=== PATIENT | male | born 1965 | race Caucasian/White ===

== ENCOUNTER 2020-08-02 20:58 | Inpatient (IN) | payer OTHER, SELFPAY ==
[2020-08-02] VITALS (7 sets, daily range): BP systolic 104–143; BP diastolic 77–89; PULSE 92–165; RESP 17–36; TEMP 37.6; O2SAT 77–98
--- NOTE | ~2020-08-02 | XR_ITS ---
EXAMINATION: XR chest 1V portable DATE: 08/14/2020 08:01 INDICATION: Respiratory failure TECHNIQUE: frontal view of the chest was obtained. COMPARISON: Chest radiograph dated 08/13/2020 FINDINGS: Endotracheal tube tip 8.6 cm above the shoaib. Nasogastric tube extends below the left hemidiaphragm with distal tip collimated off the study. Left internal jugular central venous catheter with distal tip at the caudal superior vena cava. Severe bullous emphysema in the upper lung zones. Patchy airspace opacities throughout both lungs. No pneumothorax or definitive pleural effusion. The cardiomediastinal silhouette is normal. IMPRESSION: 1. Endotracheal tube tip 8.6 cm above the shoaib. Recommend advancement by 5-6 cm. 2. No significant interval change in extensive bilateral lung disease which could represent pneumonia , adult respiratory distress syndrome (ARDS), pulmonary edema or some combination thereof. 3. Severe bullous emphysema in the upper lung zones. Reviewed, dictated and finalized at location A. FILLER IMPRESSION: 1. Endotracheal tube tip 8.6 cm above the shoaib. Recommend advancement by 5-6 cm. 2. No significant interval change in extensive bilateral lung disease which cou ld represent pneumonia, adult respiratory distress syndrome (ARDS), pulmonary e yarelis or some combination thereof. 3. Severe bullous emphysema in the upper lung zones.
--- NOTE | ~2020-08-02 | XR_ITS ---
EXAMINATION: XR chest 1V portable DATE: 08/04/2020 14:34 INDICATION: Shortness of breath. TECHNIQUE: A single frontal view of the chest was obtained. COMPARISON: Chest single view 08/02/2020 FINDINGS: There are lucencies in the lungs, consistent with emphysema. There are airspace opacities i n all lung zones bilaterally with a lower lung predominance. No pleural effusion or pneumothorax. The heart size is normal. IMPRESSION: 1. Stable diffuse lung disease, consistent with pulmonary edema versus pneumonia. 2. Emphysema. Reviewed, dictated and finalized at location B. CLING COORDINATOR IMPRESSION: 1. Stable diffuse lung disease, consistent with pulmonary edema versus pneumoni a. 2. Emphysema.
--- NOTE | ~2020-08-02 | XR_ITS ---
EXAMINATION: XR chest 1V portable INDICATION: Respiratory failure TECHNIQUE: Portable AP chest at 2126 hours COMPARISON: None available FINDINGS: There are diffuse interstitial and airspace opacities throughout all lung zones. No pleural effusion or pneumothorax is identified. The cardiomediastinal silhouette is normal. IMPRESSION: 1. Diffuse lung disease, consistent with pneumonia/or pulmonary edema. Reviewed, dictated and finalized at location A. RVISOR DITCHING
--- NOTE | ~2020-08-02 | XR_ITS ---
EXAMINATION: XR chest 1V portable EXAM DATE: 08/10/2020 06:22 INDICATION: Acute hypoxic respiratory failure, COVID-19 Acute hypoxic respiratory failure, COVID-19 . TECHNIQUE: Portable AP frontal chest x-ray was obtained. Comparison is made to prior examination from 08/09, 08/07. FINDINGS: Endotracheal tube tip is 7 centimeters above the shoaib. This could be safely advanced 2 c m. There is a nasogastric tube seen with tip collimated off the study, but below the left hemidiaphra gm. Right-sided PICC line tip overlying cavoatrial junction. There is bilateral apical medial bullous disease. There is extensive bilateral pneumonia and/or edema . There are no sizable pleural effusions. There is no pneumothorax suspected. Cardiomediastinal silhouette is normal. The bones and soft tissues are unremarkable. There is no significant interval change compared to prior exam. IMPRESSION: 1. ET tube could be safely advanced 2 cm. 2. Extensive bilateral infection and/or edema. Reviewed, dictated and finalized at location A. ERN CHANGER AND REPAIRER
--- NOTE | ~2020-08-02 | XR_ITS ---
EXAMINATION: XR chest 1V portable EXAM DATE: 08/09/2020 06:06 INDICATION: Acute hypoxic respiratory failure, COVID-19. TECHNIQUE: Portable AP frontal chest x-ray was obtained. Comparison is made to prior examination from 08/08, 08/07. FINDINGS: Endotracheal tube tip is 7 centimeters above the shoaib. This could be safely advanced 2 c m. There is a nasogastric tube seen with tip collimated off the study, but below the left hemidiaphra gm. Right-sided PICC line tip poorly visualized but below the level of the shoaib. There is bilateral apical medial bullous disease. There is extensive bilateral pneumonia and/or edema . There are no sizable pleural effusions. There is no pneumothorax suspected. Cardiomediastinal silhouette is normal. The bones and soft tissues are unremarkable. There is no significant interval change compared to prior exam. IMPRESSION: 1. ET tube could be safely advanced 2 cm. 2. Extensive bilateral infection and/or edema. Reviewed, dictated and finalized at location A. N FORMING MACHINE OPERATOR
--- NOTE | ~2020-08-02 | XR_ITS ---
EXAMINATION: XR chest port-a-cath/central DATE: 08/10/2020 15:10 INDICATION: JACC line placement TECHNIQUE: frontal view of the chest was obtained. COMPARISON: Chest radiograph dated 08/10/2020 FINDINGS: Right upper extremity peripherally inserted central venous catheter (PICC) as well as a left internal jugular central venous catheter, both with distal tips at the superior cavoatrial junction. Endotrac heal tube tip 9.8 cm above the shoaib. Nasogastric tube with distal tip in the body of the stomach an d proximal side port near the level of the gastroesophageal junction. Groundglass opacities and increased interstitial pattern in the bilateral mid and lower lung zones. N o pneumothorax or definitive pleural effusion. Biapical and paramediastinal bullous emphysema. The ca rdiomediastinal silhouette is normal. IMPRESSION: 1. Right upper extremity PICC line and left internal jugular central venous catheter, both with dista l tips at the superior cavoatrial junction. 2. Endotracheal tube tip 9.8 cm above the shoaib. Recommend advancement by 7.5 cm. Findings were disc ussed with Mandy Berumen, the nurse caring for the patient, at 3:25 PM. 3. Nasogastric tube tip in the stomach. Consider advancement by 2-[address] the proximal side-por t below the level of the gastroesophageal junction. 4. Interstitial and airspace opacities in the bilateral mid and lower lung zones which could represen t pulmonary edema, pneumonia or some combination thereof. 3. Bullous emphysema. Reviewed, dictated and finalized at location B. ARER SAMPLES AND REPAIRS IMPRESSION: 1. Right upper extremity PICC line and left internal jugular central venous cat heter, both with distal tips at the superior cavoatrial junction. 2. Endotracheal tube tip 9.8 cm above the shoaib. Recommend advancement by 7.5 cm. Findings were discussed with Mandy Berumen, the nurse caring for the patien t, at 3:25 PM. 3. Nasogastric tube tip in the stomach. Consider advancement by 2-[address] the proximal side-port below the level of the gastroesophageal junction. 4. Interstitial and airspace opacities in the bilateral mid and lower lung zone s which could represent pulmonary edema, pneumonia or some combination thereof. 3. Bullous emphysema.
--- NOTE | ~2020-08-02 | XR_ITS ---
EXAMINATION: XR chest ET placement DATE: 08/14/2020 09:40 INDICATION: Endotracheal tube placement. TECHNIQUE: frontal view of the chest was obtained. COMPARISON: Chest radiograph dated 08/14/2020 at 7:45 AM FINDINGS: Endotracheal tube tip 4.2 cm above the shoaib. Nasogastric tube tip in proximal side port in the body of the stomach. Left internal jugular central venous catheter with distal tip at the caudal superior vena cava. Persistent diffuse airspace opacities throughout the lungs with bullous changes at the upper lung zon es. No pneumothorax or pleural effusion. The cardiomediastinal silhouette is normal. Visualized bones and soft tissues are unremarkable. IMPRESSION: 1. Endotracheal tube advanced with distal tip now 4.1 cm above the shoaib. 2. Unchanged extensive bilateral lung disease which could represent pneumonia, adult respiratory dist ress syndrome (ARDS), pulmonary edema or some combination thereof. 3. Severe bullous emphysema in the upper lung zones. Reviewed, dictated and finalized at location A. CIATE DEAN IMPRESSION: 1. Endotracheal tube advanced with distal tip now 4.1 cm above the shoaib. 2. Unchanged extensive bilateral lung disease which could represent pneumonia, adult respiratory distress syndrome (ARDS), pulmonary edema or some combination thereof. 3. Severe bullous emphysema in the upper lung zones.
--- NOTE | ~2020-08-02 | XR_ITS ---
EXAMINATION: XR chest 1V portable INDICATION: Acute hypoxic respiratory failure, COVID 19 TECHNIQUE: Portable AP chest at 0630 hours COMPARISON: 08/07/2020 FINDINGS: A right upper extremity PICC ends with its tip at the superior cavoatrial junction. There a re diffuse opacities in all lung zones with slight interval worsening. Bullous changes again noted me dially in the upper lung zones. The cardiomediastinal silhouette is stable. No pleural effusion or pn eumothorax is identified. IMPRESSION: 1. Diffuse lung disease with interval worsening, consistent with pneumonia and/or pulmonary edema and /or acute respiratory distress syndrome (ARDS). Reviewed, dictated and finalized at location A. R TILING PROFESSIONAL IMPRESSION: 1. Diffuse lung disease with interval worsening, consistent with pneumonia and/ or pulmonary edema and/or acute respiratory distress syndrome (ARDS).
--- NOTE | ~2020-08-02 | XR_ITS ---
EXAMINATION: XR chest ET placement INDICATION: Endotracheal tube insertion TECHNIQUE: Portable AP chest at 0951 hours COMPARISON: 0630 hours FINDINGS: An endotracheal tube has been inserted which ends 7.6 cm above the shoaib. A right upper ex tremity PICC ends with its tip at the superior cavoatrial junction. Diffuse opacities persist in all lung zones without significant change. The cardiomediastinal silhouette is stable. There is no pleura l effusion or pneumothorax. Bullous changes are noted medially in the upper lobes. IMPRESSION: 1. Inserted endotracheal tube ending 7.6 cm above the shoaib. 2. Stable diffuse lung disease, consistent with pneumonia and/or pulmonary edema and/or acute respira tory distress syndrome (ARDS). Reviewed, dictated and finalized at location A. E CUTTER IMPRESSION: 1. Inserted endotracheal tube ending 7.6 cm above the shoaib. 2. Stable diffuse lung disease, consistent with pneumonia and/or pulmonary gely a and/or acute respiratory distress syndrome (ARDS).
--- NOTE | ~2020-08-02 | XR_ITS ---
EXAMINATION: XR abdomen NG/feed tube insert INDICATION: OG tube placement TECHNIQUE: Portable AP KUB-NG at 0952 hours COMPARISON: None available FINDINGS: The OG tube is not visualized. The tip of the PICC ends at the superior cavoatrial junction . There our unchanged opacities of the visualized lung bases. The bowel gas pattern is normal. IMPRESSION: 1. OG tube not visualized. Reviewed, dictated and finalized at location A. KING MACHINE OPERATOR IMPRESSION: 1. OG tube not visualized.
--- NOTE | ~2020-08-02 | CT_ITS ---
EXAMINATION:CT diagnostic chest wo con DATE: 08/12/2020 14:10 INDICATION: Respiratory failure. COVID-19 pneumonia. TECHNIQUE: Computed tomography (CT) of the chest was performed without intravenous contrast. Automate d exposure control and iterative reconstruction technique were employed. The dose-length product (DLP ) was 772.98 mGy-cm. COMPARISON: Chest single view 08/02/2020, 08/12/2020 FINDINGS: There is moderate emphysema. There are patchy groundglass and airspace opacities throughout the lungs bilaterally. There is mild bronchiectasis in the right middle lobe and lingula. No signifi cant pleural effusion. The heart size is normal. There is a small pericardial effusion. The endotrach eal tube tip is in expected position above the shoaib. The nasogastric tube tip is in the stomach. Th ere is a left internal jugular central venous catheter with tip in right atrium. There is mild medias tinal lymphadenopathy. IMPRESSION: 1. Diffuse lung disease, consistent with pneumonia versus acute respiratory distress syndrome (ARDS). Some component of pulmonary edema may be present. 2. Moderate emphysema. 3. Small pericardial effusion. 4. Mild mediastinal lymphadenopathy, likely reactive. Reviewed, dictated and finalized at location A. ET ASSISTANT PRESS OPERATOR IMPRESSION: 1. Diffuse lung disease, consistent with pneumonia versus acute respiratory dis tress syndrome (ARDS). Some component of pulmonary edema may be present. 2. Moderate emphysema. 3. Small pericardial effusion. 4. Mild mediastinal lymphadenopathy, likely reactive.
--- NOTE | ~2020-08-02 | XR_ITS ---
EXAMINATION: XR chest 1V portable EXAM DATE: 08/12/2020 06:27 INDICATION: Acute respiratory failure . COVID pneumonia. TECHNIQUE: Portable AP frontal chest x-ray was obtained. Comparison is made to prior examination from 08/11. FINDINGS: There is a left-sided internal jugular line, tip at the cavoatrial junction There is a naso gastric tube seen with tip collimated off the study, but below the left hemidiaphragm. Endotracheal tube tip is 6 centimeters above the shoaib. There is bilateral apical medial bullous disease. There is extensive bilateral pneumonia and/or edema . There are no sizable pleural effusions. There is no pneumothorax suspected. Cardiomediastinal silhouette is normal. The bones and soft tissues are unremarkable. Airspace disease appears unchanged. IMPRESSION: 1. Tubes, line in position. 2. Extensive bilateral infection and/or edema. Reviewed, dictated and finalized at location A. NT SUPPORT MANAGER
--- NOTE | ~2020-08-02 | XR_ITS ---
EXAMINATION: XR chest 1V portable EXAM DATE: 08/05/2020 05:56 INDICATION: Diffuse infiltrates bilaterally. TECHNIQUE: Portable AP frontal chest x-ray was obtained. Comparison is made to prior examination from 08/04, 08/02. FINDINGS: Moderate amount of bilateral mid and lower lung zone predominant infection or edema. Probab le bullous disease along the medial aspect of the right lung. Borderline heart size. No pneumothorax or pleural effusion. There are no osseous abnormalities identified. IMPRESSION: Moderate bilateral mid and lower lung zone pneumonia and/or edema. Reviewed, dictated and finalized at location A. TREATER HEAD
--- NOTE | ~2020-08-02 | XR_ITS ---
EXAMINATION: XR abdomen NG/feed tube insert EXAM DATE: 08/08/2020 15:48 INDICATION: Nasogastric tube placement. TECHNIQUE: Frontal projection(s) of the abdomen for interpretation. Comparison is made to prior exami nation from earlier same date. FINDINGS: Feeding tube tip and side-port project over gastric bubble, adequate. Unremarkable upper a bdominal bowel gas pattern. There is rather extensive bibasilar airspace disease. IMPRESSION: Feeding tube in position. Reviewed, dictated and finalized at location A. TY OF COUNTER INTELLIGENCE IMPRESSION: Feeding tube in position.
--- NOTE | ~2020-08-02 | XR_ITS ---
EXAMINATION: XR chest 1V portable EXAM DATE: 08/11/2020 05:55 INDICATION: Acute hypoxic respiratory failure, COVID-19. TECHNIQUE: Portable AP frontal chest x-ray was obtained. Comparison is made to prior examination from 08/10. FINDINGS: There is a left-sided internal jugular line, tip at the cavoatrial junction There is a naso gastric tube seen with tip collimated off the study, but below the left hemidiaphragm. Endotracheal tube tip is 7 centimeters above the shoaib. This could be safely advanced 2 cm. There is bilateral apical medial bullous disease. There is extensive bilateral pneumonia and/or edema . There are no sizable pleural effusions. There is no pneumothorax suspected. Cardiomediastinal silhouette is normal. The bones and soft tissues are unremarkable. Airspace disease appears unchanged. IMPRESSION: 1. ET tube could be safely advanced 2 cm. 2. Extensive bilateral infection and/or edema. Reviewed, dictated and finalized at location A. CLERK
--- NOTE | ~2020-08-02 | US_ITS ---
EXAMINATION: US renal BI DATE: 08/10/2020 09:25 INDICATION: Acute kidney injury. TECHNIQUE: Multiple ultrasound grayscale images of the kidneys were obtained. COMPARISON: None. FINDINGS: The right kidney measures 11.4 x 4.0 x 4.8 cm. The left kidney measures 11.1 x 5.4 x 5.0 cm. The kidn eys demonstrate normal parenchymal echogenicity. There is no hydronephrosis. The bladder is decompres sed by a Danielle catheter. There is diffuse hepatic steatosis. IMPRESSION: 1. Normal kidneys. No hydronephrosis. 2. Diffuse hepatic steatosis. Reviewed, dictated and finalized at location A. S AND LEASING AGENT
--- NOTE | ~2020-08-02 | XR_ITS ---
EXAMINATION: XR chest 1V portable EXAM DATE: 08/13/2020 06:29 INDICATION: Acute respiratory failure COVID 19 pneumonia. TECHNIQUE: Portable AP frontal chest x-ray was obtained. Comparison is made to prior examination from 08/11, 08/12. FINDINGS: There is a left-sided internal jugular line, tip at the cavoatrial junction There is a naso gastric tube seen with tip collimated off the study, but below the left hemidiaphragm. Endotracheal tube tip is 6 centimeters above the shoaib. There is bilateral apical medial bullous disease. There is extensive bilateral pneumonia and/or edema . There are no sizable pleural effusions. There is no pneumothorax suspected. Cardiomediastinal silhouette is normal. The bones and soft tissues are unremarkable. Several regions of the airspace disease appeared to be slightly more confluent on today's exam. IMPRESSION: 1. Tubes, line in position. 2. Extensive bilateral infection and/or edema. Reviewed, dictated and finalized at location A. SURVEYOR
--- NOTE | ~2020-08-02 | XR_ITS ---
EXAMINATION: XR chest 1V portable INDICATION: Acute hypoxic respiratory failure TECHNIQUE: Portable AP chest at 0542 hours COMPARISON: 08/05/2020 FINDINGS: Diffuse interstitial and airspace opacities persist throughout all lung zones with slight w orsening. Bullous changes of the lungs are noted immediately, right worse than left. There is no pleu ral effusion or pneumothorax. The cardiomediastinal silhouette is stable. IMPRESSION: 1. Diffuse lung disease with interval worsening, consistent with pneumonia and/or pulmonary edema and /or acute respiratory distress syndrome (ARDS). Reviewed, dictated and finalized at location A. H MANAGER IMPRESSION: 1. Diffuse lung disease with interval worsening, consistent with pneumonia and/ or pulmonary edema and/or acute respiratory distress syndrome (ARDS).
--- NOTE | ~2020-08-02 | XR_ITS ---
EXAMINATION: XR chest PICC line EXAM DATE: 08/07/2020 17:50 INDICATION: PICC line placement. Diffuse infiltrates bilaterally. TECHNIQUE: Portable AP frontal chest x-ray was obtained. Comparison is made to prior examination from 08/05, 08/07. FINDINGS: There is a right-sided PICC line with tip projecting over the cavoatrial junction. Moderat e amount of bilateral mid and lower lung zone predominant infection or edema, not significantly leung ed. Probable bullous disease along the medial aspect of the right lung. The cardiomediastinal silhoue tte is prominent but magnified on this AP technique. Cardiac silhouette is stable in size compared to prior exam. No pneumothorax or pleural effusion. There are no osseous abnormalities identified. IMPRESSION: 1. PICC line in position. 2. Moderate bilateral mid and lower lung zone pneumonia and/or edema. Reviewed, dictated and finalized at location A. Y LEVEL ACCOUNTING CLERK
--- NOTE | ~2020-08-02 | US_ITS ---
EXAMINATION: US venous doppler UE RT EXAM DATE: 08/10/2020 11:20 INDICATION: swelling of right arm. Right-sided PICC line. TECHNIQUE: Multiple grayscale, color flow, Doppler sonographic images of the right upper extremity ve ins obtained by technologist. Compression was performed where able. There is no prior study for daniel forrester. FINDINGS: Right upper extremity: Jugular vein: ------------> Normal. Subclavian vein: --------> Thrombosed. Axillary vein:------------> Thrombosed. Brachial vein:-----------> Normal. Basilic vein: ------------> Normal. Cephalic vein: ----------> Thrombosed. Radial vein: ------------> Normal. Ulnar vein: > Normal. IMPRESSION: Positive for right subclavian, axillary DVT, cephalic SVT. I called these positive results to ICU nurse Mandy at 08/10/2020 11:24 ORGAN FIXER Reviewed, dictated and finalized at location A. N FIXER
--- NOTE | 2020-08-02 21:04 | ED.SOB ---
HPI - SOB/Dyspnea General Chief Complaint: Shortness of Breath/Dyspnea Stated Complaint: sob Time Seen by Provider: 08/02/20 21:02 History of Present Illness HPI Narrative: History limited by medical condition 55 yo male w/ h/o htn brought in by EMS from custodial for respiratory distress. He reports that he has been sick for more than 1 week. He was previously having nausea, diarrhea, body aches. He believes that he was having fevers as well. More recently he developed cough and SOB. He was placed on 15L by NRB and O2 saturation is still in the 80s. No CP. 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 Related Data Allergies Allergy/AdvReac Type Severity Reaction Status Date / Time No Known Allergies Allergy Verified 08/02/20 21:37 Review of Systems Constitutional: Constitutional: Reports fever(s) ENT: Denies sore throat Cardiovascular: Cardiovascular: Denies chest pain Respiratory: Respiratory: Reports chest congestion, Reports cough and Reports dyspnea Gastrointestinal: Gastrointestinal: Denies abdominal pain and Denies nausea Musculoskeletal: Musculoskeletal: Denies back pain Neurologic: Reports weakness PMFSH Past Medical History Medical History HTN (hypertension) Exam Const: General: alert and ill appearing Orientation/consciousness: patient oriented x3 Other: moderate distress HENMT: Head: normal to inspection Other: NRB in place Neck: Neck: normal visual inspection Chest: Chest palpation & inspection: normal inspection of the chest and no tenderness Resp: Effort & Inspection: tachypneic Auscultation: crackles Cardio: Rate: tachycardic GI: GI Palp: Yes Soft to palpation and No Tenderness to palpation present (GI) Skin: General skin exam: normal color Neuro: General: patient oriented x3, moves all extremities and CN's II-XI intact bilaterally Extrem: General: normal to inspection and no edema Course Vital Signs Vital signs: Vital Signs Temperature 37.6 C 08/02/20 20:58 Pulse Rate 165 H 08/02/20 20:58 Respiratory Rate 36 H 08/02/20 20:58 Blood Pressure 143/86 H 08/02/20 20:58 Pulse Oximetry 88 L 08/02/20 20:58 Temperature 37.6 C 08/02/20 20:58 Pulse Rate 94 08/02/20 22:46 Respiratory Rate 25 H 08/02/20 22:46 Blood Pressure 120/86 08/02/20 22:46 Pulse Oximetry 97 08/02/20 22:46 MDM - SOB/Dyspnea MDM Narrative Medical decision making narrative: He presneted in respiratory failure and very tachycardic. He was placed on BIPAP with significant improvement. Rhythm was difficult to determine. He was given a dose of diltiazem with incomplete response. On repeat EKG there were still no visible p-waves. He was given 6mg adenosine with change, followed by 12 mg. He then converted to sinus. X-ray concerning for pneumonia. Most likely COVID, but I will start antibiotics until this can be confirmed. Differential Diagnosis Differential diagnosis: Likely acute exacerbation of chronic obstructive airways disease, congestive heart failure, community acquired pneumonia, pulmonary embolism and other (SVT, a-fib) Medical Records Attestation: I reviewed the patient's medical records. Lab Data Attestation: I reviewed the patient's lab results. Result diagrams: 08/02/20 21:18 08/02/20 21:18 Labs: Lab Results 08/02/20 08/02/20 08/02/20 Range/Units 21:18 21:18 21:18 WBC 7.5 (4.5-10.0) K/mm3 RBC 5.41 (4.6-6.20) M/mm3 Hgb 15.9 (14.0-18.0) g/dL Hct 46.4 (42.0-52.0) % MCV 85.8 (80-100) fl MCH 29.4 (26-34) pg MCHC 34.3 (32-36) g/dl RDW 12.7 (11.5-14.5) % Plt Count 143 L (150-375) k/mm3 MPV 10.8 H (7.4-10.4) fl Immature Gran % (Auto) Not Reportable Neut % (Auto) Not Reportable Lymph % (Auto) Not Reportable [place] % (Auto) Not Reportable Eos % (Auto) Not Reportable Baso % (Auto) Not Reportable L
--- NOTE | 2020-08-02 21:07 | ECG_ITS ---
Measurements Intervals [place] Rate: 166 P: ND: 0 QRS: 110 QRSD: 84 T: 29 QT: 252 QTc: 420 Interpretive Statements SUPRAVENTRICULAR TACHYCARDIA RIGHT AXIS DEVIATION ST-T WAVE ABNORMALITY IN INFERIOR LEADS- CONSIDER ISCHEMIA BASELINE ARTIFACT- I, II, III, AVR, AVL, AVF ABNORMAL ECG Electronically Signed On 08-02-2020 21:46:42 HEAD WOOD GRINDER by Jair Enamorado D.O.
[2020-08-02] MEDS: dilTIAZem HCl INJ 25 MG/5 ML VIAL (21:14)
[2020-08-02 21:29] LABS: Hematocrit 46.4 % (42.0-52.0); Hemoglobin 15.9 g/dL (14.0-18.0); Immature Platelet Fraction Pct 7.4 % (0.9-11.2); Mean Corpuscular HGB Conc 34.3 g/dl (32-36); Mean Corpuscular Hemoglobin 29.4 pg (26-34); Mean Corpuscular Volume 85.8 fl (80-100); Mean Platelet Volume 10.8 fl (7.4-10.4); Platelet Count Result 143 k/mm3 (150-375); Red Blood Count 5.41 M/mm3 (4.6-6.20); Red Cell Distribution Width 12.7 % (11.5-14.5); White Blood Count 7.5 K/mm3 (4.5-10.0)
[2020-08-02 21:42] LABS: Lactic Acid Reflex 2.3 mmol/L (0.7-2.1)
[2020-08-02 21:45] LABS: Alanine Aminotransferase 47 U/L (4-50); Alkaline Phosphatase 80 U/L (38-126); Anion Gap 9 mmol/L (8-16); Aspartate Amino Transferase 121 U/L (17-59); Band Neutrophils Percent 7 % (0-6); Bilirubin,Total 0.6 mg/dL (0.2-1.3); Blood Urea Nitrogen 24 mg/dL (9-20); CRP 4.6 mg/dL (<1.0); Calcium 8.4 mg/dL (8.4-10.2); Carbon Dioxide 27 mmol/L (22-30); Chloride 98 mmol/L (98-107); Estimated CRCL calculation 58 ml/min; Estimated Glomerular Filt Rate 42; Glucose 155 mg/dL (75-110); Monocytes Absolute Manual 0.82 K/mm3 (0.1-0.90); Monocytes Percent Manual 11 % (3-9); Neutrophils Absolute Manual 4.87 K/mm3 (1.3-6.7); Neutrophils Percent Manual 58 % (46-73); Potassium 3.8 mmol/L (3.4-5.0); Sodium 134 mmol/L (137-145); Total Cells Counted 100
--- NOTE | 2020-08-02 21:47 | ECG_ITS ---
Measurements Intervals [place] Rate: 153 P: AL: 0 QRS: 90 QRSD: 84 T: 36 QT: 272 QTc: 434 Interpretive Statements SUPRAVENTRICULAR TACHYCARDIA BORDERLINE ST-T WAVE ABNORMALITY- INFERIOR LEADS BASELINE WANDER- I, II, AVR, AVL, AVF ABNORMAL ECG Electronically Signed On 08-03-2020 7:14:00 CHIEF SCIENTIFIC OFFICER by Jair Enamorado D.O.
[2020-08-02 21:51] LABS: NT Pro B Type Natriuretic Pept 82 PG/ML (5-100)
[2020-08-02 21:53] LABS: Troponin I 0.019 ng/mL (0.000-0.034)
[2020-08-02 21:58] LABS: INR 0.9; Prothrombin Time 12.8 Seconds (11.1-14.7)
[2020-08-02 21:59] LABS: Partial Thromboplastin Time 29.7 SECONDS (22.3-36.8)
[2020-08-02] MEDS: ADENOSINE IV SOLN 6 MG/2 ML VIAL IV PUSH (22:05)
[2020-08-02] MEDS: SODIUM CHLORIDE 0.9% IV 1,000 ML 999 ML IV CONT (22:11)
[2020-08-02] MEDS: ADENOSINE IV SOLN 6 MG/2 ML VIAL 12 MG (22:12)
[2020-08-02 22:54] LABS: Alveolar/Arterial O2 Gradient 554.8 mmHg; Base Excess ABG -0.6 mEq/l (+/-2.0); Device BIPAP; Fractional Inspired Oxygen 100 %; HCO3 ABG 23.2 mEq/l (22.0-26.0); Inspiratory Pressure 12 cmH2O; Modified Allen's Test Pass; Oxygen Content ABG 20.1 %vol (16.0-22.0); Oxygen Saturation ABG 98.5 % (95.0-100.0); PCO2 ABG 35.8 mmHg (35.0-45.0); PO2 ABG 122.4 mmHg (80.0-100.0); PO2 FiO2 Ratio Arterial Blood 1.22 %; Site Drawn RIGHT RADIAL; Total Hemoglobin 14.6 g/dL (12.0-18.0); pH ABG 7.429 (7.350-7.450)
[2020-08-02 22:55] LABS: Expiratory Pressure 6 cmH2O
[2020-08-03] VITALS (21 sets, daily range): BP systolic 132–155; BP diastolic 74–87; PULSE 69–96; RESP 18–39; TEMP 36.3–36.7; O2SAT 90–97; BMI 31.4
[2020-08-03 00:25] LABS: Reflex Lactic Acid Yes or No Add Lactic
--- NOTE | 2020-08-03 00:33 | ADMGEN ---
This patient, Inocente Brink, was admitted to IMU Room 213-01. Patient/family oriented to hospital policies and general routines including ID bracelet, bed and alarms, visiting hours, pain management, procedures, bathroom and other care routines, personal items, smoking policy, room service/diet, and visiting hours. Information on how to activate the Rapid Response Team has been discussed. Patient/Family are encouraged to report perceived risks to care and to ask questions if they do not understand what they are told or what they should do. Report from Stephanie ISLVA approx [id number]
[2020-08-03] MEDS: LACTATED RINGERS 1,000 ML 100 ML IV CONT ×2 (00:51→11:00)
[2020-08-03 01:29] LABS: Lactic Acid 1.3 mmol/L (0.7-2.1)
[2020-08-03] MEDS: ALBUTEROL SULFATE NEB 2.5 MG/0.5 ML INH 5 MG INHALATION (03:13)
--- NOTE | 2020-08-03 04:03 | PM.IMHP ---
H&P: HPI History of Present Illness Date/Time: 08/03/20 04:03 Chief Complaint: acute respiratory distress Narrative: This is a 55 year old male with known HTN and hyperlipidemia who was [facility] secondary to increased shortness of breath and respiratory distress tonight. The patient has had increased shortness of breath, cough, fever, fatigue, body aches and pains for the past week. The patient was initiated on Bipap in the ER tonight. He denies any chest pain, palpitations, abdominal pain, diarrhea, or LE swelling. Routine labs were obtained which demonstrated acute renal failure. CXR showed siffuse lung disease, consistent with pneumonia/or pulmonary edema. We was swabbed for COVID-19 and treated with bronchodilators, antibiotics, and dexamethasone IV. 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 While in the ER tonight the patient did develop SVT and converted back to sinus rhythm with a dose of adenosine IVP. Review of Systems Review of Systems: All systems reviewed & are unremarkable except as noted in HPI and below PMFSH Past Medical History Medical History (Updated 08/03/20 @ 04:57 by Sukumar Soto MD) HTN (hypertension) Hyperlipidemia Family History Family History Father Heart attack Mother Ovarian ca Sibling Diabetes mellitus Social History Social History Smoking status: Never smoker Alcohol intake: never Substance use: never Gender identity (if verbalized by the patient): Male Spiritual care concerns: No Meds Home Medications and Allergies Home Medications Medication Instructions Recorded Confirmed Type amlodipine 10 mg PO DAILY 08/03/20 08/03/20 History mirtazapine 30 mg PO DAILY 08/03/20 08/03/20 History omeprazole 20 mg PO DAILY 08/03/20 08/03/20 History sertraline 50 mg PO DAILY 08/03/20 08/03/20 History simvastatin 20 mg PO HS 08/03/20 08/03/20 History tamsulosin 0.4 mg PO DAILY 08/03/20 08/03/20 History Allergies Allergy/AdvReac Type Severity Reaction Status Date / Time strawberry Allergy Unknown Unknown Verified 08/03/20 00:39 hot sauce Allergy Unknown Unknown Uncoded 08/03/20 00:39 Vital Signs Vital Signs - 24 hr 08/02/20 20:58 08/02/20 21:31 08/02/20 21:40 Temperature 37.6 C Pulse Rate 165 H 161 H 157 H Respiratory Rate 36 H 33 H 22 H Blood Pressure 143/86 H 104/80 Pulse Oximetry 88 L 77 L 94 08/02/20 22:10 08/02/20 22:27 08/02/20 22:31 Temperature Pulse Rate 92 92 95 Respiratory Rate 24 H 17 20 Blood Pressure 123/78 104/77 121/89 Pulse Oximetry 98 98 98 08/02/20 22:46 08/03/20 00:00 08/03/20 02:00 Temperature 36.6 C Pulse Rate 94 86 87 Respiratory Rate 25 H 39 H Blood Pressure 120/86 155/87 H Pulse Oximetry 97 97 08/03/20 02:09 08/03/20 03:13 08/03/20 03:45 Temperature Pulse Rate 86 82 Respiratory Rate 25 H 25 H Blood Pressure Pulse Oximetry 96 93 Exam Const: General: cooperative, alert, awake, in distress respiratory and ill appearing Nutritional Appearance: obese Orientation/consciousness: patient oriented x3 HENMT: Head: normal to inspection General nose exam: Normal external nose present Face and sinus: normal facial exam Mouth: Yes Normal oral and palatal mucosa present and Yes oropharynx normal Eyes: Pupils: Equal, round and reactive pupils present EOM: EOMs intact bilaterally Neck: Neck: supple and no JVD Thyroid: thyroid normal Lymphatic: lymphadenopathy not noted Resp: Effort & Inspection: labored and tachypneic Auscultation: rales bilateral and diminished lung sounds bilateral Cardio: Rate: tachycardic Rhythm: regular rhythm Heart sounds: no murmurs GI: Inspection: normal to inspection Auscultation: normal bowel sounds Skin: General skin exam: normal color and no rashes or lesions noted Neuro: General: patient oriented x3 C
[2020-08-03 05:08] LABS: Basophils Percent Auto 0.2 % (0.2-1.2); Hematocrit 41.5 % (42.0-52.0); Hemoglobin 14.2 g/dL (14.0-18.0); Immature Granulocyte Absolute 0.02 K/mm3 (0.00-0.031); Immature Granulocyte Percent A 0.4 % (0-0.5); Lymphocytes Absolute Auto 0.71 K/mm3 (0.9-3.2); Lymphocytes Percent Auto 12.5 % (18.3-44.2); Mean Corpuscular HGB Conc 34.2 g/dl (32-36); Mean Corpuscular Volume 84.9 fl (80-100); Mean Platelet Volume 9.8 fl (7.4-10.4); Monocytes Absolute Auto 0.4 K/mm3 (0.1-0.6); Monocytes Percent Auto 7.1 % (2.6-8.5); Neutrophils Absolute Auto 4.5 K/mm3 (1.3-6.7); Neutrophils Percent Auto 79.8 % (45.5-73.1); Platelet Count Result 157 k/mm3 (150-375); Red Blood Count 4.89 M/mm3 (4.6-6.20); Red Cell Distribution Width 12.3 % (11.5-14.5); White Blood Count 5.7 K/mm3 (4.5-10.0)
[2020-08-03 05:19] LABS: Anion Gap 6 mmol/L (8-16); Blood Urea Nitrogen 22 mg/dL (9-20); Calcium 7.9 mg/dL (8.4-10.2); Carbon Dioxide 27 mmol/L (22-30); Chloride 100 mmol/L (98-107); Estimated CRCL calculation 71 ml/min; Estimated Glomerular Filt Rate 52; Glucose 207 mg/dL (75-110); Magnesium 2.1 mg/dL (1.6-2.3); Potassium 4.5 mmol/L (3.4-5.0); Sodium 133 mmol/L (137-145)
[2020-08-03 05:44] LABS: Hemoglobin A1C 6.8 % (<5.7)
[2020-08-03 06:26] LABS: Thyroid Stimulating Hormone Reflex 0.227 uIU/mL (0.465-4.68)
[2020-08-03] MEDS: ENOXAPARIN 40 MG/0.4 ML SYRINGE SUB-Q (08:13)
[2020-08-03] MEDS: SERTRALINE HCL 50 MG TABLET PO (08:16)
[2020-08-03] MEDS: PANTOPRAZOLE SOD SESQUIHYDRATE 20 MG TAB PO (08:16)
[2020-08-03] MEDS: TAMSULOSIN HCL 0.4 MG CAPSULE PO (08:16)
[2020-08-03] MEDS: amLODIPine BESYLATE 5 MG TABLET 10 MG PO (08:16)
[2020-08-03] MEDS: MIRTAZAPINE 30 MG TABLET PO (08:16)
[2020-08-03] MEDS: LEVALBUTEROL HFA (*SP) 15 GM INHALER 2 PUFF INHALATION ×3 (08:33→21:57)
[2020-08-03 09:25] LABS: Free T4 Free Thyroxine Reflex 0.85 ng/dL (0.78-2.19)
--- NOTE | 2020-08-03 10:46 | PM.CNCAR ---
Assessment and Plan Assessment and plan (1) SVT (supraventricular tachycardia): Code(s): I47.1 - Supraventricular tachycardia Status: Resolved Assessment and Plan: New onset of SVT, probably related to adrenergic excess due to the patient's acute illness. No recurrence since admission. TSH was low, further thyroid testing is still pending No specific therapy recommended at this time, since I think the likelihood of recurrence is low. Adenocard 12 mg IVP if recurrence. Will follow on telemetry. (2) Suspected 2019-nCoV infection: Code(s): Z20.822 - Contact with and (suspected) exposure to COVID-19 Status: Acute Assessment and Plan: Hypoxic on admission with elevated lactic acid. Being treated for possible COVID pneumonia. (3) HTN (hypertension): Qualifiers: Hypertension type: unspecified Qualified Code(s): I10 - Essential (primary) hypertension Code(s): I10 - Essential (primary) hypertension Status: Chronic Assessment and Plan: Today but is on therapy. Will follow. (4) Acute renal failure: Qualifiers: Acute renal failure type: unspecified Qualified Code(s): N17.9 - Acute kidney failure, unspecified Code(s): N17.9 - Acute kidney failure, unspecified Status: Acute Assessment and Plan: Acute renal failure which seems to be improving. History of Present Illness History of Present Illness Consult date/time: Date of service: 08/03/20 10:46 Consult reason: Other (PSVT) Reason For Visit: Acute hypoxemic respiratory failure, Pneumonia, Narrative: DOS: 08/03/2020 Mr. Inocente Rodriguez is a 55-year-old male whom we were asked to see at the request of the hospitalist for advice and opinion regarding his SVT, in consultation. 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 Yesterday he was so weak he could not stand up. He felt palpitations. No chest pain. When the ambulance arrived his O2 saturations were in the 70s to 80s and his heart rate was in the 160s to 170s. He was brought to the ER and was in SVT. He was given adenosine 6 mg followed by 12 mg and converted to sinus rhythm. He has maintained sinus rhythm overnight. He had a low grade temperature. His x-ray is concerning for pneumonia and is being treated for presumed COVID pneumonia. The patient has a history of hypertension. He has never had any tachycardia or SVT in the past. He has no specific history of heart disease, heart attacks or heart failure. He wants passed out and was told his heart rate was too low. No recurrent syncope. No diabetes (the found to have elevated blood sugars and A1c of 6.8 on this admission) or smoking. Reviewed records in [facility]; only visit through [facility] was in 2017, an ER visit for [facility] [employer]. The hisroty in that record showed HTN, a suicide attempt, a cardiac arrest, and anti phospholipid syndrome. There were no records of this pt in Care Everywhere. Review of Systems Constitutional: Constitutional: Reports body ache(s), Reports chills, Reports fatigue, Reports lethargy and Reports weakness Eyes: Eyes: Reports no additional eye complaints ENT: Denies epistaxis and Denies nasal congestion Cardiovascular: Cardiovascular: Denies chest pain, Denies pedal edema, Reports lightheadedness and Reports palpitations Respiratory: Respiratory: Denies chest congestion, Reports cough, Denies hemoptysis, Reports dyspnea, Reports dyspnea on exertion and Denies wheezing Gastrointestinal: Gastrointestinal: Denies abdominal
[2020-08-03 11:27] LABS: Total Triiodothyronine (T3) 0.71 NG/ML (0.97-1.69)
--- NOTE | 2020-08-03 17:47 | PM.IMPN ---
Progress Note: A&P Assessment and Plan (1) Suspected 2019-nCoV infection: Code(s): Z20.822 - Contact with and (suspected) exposure to COVID-19 Status: Acute Assessment and Plan: High suspicion for COVID-19 but results are pending. Continue droplet isolation. Continus Dexamethasone IV. Supportive care. Antitussives. Consider starting Remdesivir if COVID-19 Continue monitoring. (2) Acute respiratory failure with hypoxia: Code(s): J96.01 - Acute respiratory failure with hypoxia Status: Acute Assessment and Plan: Appears to be secondary to pneumonia - likely COVID-19 pneumonia. He was able to be weaned off BiPAP and is down high-flow nasal cannula. Continue treatment of pneumonia. RT assess and treat. Continuous pulse oximetry. (3) Pneumonia: Qualifiers: Laterality: bilateral Lung location: unspecified part of lung Pneumonia type: due to unspecified organism Qualified Code(s): J18.9 - Pneumonia, unspecified organism Code(s): J18.9 - Pneumonia, unspecified organism Status: Acute Assessment and Plan: Likely COVID-19 pneumonia. Continue IV antibiotics for now and de escalate when possible. Denies much of a cough, most likely from COVID. Sputum cultures, urine pneumococcal antigen. Bronchodilators PRN and scheduled. (4) SVT (supraventricular tachycardia): Code(s): I47.1 - Supraventricular tachycardia Status: Resolved Assessment and Plan: Likely secondary to acute respiratory failure. Able to be converted in the ER with IV adenosine now in normal sinus rhythm. Cardiology consulted for further evaluation. Check all electrolytes. Continue telemetry. Cardiology consultation in am. (5) Acute renal failure: Qualifiers: Acute renal failure type: unspecified Qualified Code(s): N17.9 - Acute kidney failure, unspecified Code(s): N17.9 - Acute kidney failure, unspecified Status: Acute Assessment and Plan: Acute vs. Chronic renal failure Will DC IV fluids at this time. Renal function is improved and 1.4 today. Do not want to overload on fluids if he has COVID. Monitor urine output and renal function. Avoid nephrotoxic agents, renally dose medications. Consider renal ultrasound and nephrology consultation if renal function does not improve. (6) Abnormal glucose: Code(s): R73.09 - Other abnormal glucose Status: Acute Assessment and Plan: r/o undiagnosed diabetes mellitus. HgbA1c 6.8%. Will start sliding scale insulin. Glucose check ACHS. Hypoglycemic protocol in place. (7) HTN (hypertension): Qualifiers: Hypertension type: unspecified Qualified Code(s): I10 - Essential (primary) hypertension Code(s): I10 - Essential (primary) hypertension Status: Chronic Assessment and Plan: Stable. 144/83. Monitor blood pressure. Continue amlodipine. (8) Hyperlipidemia: Qualifiers: Hyperlipidemia type: unspecified Qualified Code(s): E78.5 - Hyperlipidemia, unspecified Code(s): E78.5 - Hyperlipidemia, unspecified Status: Chronic Assessment and Plan: Resume home statin therapy in am. Time Spent With Patient Time with patient: 25 - 35 minutes Subjective Date/time seen: 08/03/20 17:47 Interval history: Date of service 08/03/2020: The patient is escorted by state police since he came from skilled nursing. Today he does report some shortness of breath but is resting comfortably on high-flow nasal cannula. He did have worsening shortness of breath with a
[2020-08-03 18:38] LABS: SARS-CoV-2 RNA PCR Negative
[2020-08-03] MEDS: SODIUM CHLORIDE NASAL GEL 14.1 GM 1 APPLIC NASAL (19:57)
[2020-08-03 22:02] LABS: Glucose Point of Care 373 (65-105)
[2020-08-04] VITALS (25 sets, daily range): BP systolic 126–155; BP diastolic 72–96; PULSE 69–92; RESP 20–38; TEMP 36.2–36.8; O2SAT 90–100
[2020-08-04 05:51] LABS: Basophils Percent Auto 0.1 % (0.2-1.2); Hematocrit 42.9 % (42.0-52.0); Hemoglobin 14.9 g/dL (14.0-18.0); Immature Granulocyte Absolute 0.07 K/mm3 (0.00-0.031); Immature Granulocyte Percent A 0.6 % (0-0.5); Lymphocytes Absolute Auto 1.06 K/mm3 (0.9-3.2); Lymphocytes Percent Auto 8.5 % (18.3-44.2); Mean Corpuscular HGB Conc 34.7 g/dl (32-36); Mean Corpuscular Hemoglobin 29.6 pg (26-34); Mean Corpuscular Volume 85.3 fl (80-100); Mean Platelet Volume 9.9 fl (7.4-10.4); Monocytes Absolute Auto 0.9 K/mm3 (0.1-0.6); Monocytes Percent Auto 7.6 % (2.6-8.5); Neutrophils Absolute Auto 10.4 K/mm3 (1.3-6.7); Neutrophils Percent Auto 83.2 % (45.5-73.1); Platelet Count Result 229 k/mm3 (150-375); Red Blood Count 5.03 M/mm3 (4.6-6.20); Red Cell Distribution Width 12.5 % (11.5-14.5); White Blood Count 12.4 K/mm3 (4.5-10.0)
[2020-08-04 07:42] LABS: Alanine Aminotransferase 45 U/L (4-50); Albumin Level 3.5 g/dL (3.5-5.1); Alkaline Phosphatase 74 U/L (38-126); Anion Gap 2 mmol/L (8-16); Aspartate Amino Transferase 95 U/L (17-59); Bilirubin,Total 0.6 mg/dL (0.2-1.3); Blood Urea Nitrogen 22 mg/dL (9-20); CRP 4.9 mg/dL (<1.0); Calcium 8.5 mg/dL (8.4-10.2); Carbon Dioxide 31 mmol/L (22-30); Chloride 101 mmol/L (98-107); Estimated CRCL calculation 89 ml/min; Estimated Glomerular Filt Rate > 60; Glucose 219 mg/dL (75-110); Potassium 5.1 mmol/L (3.4-5.0); Sodium 134 mmol/L (137-145)
[2020-08-04 07:56] LABS: Ferritin > 2000.00 ng/mL (11.1-264)
[2020-08-04 08:09] LABS: Lactate Dehydrogenase 2648 U/L (313-618)
[2020-08-04] MEDS: SERTRALINE HCL 50 MG TABLET PO (09:01)
[2020-08-04] MEDS: PANTOPRAZOLE SOD SESQUIHYDRATE 20 MG TAB PO (09:01)
[2020-08-04] MEDS: amLODIPine BESYLATE 5 MG TABLET 10 MG PO (09:01)
[2020-08-04] MEDS: MIRTAZAPINE 30 MG TABLET PO (09:01)
[2020-08-04] MEDS: TAMSULOSIN HCL 0.4 MG CAPSULE PO (09:01)
[2020-08-04] MEDS: ENOXAPARIN 40 MG/0.4 ML SYRINGE SUB-Q ×2 (09:02→19:48)
[2020-08-04 11:26] LABS: Glucose Point of Care 197 (65-105)
[2020-08-04 12:34] LABS: Glucose Point of Care 340 (65-105)
[2020-08-04] MEDS: INSULIN ASPART (*BKC) 100 UNITS/ML SUB-Q ×2 (12:52→19:05)
--- NOTE | 2020-08-04 14:20 | PM.IMPN ---
Progress Note: A&P Assessment and Plan (1) Suspected 2019-nCoV infection: Code(s): Z20.822 - Contact with and (suspected) exposure to COVID-19 Status: Acute Assessment and Plan: High suspicion for COVID since he is currently in alf and multiple people in his wean have tested positive. His 1st COVID test on 07/30/2020 was negative but we retested last night and results are pending. Based on the patient's symptoms and respiratory status he does appear to have COVID-19. He has worsening shortness of breath today and is currently on BiPAP with tachypnea and is getting tired on the BiPAP. Will order Stat ABG and repeat CXR The molding sander was consulted who is moving him to the ICU for a closer evaluation and possibly intubation if his respiratory status continues to deteriorate. The intensive is asked me to call the infectious disease specialist in regards to starting IV Tocilizumab and Dr. Flores does recommend starting. Started on Remdesivir and continue Dexamethasone IV. Continue droplet isolation. Supportive care. Antitussives. (2) Acute respiratory failure with hypoxia: Code(s): J96.01 - Acute respiratory failure with hypoxia Status: Acute Assessment and Plan: Appears to be secondary to pneumonia - likely COVID-19 pneumonia. Respiratory status deteriorated today and he is currently on BiPAP, tachypneic and is going to be moved to ICU for further evaluation and care and possible intubation if he continues to deteriorate and becomes hypoxic. Continue treatment of COVID pneumonia. RT assess and treat. Continuous pulse oximetry. (3) Pneumonia: Qualifiers: Laterality: bilateral Lung location: unspecified part of lung Pneumonia type: due to unspecified organism Qualified Code(s): J18.9 - Pneumonia, unspecified organism Code(s): J18.9 - Pneumonia, unspecified organism Status: Acute Assessment and Plan: Likely COVID-19 pneumonia. Continue IV antibiotics for now and de escalate when possible. Denies much of a cough, most likely from COVID. Sputum cultures, urine pneumococcal antigen. Bronchodilators PRN and scheduled. (4) SVT (supraventricular tachycardia): Code(s): I47.1 - Supraventricular tachycardia Status: Resolved Assessment and Plan: Likely secondary to acute respiratory failure. Able to be converted in the ER with IV adenosine now in normal sinus rhythm. Cardiology evaluated the patient who believes that is due to his acute illness. Recommended continue monitoring and to administer 12 mg of IV Adenocard if it reoccurs. Check all electrolytes. Continue telemetry. Cardiology consultation in am. (5) Acute renal failure: Qualifiers: Acute renal failure type: unspecified Qualified Code(s): N17.9 - Acute kidney failure, unspecified Code(s): N17.9 - Acute kidney failure, unspecified Status: Acute Assessment and Plan: Acute vs. Chronic renal failure Will DC IV fluids 08/03/2020. Renal function is improved and 1.1 today. Do not want to overload on fluids if he has COVID. Monitor urine output and renal function. Avoid nephrotoxic agents, renally dose medications. Consider renal ultrasound and nephrology consultation if renal function does not improve. (6) Abnormal glucose: Code(s): R73.09 - Other abnormal glucose Status: Acute Assessment and Plan: Appears patient may have diabetes which seems to be new onset. Is also on steroids at this time. HgbA1c 6.8%. Serum glucose this morning was 219. Will start sliding scale insulin. Glucose check ACHS. Hypoglycemic protocol in place. (7) HTN (hypertension):
--- NOTE | 2020-08-04 14:38 | WPDCNINT ---
Assessment and Plan Assessment and plan (1) Acute respiratory failure with hypoxia: Code(s): J96.01 - Acute respiratory failure with hypoxia Status: Acute Assessment and Plan: Acute respiratory failure requiring BiPAP /, 100% FiO2 -likely related to COVID-19 pneumonia as a lot of people tested positive COVID-19 in the presence -SARS-CoV-2 PCR on 08/02 was negative, repeat SARS-CoV-2 PCR pending -continue BiPAP for now, will transfer patient to ICU for closer monitoring -repeat chest x-ray shows stable diffuse lung disease consistent with pulmonary versus pneumonia, emphysema - ABGs reviewed -discussed with patient that if his condition worsens he will require mechanical ventilation to which she agrees (2) Suspected 2019-nCoV infection: Code(s): Z20.822 - Contact with and (suspected) exposure to COVID-19 Status: Acute Assessment and Plan: SARS-CoV-2 PCR PCR on 08/02 is negative, repeat SARS-CoV-2 PCR on 08/04 is pending -continue droplet, airborne and contact isolation/precautions -continue dexamethasone which was initiated on 08/03/2020 -infectious disease consulted and recommended that patient is a candidate for Tocilizumab from EMPACTA trial -will start Remdesivir -transfuse convalescent plasma -elevated LDH, ferritin, CRP -will monitor inflammatory markers (3) SVT (supraventricular tachycardia): Code(s): I47.1 - Supraventricular tachycardia Status: Resolved Assessment and Plan: In the ED on admission patient had an episode of SVT which resolved with adenosine IV x1 -cardiology following the patient -SVT likely secondary to respiratory distress, no further episodes (4) Acute renal failure: Qualifiers: Acute renal failure type: unspecified Qualified Code(s): N17.9 - Acute kidney failure, unspecified Code(s): N17.9 - Acute kidney failure, unspecified Status: Acute Assessment and Plan: Acute kidney injury on admission with creatinine of 1.7, patient given IV fluids, urine output has been adequate, creatinine down to normal on 08/04/2020 -continue monitor urine output, electrolytes and renal function (5) Hyperglycemia: Code(s): R73.9 - Hyperglycemia, unspecified Status: Acute Assessment and Plan: Hyperglycemia likely related to dexamethasone -will increase high-dose sliding scale -may require long-acting insulin (6) DVT prophylaxis: Code(s): Z29.9 - Encounter for prophylactic measures, unspecified Status: Acute Assessment and Plan: Will increase Lovenox to 40 mg subcu q.12 hours Additional Plan Discussed with patient updated with his condition and plan of care. I answered all questions. He is aware that if his condition worsens he may require mechanical ventilation to which she agrees Code status: Full code Critical care time spent: 46 minutes Due to a high probability of clinically significant, life threatening deterioration, the patient required my highest level of preparedness to intervene emergently and I personally spent this critical care time directly and personally managing the patient. This critical care time included obtaining a history; examining the patient; pulse oximetry; ordering and review of studies; arranging urgent treatment with development of a management plan; evaluation of patient's response to treatment; frequent reassessment; and discussions with other providers. It was exclusive of separately billable procedures and treating other patients and teaching time. Please see Assessment and Plan section and the rest of the note for further information on patient assessment and treatment Associate Professor Consult Note Consult date: 08/04/20 Time Seen: 14:31 Reason for consult: Acute hypoxic respiratory failure, suspect COVID-19, SARS-CoV-2 PCR pending HPI: Inocente Brink is a 55 year old male with past medical history of hypertension, hyperlipidemia was brought to the ED on 08/02/2020 with
[2020-08-04 14:45] LABS: Alveolar/Arterial O2 Gradient 603.1 mmHg; Base Excess ABG -0.7 mEq/l (+/-2.0); Carboxyhemoglobin 0.3 % THb (0-2.0); Fractional Inspired Oxygen 100 %; HCO3 ABG 24.4 mEq/l (22.0-26.0); Methemoglobin ABG 0.6 %THb (0-1.5); Oxygen Content ABG 19.6 %vol (16.0-22.0); Oxygen Saturation ABG 93.4 % (95.0-100.0); Oxyhemoglobin 91.9 % THb (90.0-100.0); PCO2 ABG 41.7 mmHg (35.0-45.0); PO2 ABG 68.2 mmHg (80.0-100.0); PO2 FiO2 Ratio Arterial Blood 0.68 %; Reduced Hemoglobin 7.2 %THb (0-5.0); Total Hemoglobin 15.2 g/dL (12.0-18.0); pH ABG 7.385 (7.350-7.450)
[2020-08-04 14:47] LABS: Device NON-INVASIVE VENT; Modified Allen's Test Pass; Site Drawn RIGHT RADIAL
[2020-08-04 14:48] LABS: Non-Invasive Expiratory Pressure 6 CMH2O; Non-Invasive Inspiratory Pressure 12 CMH2O; Non-Invasive Vent Rate 12 /MIN
[2020-08-04] MEDS: REMDESIVIR 200 MG/NS 250 ML 200 MG/250 ML BAG 250 MG IVPB (16:10)
[2020-08-04 16:53] LABS: Alanine Aminotransferase 51 U/L (4-50)
[2020-08-04 17:01] LABS: Glucose Point of Care 326 (65-105)
[2020-08-04 17:28] LABS: SARS-CoV-2 RNA PCR Negative
--- NOTE | 2020-08-04 17:34 | PM.PNCARD ---
Progress Note: A&P Assessment and Plan (1) Suspected 2019-nCoV infection: Code(s): Z20.822 - Contact with and (suspected) exposure to COVID-19 Status: Acute Assessment and Plan: Suspected COVID pneumonia, progressive, requiring transfer to the ICU and BiPAP. (2) Acute respiratory failure with hypoxia: Code(s): J96.01 - Acute respiratory failure with hypoxia Status: Acute Assessment and Plan: As above. (3) SVT (supraventricular tachycardia): Code(s): I47.1 - Supraventricular tachycardia Status: Resolved Assessment and Plan: Admitted with SVT which converted with Adenocard, likely due to acute infection. No recurrence since admission. TSH was low, but total T3 was mildly low and free T4 was normal. No specific therapy recommended at this time, since I think the likelihood of recurrence is low. Adenocard 12 mg IVP if recurrence. Will follow on telemetry at a distance; please call if we can be of further assistance. (4) Elevated LDH: Code(s): R74.02 - Elevation of levels of lactic acid dehydrogenase [LDH] Status: Acute Assessment and Plan: Severely elevated LDH and ferritin, consistent with COVID infection. Subjective Date/time seen: 08/04/20 17:34 Mr. Inocente Rodriguez is a 55-year-old male whom we were asked to see at the request of the hospitalist for advice and opinion regarding his SVT, in consultation. 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 On admission he was so weak he could not stand up. He felt palpitations. When the ambulance arrived his O2 saturations were in the 70s to 80s and his heart rate was in the 160s to 170s. He was brought to the ER and was in SVT. He was given adenosine 6 mg followed by 12 mg and converted to sinus rhythm. He has maintained sinus rhythm overnight. He had a low grade temperature. His x-ray is concerning for pneumonia and is being treated for presumed COVID pneumonia even though his COVID screen was negative.. Interval history: Date of service 08/04/2020: The patient's respiratory status has declined and he is on BiPAP, currently being transferred for to the ICU in case he deteriorates and needs intubation. Dr. Flores does recommend starting starting IV Tocilizumab. Patient complained of some chest tightness earlier today transient. No further arrhythmias. Review of Systems Constitutional: Constitutional: Reports fatigue, Reports lethargy and Reports weakness Eyes: Eyes: Reports no additional eye complaints ENT: Denies nasal congestion Cardiovascular: Cardiovascular: Reports chest pain, Denies diaphoresis, Denies pedal edema, Denies lightheadedness and Denies palpitations Respiratory: Respiratory: Reports chest congestion, Reports cough, Denies hemoptysis, Reports dyspnea and Reports dyspnea on exertion Gastrointestinal: Gastrointestinal: Denies abdominal pain and Denies diarrhea Integumentary/Breasts: Skin/Breast: Denies rash Neurologic: Reports system reviewed and no additional complaints, except as documented and Denies confusion Psychiatric: Psychiatric: Reports no additional psychiatric complaints Exam Narrative: Exam Narrative: Tachypneic male on BiPAP, alert, cooperative, polite, in mild distress Const: General: in distress and uncomfortable HENMT: General nose exam: no epistaxis Mouth: Yes moist mucous membranes Eyes: EOM: EOMs intact bilaterally Neck: Neck: supple Resp: Effort & Inspection: abnormal respiratory effort Auscultation: clear to auscultation bilaterally Cardio: Rate: regular rate Rhythm: regular rhythm Heart sounds: no murmurs GI: Inspection: non-distended GI Palp: Yes Soft to palpation and No Tenderness to palpation present (G
--- NOTE | 2020-08-04 17:55 | PC.NURSE ---
This patient, Inocente Brink, was transferred to [ICU-8 ] on 08/04/20 at 1745. Personal belongings sent with patient. Report given to [Maryana ]. Appropriate documentation sent with patient.
--- NOTE | 2020-08-04 17:55 | PC.NURSE ---
Patient has been placed on a medical furlough from the [facility]. Copy of signed court order placed on chart. Patient signed a release of information to allow the officers of the [facility] to receive phone information regarding his current medical status and treatments. Per the [facility], a residence supervisor at the [facility] Department will call twice daily for updates. Medical decisions are to be made by the patient and, if he is unable to make decisions, his , Chaya Vallejo ([phone])has been named as next of kin by the patient. Current residence supervisor at the [facility] Office is Captain Armin Quezada, personal cell.
--- NOTE | 2020-08-04 18:00 | PC.NURSE ---
This patient, Inocente Brink, was admitted to Intensive Care Unit-8. Patient/family oriented to hospital policies and general routines including ID bracelet, bed and alarms, visiting hours, pain management, procedures, bathroom and other care routines, personal items, smoking policy, room service/diet, and visiting hours. Information on how to activate the Rapid Response Team has been discussed. Patient/Family are encouraged to report perceived risks to care and to ask questions if they do not understand what they are told or what they should do.
[2020-08-04 19:12] LABS: Glucose Point of Care 324 (65-105)
[2020-08-04] MEDS: SODIUM CHLORIDE NASAL GEL 14.1 GM 1 APPLIC NASAL (19:48)
[2020-08-04 23:12] LABS: Glucose Point of Care 276 (65-105)
[2020-08-04 23:14] LABS: Hematocrit 38.5 % (42.0-52.0); Hemoglobin 13.3 g/dL (14.0-18.0); Mean Corpuscular HGB Conc 34.5 g/dl (32-36); Mean Corpuscular Hemoglobin 29.2 pg (26-34); Mean Corpuscular Volume 84.6 fl (80-100); Mean Platelet Volume 9.9 fl (7.4-10.4); Platelet Count Result 257 k/mm3 (150-375); Red Blood Count 4.55 M/mm3 (4.6-6.20); Red Cell Distribution Width 12.6 % (11.5-14.5); White Blood Count 12.2 K/mm3 (4.5-10.0)
[2020-08-04 23:28] LABS: Alanine Aminotransferase 47 U/L (4-50); Aspartate Amino Transferase 96 U/L (17-59)
[2020-08-05] VITALS (24 sets, daily range): BP systolic 116–148; BP diastolic 62–91; PULSE 68–90; RESP 18–34; TEMP 36.5–36.8; O2SAT 88–96
[2020-08-05 03:57] LABS: Pneumococcal Antigen Urine Not Detected (Not Detected)
[2020-08-05 05:40] LABS: Basophils Percent Auto 0.1 % (0.2-1.2); Hematocrit 38.8 % (42.0-52.0); Hemoglobin 13.3 g/dL (14.0-18.0); Immature Granulocyte Absolute 0.09 K/mm3 (0.00-0.031); Immature Granulocyte Percent A 0.9 % (0-0.5); Lymphocytes Absolute Auto 1.08 K/mm3 (0.9-3.2); Lymphocytes Percent Auto 10.4 % (18.3-44.2); Mean Corpuscular HGB Conc 34.3 g/dl (32-36); Mean Corpuscular Hemoglobin 29.3 pg (26-34); Mean Corpuscular Volume 85.5 fl (80-100); Mean Platelet Volume 9.8 fl (7.4-10.4); Monocytes Absolute Auto 0.8 K/mm3 (0.1-0.6); Monocytes Percent Auto 8.1 % (2.6-8.5); Neutrophils Absolute Auto 8.4 K/mm3 (1.3-6.7); Neutrophils Percent Auto 80.5 % (45.5-73.1); Nucleated Red Blood Cells Perc 0.2 % (0.0-0.2); Platelet Count Result 255 k/mm3 (150-375); Red Blood Count 4.54 M/mm3 (4.6-6.20); Red Cell Distribution Width 12.6 % (11.5-14.5); White Blood Count 10.4 K/mm3 (4.5-10.0)
[2020-08-05 05:55] LABS: D Dimer 0.86 ug/mL (<0.48)
[2020-08-05 06:05] LABS: Alanine Aminotransferase 44 U/L (4-50); Albumin Level 3.4 g/dL (3.5-5.1); Alkaline Phosphatase 80 U/L (38-126); Anion Gap 0 mmol/L (8-16); Aspartate Amino Transferase 74 U/L (17-59); Bilirubin,Total 0.5 mg/dL (0.2-1.3); Blood Urea Nitrogen 21 mg/dL (9-20); CRP 5.7 mg/dL (<1.0); Calcium 8.3 mg/dL (8.4-10.2); Carbon Dioxide 34 mmol/L (22-30); Chloride 102 mmol/L (98-107); Estimated CRCL calculation 89 ml/min; Estimated Glomerular Filt Rate > 60; Glucose 179 mg/dL (75-110); Magnesium 2.4 mg/dL (1.6-2.3); Phosphorus 3.5 mg/dL (2.5-4.5); Potassium 4.2 mmol/L (3.4-5.0); Sodium 136 mmol/L (137-145)
[2020-08-05 06:20] LABS: Lactate Dehydrogenase 2837 U/L (313-618)
[2020-08-05 06:50] LABS: Base Excess ABG 2.8 mEq/l (+/-2.0); Carboxyhemoglobin 0.3 % THb (0-2.0); Fractional Inspired Oxygen 80 %; HCO3 ABG 26.4 mEq/l (22.0-26.0); Methemoglobin ABG 0.5 %THb (0-1.5); Oxygen Content ABG 17.8 %vol (16.0-22.0); Oxyhemoglobin 91.3 % THb (90.0-100.0); PCO2 ABG 37.1 mmHg (35.0-45.0); PO2 ABG 61.5 mmHg (80.0-100.0); PO2 FiO2 Ratio Arterial Blood 0.77 %; Reduced Hemoglobin 7.9 %THb (0-5.0); Total Hemoglobin 13.9 g/dL (12.0-18.0)
[2020-08-05 06:51] LABS: Device NON-INVASIVE VENT; Modified Allen's Test Pass; Site Drawn RIGHT RADIAL
[2020-08-05 06:52] LABS: Non-Invasive Expiratory Pressure 6 CMH2O; Non-Invasive Inspiratory Pressure 12 CMH2O; Non-Invasive Vent Rate 12 /MIN
[2020-08-05 07:34] LABS: Ferritin > 2000.00 ng/mL (11.1-264)
--- NOTE | 2020-08-05 08:17 | PC.NURSE ---
attempted to call Patient's Chaya Champagne at [phone] and voicemail was left.
[2020-08-05] MEDS: ENOXAPARIN 40 MG/0.4 ML SYRINGE SUB-Q ×2 (08:26→20:04)
[2020-08-05] MEDS: amLODIPine BESYLATE 5 MG TABLET 10 MG PO (08:26)
[2020-08-05] MEDS: PANTOPRAZOLE SODIUM IV 40 MG VIAL IV PUSH (08:27)
[2020-08-05] MEDS: MIRTAZAPINE 30 MG TABLET PO (08:27)
[2020-08-05] MEDS: SERTRALINE HCL 50 MG TABLET PO (08:27)
[2020-08-05] MEDS: TAMSULOSIN HCL 0.4 MG CAPSULE PO (08:27)
[2020-08-05 08:42] LABS: Glucose Point of Care 166 (65-105)
[2020-08-05] MEDS: INSULIN ASPART (*BKC) 100 UNITS/ML SUB-Q ×2 (12:31→17:45)
[2020-08-05 12:37] LABS: Glucose Point of Care 265 (65-105)
--- NOTE | 2020-08-05 14:03 | WPDINTPN ---
Progress Note: A&P Assessment and Plan (1) Acute respiratory failure with hypoxia: Code(s): J96.01 - Acute respiratory failure with hypoxia Status: Acute Assessment and Plan: Acute respiratory failure requiring BiPAP 06/20, 100% FiO2 -likely related to COVID-19 pneumonia as a lot of people tested positive COVID-19 in the presence -SARS-CoV-2 PCR on 08/02 was negative, repeat SARS-CoV-2 PCR on 08/04/2020 is also negative -continue BiPAP for now, will transfer patient to ICU for closer monitoring -repeat chest x-ray shows stable diffuse lung disease consistent with pulmonary versus pneumonia, emphysema - ABGs reviewed -discussed with patient that if his condition worsens he will require mechanical ventilation to which he agrees (2) Suspected 2019-nCoV infection: Code(s): Z20.822 - Contact with and (suspected) exposure to COVID-19 Status: Acute Assessment and Plan: SARS-CoV-2 PCR PCR on 08/02 is negative, repeat SARS-CoV-2 PCR on 08/04 is also negative -discussed with lab and infectious disease, recommended a nasal swab -patient has symptoms of COVID-19 along with elevated LDH, ferritin, D-dimer, CRP -continue droplet, airborne and contact isolation/precautions -continue dexamethasone which was initiated on 08/03/2020 -infectious disease consulted and recommended that patient is a candidate for Tocilizumab from EMPACTA trial, has been ordered before giving Actemra -continue Remdesivir - convalescent plasma cannot be transfused as patient does not have a documented positive SARS-CoV-2 PCR -will monitor inflammatory markers (3) SVT (supraventricular tachycardia): Code(s): I47.1 - Supraventricular tachycardia Status: Resolved Assessment and Plan: In the ED on admission patient had an episode of SVT which resolved with adenosine IV x1 -cardiology following the patient -SVT likely secondary to respiratory distress, no further episodes (4) Acute renal failure: Qualifiers: Acute renal failure type: unspecified Qualified Code(s): N17.9 - Acute kidney failure, unspecified Code(s): N17.9 - Acute kidney failure, unspecified Status: Acute Assessment and Plan: Acute kidney injury on admission with creatinine of 1.7, patient given IV fluids, urine output has been adequate, creatinine down to normal on 08/04/2020 -continue monitor urine output, electrolytes and renal function (5) Hyperglycemia: Code(s): R73.9 - Hyperglycemia, unspecified Status: Acute Assessment and Plan: Hyperglycemia likely related to dexamethasone -will increase high-dose sliding scale -may require long-acting insulin (6) DVT prophylaxis: Code(s): Z29.9 - Encounter for prophylactic measures, unspecified Status: Acute Assessment and Plan: Lovenox to 40 mg subcu q.12 hours Additional Plan Discussed with patient updated with his condition and plan of care. I answered all questions. He is aware that if his condition worsens he may require mechanical ventilation to which he agrees. He is aware that 2 of his COVID-19 tests are negative and we will be resorbing him given he is a high-risk patient Code status: Full code Critical care time spent: 34 minutes Due to a high probability of clinically significant, life threatening deterioration, the patient required my highest level of preparedness to intervene emergently and I personally spent this critical care time directly and personally managing the patient. This critical care time included obtaining a history; examining the patient; pulse oximetry; ordering and review of studies; arranging urgent treatment with development of a management plan; evaluation of patient's response to treatment; frequent reassessment; and discussions with other providers. It was exclusive of separately billable procedures and treating other patients and teaching time. Please see Assessment and Plan section and the rest of the note for hemanth
--- NOTE | 2020-08-05 15:26 | WPDINFPN2 ---
Progress Note: A&P Assessment and Plan (1) Suspected 2019-nCoV infection: Code(s): Z20.822 - Contact with and (suspected) exposure to COVID-19 Status: Acute Assessment and Plan: 1. Dyspnea, probably due to novel coronavirus infection with pneumonia, though no + testing as yet 2. Leg weakness and numbness bilateral finger tips 1-2-3 REC Remedisivir and dexamethasone ongoing. Rapid viral culture for other pathogens, also get Legionella Ag. Ctx and azithro for alternative bacterial pathogens. Based on current clinical trials (including BMJ just yesterday) and the fact that he has unconfirmed CoVid 19 infection, I would not give tocilizumab. Subjective Date/time seen: 08/05/20 15:26 Objective Data Vital Signs Vital Signs: Vital Signs - 24 hr 08/04/20 16:00 08/04/20 17:40 08/04/20 17:50 Temperature 36.2 C L Pulse Rate 85 78 Respiratory Rate 32 H 32 H 26 H Blood Pressure 151/75 H Pulse Oximetry 99 93 08/04/20 18:00 08/04/20 18:04 08/04/20 18:55 Temperature 36.7 C Pulse Rate 85 76 85 Respiratory Rate 28 H 26 H Blood Pressure 130/76 Pulse Oximetry 99 08/04/20 20:00 08/04/20 22:00 08/04/20 23:14 Temperature 36.8 C Pulse Rate 86 77 73 Respiratory Rate 28 H 29 H 27 H Blood Pressure 141/78 H 136/72 Pulse Oximetry 95 96 96 08/05/20 00:00 08/05/20 02:00 08/05/20 02:57 Temperature 36.5 C Pulse Rate 77 68 72 Respiratory Rate 28 H 26 H 24 H Blood Pressure 124/78 116/62 Pulse Oximetry 92 92 95 08/05/20 02:59 08/05/20 04:00 08/05/20 06:00 Temperature 36.6 C Pulse Rate 73 73 80 Respiratory Rate 27 H 31 H 34 H Blood Pressure 131/77 133/76 Pulse Oximetry 94 95 08/05/20 06:23 08/05/20 08:00 08/05/20 08:30 Temperature 36.6 C Pulse Rate 76 76 80 Respiratory Rate 28 H 26 H 32 H Blood Pressure 134/73 Pulse Oximetry 95 95 92 08/05/20 08:40 08/05/20 09:51 08/05/20 10:00 Temperature Pulse Rate 83 75 90 Respiratory Rate 32 H 18 Blood Pressure 141/84 H Pulse Oximetry 88 L 08/05/20 11:25 08/05/20 12:00 08/05/20 14:00 Temperature 36.6 C Pulse Rate 78 83 84 Respiratory Rate 28 H 28 H 32 H Blood Pressure 121/68 138/73 Pulse Oximetry 94 95 95 Intake/Output Intake/Output: Intake & Output 08/02/20 08/03/20 08/04/20 08/05/20 23:59 23:59 23:59 23:59 Intake Total 1300 3254 1330 520 Output Total 6190 1340 1150 Balance 3027 1129 -10 -630 Meds/Results Medications: Active Medications Generic Name Dose Route Start Last Admin Trade Name Freq PRN Reason Stop Dose Admin Acetaminophen 650 mg 08/03/20 00:41 Acetaminophen 325 Mg Tablet PO Q4H PRN Mild Pain (1-3) or Fever Amlodipine Besylate 10 mg 08/03/20 09:00 08/05/20 08:26 Amlodipine Besylate 5 Mg Tablet PO 10 mg DAILY BAYLEE Administration Dexamethasone Sodium Phosphate 6 mg 08/03/20 08:00 08/05/20 08:28 Dexamethasone Sod Phos Inj 10 Mg/Ml 1 Ml Vial IV PUSH 6 mg DAILY@0800 BAYLEE Administration Dextrose 12.5 gm 08/03/20 17:54 Dextrose 50% 25 Gm/50 Ml Syringe IV PUSH PRN PRN Hypoglycemia Protocol Enoxaparin Sodium 40 mg 08/04/20 21:00 08/05/20 08:26 Enoxaparin 40 Mg/0.4 Ml Syringe SUB-Q 40 mg Q12HR BAYLEE Administration Glucagon 1 mg 08/03/20 17:54 Glucagon For Inj 1 Mg Vial IM PRN PRN Hypoglycemia Protocol Glucose 15 gm 08/03/20 17:54 Glucose Oral Gel 15 Gm Of Glucse In 37.5 Gm Tube PO PRN PRN Hypoglycemia Protocol Guaifenesin/Dextromethorphan 5 ml 08/03/20 04:53 Guaifenesin/Dextromethorphan 10 Ml Udc PO Q4H PRN Cough Ceftriaxone Sodium/Dextrose 1 gm in 50 mls @ 100 mls/hr 08/03/20 18:00 08/04/20 19:30 Rocephin 1 Gm/D5w 50 Ml IVPB Infused Q24H BAYLEE Infusion Azithromycin 500 mg in 250 mls @ 250 mls/hr 08/03/20 21:00 08/04/20 20:50 Zithromax IVPB Infused Q24H BAYLEE Infusion Dextrose 1,000 mls @ 100 mls/hr 08/03/20 17:54 Dextrose 5% 1,000
[2020-08-05 17:25] LABS: Glucose Point of Care 346 (65-105)
[2020-08-05] MEDS: SODIUM CHLORIDE NASAL GEL 14.1 GM 1 APPLIC NASAL (20:04)
--- NOTE | 2020-08-05 20:26 | CONS_ITS ---
DATE OF CONSULTATION: 08/05/2020 REASON FOR CONSULTATION: Coronavirus infection. HISTORY OF PRESENT ILLNESS: The patient is a 55-year-old male, who has been most recently in the [facility]. He began feeling ill about 7 days prior to admission with dyspnea and cough. He was started on ceftriaxone and azithromycin along with dexamethasone. Remdesivir was added yesterday and consultation requested. The patient denies previous Coronavirus testing. He also had some numbness in his fingertips 1, 2, and 3 bilaterally, nonproductive cough, subjective fever, and body aches. He was found to have a lung infiltrates and hypoxemia on admission and was transferred to Intensive Care Unit due to high O2 need. Last evening, he also developed SVT. PRESENT MEDICATIONS: List reviewed. No other immunosuppressants. HABITS: No tobacco. No alcohol. ALLERGIES: NO KNOWN DRUG ALLERGIES. PAST MEDICAL HISTORY: In addition to the above, hypertension and hyperlipidemia. REVIEW OF SYSTEMS: A 14-point review otherwise negative, though complete review is difficult due to his PPV. FAMILY HISTORY: Not pertinent to his present illness. 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 . Lives locally otherwise. PHYSICAL EXAMINATION: GENERAL: Middle-aged male, who appears in moderate respiratory distress, his actual age, well-nourished. VITAL SIGNS: His T-max on admission was 37.6, has since been afebrile, pulse 84, respirations 24 up to 32, 95% percent saturation, and blood pressure 138/73. SKIN: Warm and dry. No rashes noted. He has no cervical adenopathy. EENT: Conjunctivae are clear. Pupils equal, round. Visualization of the oral mucosa difficult due to his mask, but no obvious lesions. NECK: There is no thyromegaly, masses, stridor, meningismus. LUNGS: Coarse breath sounds, vesicular, clear to percussion. CARDIAC: Distant S1, S2. Regular rate and rhythm. No murmurs. No heaves. ABDOMEN: Firm, nontender. No masses. No organomegaly. EXTREMITIES: Well perfused. 2+ pulses. No clubbing, cyanosis, edema. LABORATORY DATA: Two Coronavirus assays are nonreactive, but apparently both were obtained from the pharynx. Urine pneumococcal antigen is nonreactive. QuantiFERON is in process. White count was 7.5 on arrival, now 10.4, hemoglobin 13.3, platelets are 255. His D-dimer is mildly high. His blood gases 7.47, 62 PO2 and pCO2 is 37, 93% saturation on the noted oxygenation supplement. He has mild hyponatremia. BUN is 21, creatinine 1.1. His A1c 6.8%. Ferritin is over 2000. AST 74, ALT normal, LDH 2036, albumin 3.4. Blood cultures, no growth so far. RADIOLOGY: Chest x-ray with bilateral lung opacities in lower to mid lott with suspected bullous disease medial right lung. ASSESSMENT: 1. Dyspnea, cough, lung infiltrates, suspect due to Coronavirus infection, particularly in light of his loss of taste and smell. However, he has had 2 negative assays. Other forms of viral pneumonia are also under consideration as well as bacterial processes. Noninfectious causes are also under consideration. 2. Respiratory failure. 3. Numbness of his fingertips, uncertain etiology. RECOMMENDATIONS: 1. Further Coronavirus testing ordered. Also, add a viral culture of the sputum and Legionella antigen. 2. Continue ceftriaxone and azithromycin for the moment. 3. I do not predict benefit from tocilizumab. 4. Continue remdesivir for potential benefit as well as the dexamethasone and oxygenation. Thank you very much for asking me to see him. MCKINLEY BLACKWOOD M.D. ANTIQUE JEWELRY REPAIRER ANTIQUE JEWELRY REPAIRER D I MT: [place]
[2020-08-05] MEDS: REMDESIVIR 100 MG/NS 250 ML 100 MG/250 ML BAG 250 MG IVPB (21:20)
[2020-08-05 22:13] LABS: Glucose Point of Care 291 (65-105)
[2020-08-05 23:38] LABS: Glucose Point of Care 221 (65-105)
[2020-08-06] VITALS (26 sets, daily range): BP systolic 129–171; BP diastolic 72–91; PULSE 69–101; RESP 18–32; TEMP 36.3–36.7; O2SAT 90–97
[2020-08-06 05:44] LABS: Hematocrit 37.9 % (42.0-52.0); Mean Corpuscular HGB Conc 34.3 g/dl (32-36); Mean Corpuscular Hemoglobin 29.3 pg (26-34); Mean Corpuscular Volume 85.6 fl (80-100); Mean Platelet Volume 9.7 fl (7.4-10.4); Platelet Count Result 271 k/mm3 (150-375); Red Blood Count 4.43 M/mm3 (4.6-6.20); Red Cell Distribution Width 12.8 % (11.5-14.5); White Blood Count 12.9 K/mm3 (4.5-10.0)
[2020-08-06 05:54] LABS: Alanine Aminotransferase 38 U/L (4-50)
[2020-08-06 06:04] LABS: Anion Gap 1 mmol/L (8-16); Blood Urea Nitrogen 21 mg/dL (9-20); Calcium 8.3 mg/dL (8.4-10.2); Carbon Dioxide 32 mmol/L (22-30); Chloride 104 mmol/L (98-107); Estimated CRCL calculation 108 ml/min; Estimated Glomerular Filt Rate > 60; Glucose 165 mg/dL (75-110); Potassium 4.1 mmol/L (3.4-5.0); Sodium 137 mmol/L (137-145)
[2020-08-06 06:47] LABS: SARS-CoV-2 RNA PCR Negative
[2020-08-06] MEDS: amLODIPine BESYLATE 5 MG TABLET 10 MG PO (09:21)
[2020-08-06] MEDS: ENOXAPARIN 40 MG/0.4 ML SYRINGE SUB-Q ×2 (09:21→20:11)
[2020-08-06] MEDS: MIRTAZAPINE 30 MG TABLET PO (09:22)
[2020-08-06] MEDS: PANTOPRAZOLE SODIUM IV 40 MG VIAL IV PUSH (09:22)
[2020-08-06] MEDS: SERTRALINE HCL 50 MG TABLET PO (09:22)
[2020-08-06 09:37] LABS: Glucose Point of Care 132 (65-105)
[2020-08-06 11:38] LABS: Glucose Point of Care 272 (65-105)
[2020-08-06] MEDS: INSULIN ASPART (*BKC) 100 UNITS/ML SUB-Q ×2 (11:38→16:23)
--- NOTE | 2020-08-06 13:48 | WPDINTPN ---
Progress Note: A&P Assessment and Plan (1) Acute respiratory failure with hypoxia: Code(s): J96.01 - Acute respiratory failure with hypoxia Status: Acute Assessment and Plan: Acute respiratory failure requiring BiPAP 06/20, 100% FiO2 -likely related to COVID-19 pneumonia as a lot of people tested positive COVID-19 in the presence -SARS-CoV-2 PCR on 08/02 was negative, repeat SARS-CoV-2 PCR on 08/04/2020 is also negative, SARS-CoV-2 PCR on 08/05/2020 is negative for the 3rd time -continue BiPAP with intermittently switching to high-flow therapy with non-rebreather. -repeat chest x-ray shows stable diffuse lung disease consistent with pulmonary versus pneumonia, emphysema - ABGs reviewed -discussed with patient that if his condition worsens he will require mechanical ventilation to which he agrees (2) Suspected 2019-nCoV infection: Code(s): Z20.822 - Contact with and (suspected) exposure to COVID-19 Status: Acute Assessment and Plan: SARS-CoV-2 PCR PCR on 08/02 is negative, repeat SARS-CoV-2 PCR on 08/04 is also negative, 3rd SARS-CoV-2 PCR is negative on 08/05 -Will discuss with infectious disease -patient has symptoms of COVID-19 along with elevated LDH, ferritin, D-dimer, CRP -continue droplet, airborne and contact isolation/precautions -continue dexamethasone which was initiated on 08/03/2020 --continue Remdesivir - convalescent plasma cannot be transfused as patient does not have a documented positive SARS-CoV-2 PCR -will monitor inflammatory markers (3) SVT (supraventricular tachycardia): Code(s): I47.1 - Supraventricular tachycardia Status: Resolved Assessment and Plan: In the ED on admission patient had an episode of SVT which resolved with adenosine IV x1 -cardiology following the patient -SVT likely secondary to respiratory distress, no further episodes (4) Acute renal failure: Qualifiers: Acute renal failure type: unspecified Qualified Code(s): N17.9 - Acute kidney failure, unspecified Code(s): N17.9 - Acute kidney failure, unspecified Status: Acute Assessment and Plan: Acute kidney injury on admission with creatinine of 1.7, patient given IV fluids, urine output has been adequate, creatinine down to normal on 08/04/2020 -continue monitor urine output, electrolytes and renal function (5) Hyperglycemia: Code(s): R73.9 - Hyperglycemia, unspecified Status: Acute Assessment and Plan: Hyperglycemia likely related to dexamethasone -will increase high-dose sliding scale -may require long-acting insulin (6) DVT prophylaxis: Code(s): Z29.9 - Encounter for prophylactic measures, unspecified Status: Acute Assessment and Plan: Lovenox to 40 mg subcu q.12 hours Additional Plan Discussed with patient updated with his condition and plan of care. I answered all questions. He is aware that if his condition worsens he may require mechanical ventilation to which he agrees. He is aware that 3 of his COVID-19 tests are negative Code status: Full code Critical care time spent: 32 minutes Due to a high probability of clinically significant, life threatening deterioration, the patient required my highest level of preparedness to intervene emergently and I personally spent this critical care time directly and personally managing the patient. This critical care time included obtaining a history; examining the patient; pulse oximetry; ordering and review of studies; arranging urgent treatment with development of a management plan; evaluation of patient's response to treatment; frequent reassessment; and discussions with other providers. It was exclusive of separately billable procedures and treating other patients and teaching time. Please see Assessment and Plan section and the rest of the note for further information on patient assessment and treatment Subjective Date/time seen: 08/06/20 13:48 Interval history: Reason for
--- NOTE | 2020-08-06 14:25 | WPDINFPN2 ---
Progress Note: A&P Assessment and Plan (1) Suspected 2019-nCoV infection: Code(s): Z20.822 - Contact with and (suspected) exposure to COVID-19 Status: Acute Assessment and Plan: 1. Dyspnea, probably due to novel coronavirus infection with pneumonia, though no + testing (3 samples) 2. Leg weakness and numbness bilateral finger tips 1-2-3 REC Remedisivir through 08/08 dose, and dexamethasone ongoing. Micro for other pathogens in process. Ctx and azithro #4 for alternative bacterial pathogens. Not in need of new studies for now Subjective Date/time seen: 08/06/20 14:25 Interval history: feels same, on PPV Exam Narrative: Exam Narrative: afebrile Const: General: in distress Neck: Neck: supple Resp: Auscultation: no rales, no rhonchi, no wheezes and diminished lung sounds Cardio: Rate: regular rate Rhythm: regular rhythm Heart sounds: no gallops and no murmurs GI: Inspection: non-distended GI Palp: Yes Soft to palpation and No Tenderness to palpation present (GI) Skin: General skin exam: no rashes or lesions noted Objective Data Vital Signs Vital Signs: Vital Signs - 24 hr 08/05/20 14:35 08/05/20 14:45 08/05/20 16:00 Temperature 36.8 C Pulse Rate 78 80 87 Respiratory Rate 28 H 28 H 26 H Blood Pressure 141/80 H Pulse Oximetry 92 95 08/05/20 17:35 08/05/20 18:00 08/05/20 20:00 Temperature 36.6 C Pulse Rate 83 82 79 Respiratory Rate 26 H 28 H 29 H Blood Pressure 139/78 142/83 H Pulse Oximetry 94 96 96 08/05/20 20:45 08/05/20 22:00 08/05/20 23:35 Temperature Pulse Rate 81 85 79 Respiratory Rate 24 H 28 H 28 H Blood Pressure 148/91 H Pulse Oximetry 92 92 93 08/06/20 00:00 08/06/20 02:00 08/06/20 02:25 Temperature 36.3 C L Pulse Rate 70 69 73 Respiratory Rate 24 H 32 H 28 H Blood Pressure 135/83 129/78 Pulse Oximetry 94 92 08/06/20 02:26 08/06/20 04:00 08/06/20 06:00 Temperature Pulse Rate 73 75 75 Respiratory Rate 28 H 28 H 31 H Blood Pressure 143/78 H 137/72 Pulse Oximetry 93 97 94 08/06/20 08:00 08/06/20 08:38 08/06/20 08:40 Temperature 36.6 C Pulse Rate 79 77 84 Respiratory Rate 24 H 24 H 28 H Blood Pressure 137/77 Pulse Oximetry 90 93 08/06/20 08:49 08/06/20 09:30 08/06/20 10:00 Temperature Pulse Rate 78 87 85 Respiratory Rate 28 H 18 20 Blood Pressure 145/76 H Pulse Oximetry 95 95 08/06/20 12:00 08/06/20 12:55 08/06/20 13:00 Temperature 36.7 C Pulse Rate 86 85 84 Respiratory Rate 24 H 29 H 25 H Blood Pressure 148/84 H Pulse Oximetry 95 93 95 08/06/20 14:21 Temperature Pulse Rate 81 Respiratory Rate 32 H Blood Pressure Pulse Oximetry 94 Intake/Output Intake/Output: Intake & Output 08/03/20 08/04/20 08/05/20 08/06/20 23:59 23:59 23:59 23:59 Intake Total 3254 1330 1610 200 Output Total 2125 1340 1950 1450 Balance 1129 -10 -340 -1250 Meds/Results Medications: Active Medications Generic Name Dose Route Start Last Admin Trade Name Freq PRN Reason Stop Dose Admin Acetaminophen 650 mg 08/03/20 00:41 Acetaminophen 325 Mg Tablet PO Q4H PRN Mild Pain (1-3) or Fever Amlodipine Besylate 10 mg 08/03/20 09:00 08/06/20 09:21 Amlodipine Besylate 5 Mg Tablet PO 10 mg DAILY BAYLEE Administration Dexamethasone Sodium Phosphate 6 mg 08/03/20 08:00 08/06/20 09:20 Dexamethasone Sod Phos Inj 10 Mg/Ml 1 Ml Vial IV PUSH 6 mg DAILY@0800 BAYLEE Administration Dextrose 12.5 gm 08/03/20 17:54 Dextrose 50% 25 Gm/50 Ml Syringe IV PUSH PRN PRN Hypoglycemia Protocol Enoxaparin Sodium 40 mg 08/04/20 21:00 08/06/20 09:21 Enoxaparin 40 Mg/0.4 Ml Syringe SUB-Q 40 mg Q12HR BAYLEE Administration Glucagon 1 mg 08/03/20 17:54 Glucagon For Inj 1 Mg Vial IM PRN PRN Hypoglycemia Protocol Glucose 15 gm 08/03/20 17:54 Glucose Oral Gel 15 Gm Of Glucse In 37.5 Gm Tube PO PRN PRN Hypoglycemia Protocol Guaifene
[2020-08-06 16:19] LABS: Glucose Point of Care 247 (65-105)
--- NOTE | 2020-08-06 18:35 | PC.NURSE ---
1835- PT TOMA ZENDEJAS CALLED TO GET UPDATE ON PT. ALL QUESTIONS ANSWERED. PHONE NUMBER [phone]. TOMA UPDATED AND STATED SHE WILL CALL DAILY.
[2020-08-06] MEDS: SALINE 0.65% NAS SOLN 44 ML BTL 1 SPRAY NASAL (20:11)
[2020-08-06] MEDS: SODIUM CHLORIDE NASAL GEL 14.1 GM 1 APPLIC NASAL (20:12)
[2020-08-06 20:39] LABS: Base Excess ABG 1.7 mEq/l (+/-2.0); Carboxyhemoglobin 0.3 % THb (0-2.0); Fractional Inspired Oxygen 100 %; HCO3 ABG 25.3 mEq/l (22.0-26.0); Methemoglobin ABG 0.6 %THb (0-1.5); Oxygen Content ABG 18.1 %vol (16.0-22.0); PCO2 ABG 36.6 mmHg (35.0-45.0); PO2 ABG 56.4 mmHg (80.0-100.0); PO2 FiO2 Ratio Arterial Blood 0.56 %; Reduced Hemoglobin 10.1 %THb (0-5.0); Total Hemoglobin 14.5 g/dL (12.0-18.0); pH ABG 7.458 (7.350-7.450)
[2020-08-06 20:40] LABS: Device HIGH FLOW THERAPY; Site Drawn RIGHT BRACHIAL
--- NOTE | 2020-08-06 21:30 | PC.NURSE ---
This patient, Inocente Brink, was transferred to [[id number] ] on 08/06/20 at 2147. Personal belongings sent with patient. Report given to [ Jennifer SILVA]. Appropriate documentation sent with patient.
[2020-08-06 22:52] LABS: Glucose Point of Care 318 (65-105)
[2020-08-06] MEDS: REMDESIVIR 100 MG/NS 250 ML 100 MG/250 ML BAG 250 MG IVPB (23:40)
[2020-08-07] VITALS (24 sets, daily range): BP systolic 127–166; BP diastolic 72–89; PULSE 73–98; RESP 26–44; TEMP 36.1–36.9; O2SAT 88–99
[2020-08-07 05:28] LABS: Hematocrit 40.2 % (42.0-52.0); Hemoglobin 13.7 g/dL (14.0-18.0); Mean Corpuscular HGB Conc 34.1 g/dl (32-36); Mean Corpuscular Hemoglobin 29.1 pg (26-34); Mean Corpuscular Volume 85.5 fl (80-100); Platelet Count Result 319 k/mm3 (150-375); Red Cell Distribution Width 12.6 % (11.5-14.5); White Blood Count 14.2 K/mm3 (4.5-10.0)
[2020-08-07 05:45] LABS: Alanine Aminotransferase 37 U/L (4-50); Albumin Level 3.3 g/dL (3.5-5.1); Alkaline Phosphatase 103 U/L (38-126); Anion Gap 3 mmol/L (8-16); Aspartate Amino Transferase 47 U/L (17-59); Bilirubin,Total 0.5 mg/dL (0.2-1.3); Blood Urea Nitrogen 20 mg/dL (9-20); Calcium 8.5 mg/dL (8.4-10.2); Carbon Dioxide 29 mmol/L (22-30); Chloride 103 mmol/L (98-107); Estimated CRCL calculation 95 ml/min; Estimated Glomerular Filt Rate > 60; Glucose 158 mg/dL (75-110); Magnesium 2.1 mg/dL (1.6-2.3); Phosphorus 3.3 mg/dL (2.5-4.5); Potassium 4.1 mmol/L (3.4-5.0); Sodium 135 mmol/L (137-145)
[2020-08-07 05:56] LABS: D Dimer 3.26 ug/mL (<0.48)
[2020-08-07 08:35] LABS: Glucose Point of Care 117 (65-105)
[2020-08-07] MEDS: PANTOPRAZOLE SODIUM IV 40 MG VIAL IV PUSH (09:12)
[2020-08-07] MEDS: ENOXAPARIN 40 MG/0.4 ML SYRINGE SUB-Q ×2 (09:13→20:54)
[2020-08-07] MEDS: SERTRALINE HCL 50 MG TABLET PO (09:14)
[2020-08-07] MEDS: amLODIPine BESYLATE 5 MG TABLET 10 MG PO (09:14)
[2020-08-07] MEDS: MIRTAZAPINE 30 MG TABLET PO (09:14)
[2020-08-07 09:44] LABS: HIV 1/2 Ab P24 Ag Result Negative (Negative)
[2020-08-07 09:46] LABS: CRP 6.7 mg/dL (<1.0)
[2020-08-07 09:58] LABS: Lactate Dehydrogenase 2685 U/L (313-618)
[2020-08-07 12:54] LABS: Glucose Point of Care 218 (65-105)
[2020-08-07] MEDS: INSULIN ASPART (*BKC) 100 UNITS/ML SUB-Q ×2 (14:42→18:44)
[2020-08-07 17:36] LABS: Glucose Point of Care 231 (65-105)
--- NOTE | 2020-08-07 17:42 | PM.IMPN ---
Progress Note: A&P Assessment and Plan (1) Elevated LDH: Code(s): R74.02 - Elevation of levels of lactic acid dehydrogenase [LDH] Status: Acute Assessment and Plan: Likely secondary to viral infection. (2) HTN (hypertension): Qualifiers: Hypertension type: unspecified Qualified Code(s): I10 - Essential (primary) hypertension Code(s): I10 - Essential (primary) hypertension Status: Chronic Assessment and Plan: Stable Continue to monitor (3) Abnormal glucose: Code(s): R73.09 - Other abnormal glucose Status: Acute Assessment and Plan: Likely secondary to steroids ISS as needed (4) Acute renal failure: Qualifiers: Acute renal failure type: unspecified Qualified Code(s): N17.9 - Acute kidney failure, unspecified Code(s): N17.9 - Acute kidney failure, unspecified Status: Acute Assessment and Plan: Bun/Cr now at normal levels Continue to monitor (5) Acute respiratory failure with hypoxia: Code(s): J96.01 - Acute respiratory failure with hypoxia Status: Acute Assessment and Plan: Currently using HFNC and BiPAP Continuous BiPAP at night time Likely secondary to Covid pneumonia. (6) SVT (supraventricular tachycardia): Code(s): I47.1 - Supraventricular tachycardia Status: Resolved Assessment and Plan: No new episodes On Telemetry bed. (7) Pneumonia: Qualifiers: Laterality: bilateral Lung location: unspecified part of lung Pneumonia type: due to unspecified organism Qualified Code(s): J18.9 - Pneumonia, unspecified organism Code(s): J18.9 - Pneumonia, unspecified organism Status: Acute Assessment and Plan: On Remdesivir Supprotive care Subjective Date/time seen: 08/07/20 17:42 States that he feels fine Review of Systems Review of Systems: ROS unobtainable: Yes unobtainable due to medical condition (Patient is on BiPAP) Exam Narrative: Exam Narrative: Patient is lying in bed, BiPAP is on. Const: General: alert, awake, Physically active and acute distress mild Nutritional Appearance: average body habitus Orientation/consciousness: patient oriented x3 HENMT: Head: normal to inspection and normocephalic General nose exam: Normal external nose present Face and sinus: normal facial exam Eyes: Pupils: Equal, round and reactive pupils present EOM: EOMs intact bilaterally Neck: Neck: no lymphadenopathy, supple and no JVD Resp: Auscultation: diminished lung sounds Cardio: Jugular venous distension: no JVD Rate: regular rate Rhythm: regular rhythm GI: GI Palp: Yes Soft to palpation and Yes No hepatosplenomegaly present Skin: Lesions: no lesions Rashes: no rashes Wounds: no wounds Neuro: General: patient oriented x3 and CN's II-XI intact bilaterally Cranial nerves: Yes CN's II-XII intact bilaterally and Yes Equal, round and reactive pupils present Cognition (Neuro): normal cognition Speech: normal speech Motor exam (neuro): 5/5 motor strength present throughout Extrem: General: no pedal edema Objective Data Vital Signs Vital Signs: Vital Signs - 24 hr 08/06/20 18:00 08/06/20 20:00 08/06/20 20:23 Temperature 97.4 F L Pulse Rate 85 90 101 H Respiratory Rate 29 H 29 H 26 H Blood Pressure 141/82 H 141/76 H Pulse Oximetry 92 91 08/06/20 20:33 08/06/20 20:42 08/06/20 22:00 Temperature Pulse Rate 92 92 77 Respiratory Rate 20 24 H Blood Pressure Pulse Oximetry 91 08/07/20 00:00 08/07/20 01:41 08/07/20 02:00 Temperature 96.9 F L Pulse Rate 86 79 73 Respiratory Rate 26 H 30 H Blood Pressure 140/89 Pulse Oximetry 96 99 08/07/20 04:00 08/07/20 06:00 08/07/20 07:34 Temperature 97 F L Pulse Rate 77 76 79 Respiratory Rate 37 H 34 H Blood Pressure 127/75 Pulse Oximetry 97 96 08/07/20 07:40 08/07/20 08:00 08/07/20 10:00 Temperature 98.2 F Pulse Rate 80 90 84 Respiratory Rate
[2020-08-07 20:25] LABS: Glucose Point of Care 186 (65-105)
[2020-08-07] MEDS: SODIUM CHLORIDE NASAL GEL 14.1 GM 1 APPLIC NASAL (20:55)
[2020-08-07] MEDS: REMDESIVIR 100 MG/NS 250 ML 100 MG/250 ML BAG 250 MG IVPB (22:26)
[2020-08-07] MEDS: CENTRAL LINE FLUSH 10 ML IV PUSH (23:22)
[2020-08-08] VITALS (35 sets, daily range): BP systolic 95–146; BP diastolic 74–91; PULSE 82–126; RESP 24–56; TEMP 36.1–37.1; O2SAT 89–100
[2020-08-08 04:37] LABS: Legionella pneumophila Ag Ur Not Detected (Not Detected)
[2020-08-08 05:19] LABS: Hemoglobin 13.9 g/dL (14.0-18.0); Mean Corpuscular HGB Conc 33.9 g/dl (32-36); Mean Corpuscular Hemoglobin 28.8 pg (26-34); Mean Corpuscular Volume 84.9 fl (80-100); Mean Platelet Volume 9.8 fl (7.4-10.4); Platelet Count Result 235 k/mm3 (150-375); Red Blood Count 4.83 M/mm3 (4.6-6.20); Red Cell Distribution Width 12.4 % (11.5-14.5); White Blood Count 14.9 K/mm3 (4.5-10.0)
[2020-08-08 05:43] LABS: Alanine Aminotransferase 46 U/L (4-50); Albumin Level 3.3 g/dL (3.5-5.1); Alkaline Phosphatase 121 U/L (38-126); Anion Gap 7 mmol/L (8-16); Aspartate Amino Transferase 62 U/L (17-59); Bilirubin,Total 0.6 mg/dL (0.2-1.3); Blood Urea Nitrogen 22 mg/dL (9-20); Calcium 8.7 mg/dL (8.4-10.2); Carbon Dioxide 28 mmol/L (22-30); Chloride 101 mmol/L (98-107); Estimated CRCL calculation 86 ml/min; Estimated Glomerular Filt Rate > 60; Glucose 131 mg/dL (75-110); Phosphorus 3.7 mg/dL (2.5-4.5); Sodium 136 mmol/L (137-145)
[2020-08-08] MEDS: CENTRAL LINE FLUSH 10 ML IV PUSH ×3 (07:03→20:46)
[2020-08-08 08:32] LABS: Glucose Point of Care 118 (65-105)
[2020-08-08] MEDS: LORazepam INJ (*CRX) 2 MG/ML VIAL (09:15)
[2020-08-08] MEDS: MORPHINE SULFATE INJ (*CRX) 10 MG/ML AMP (09:20)
[2020-08-08] MEDS: FUROSEMIDE INJ 40 MG/4 ML VIAL (09:20)
--- NOTE | 2020-08-08 09:34 | PC.NURSE ---
pt found to be in respiratory distress. Md notified. Weight Reducing Technician and md at bedside 0900. 2mg ativain given to lessen anxiety on bipap. Pts sats 84 on bipap. 40 lasix and 5mg morphone given. Pt still in distress. Preparing to intubate. etomidate and succ given at 0925 and pt intubated. Vent management and propofol for sedation. Pt to be moved to icu.
[2020-08-08] MEDS: ROCURONIUM BROMIDE 50 MG/5 ML VIAL IV PUSH ×2 (10:00→11:25)
[2020-08-08] MEDS: FENTANYL 2,500MCG/NS250ML(*CRX 2,500 MCG/250 ML BAG 7.5 MCG IV CONT (10:39)
[2020-08-08] MEDS: CISATRACURIUM BESYLATE 200 MG in DEXTROSE 5% 80 ML 9.86 ML IV CONT (11:25)
[2020-08-08] MEDS: ENOXAPARIN 40 MG/0.4 ML SYRINGE SUB-Q ×2 (11:43→20:46)
[2020-08-08] MEDS: PANTOPRAZOLE SODIUM IV 40 MG VIAL IV PUSH (11:49)
[2020-08-08] MEDS: RAPID SEQUENCE INTUBATION KIT 1 EACH (11:50)
--- NOTE | 2020-08-08 12:42 | WPDPROCEDUR ---
Procedures Intubation Intubation Date: 08/08/20 A pre-procedural Time-Out was completed immediately before starting the procedure and confirmed: Patient Identification, Site, Procedure, Patient Position and the Availability of Requisite Equipment: Yes Sedative: etomidate Paralytic: rocuronium Laryngoscope: fiber optic video scope Assist device used: fiber optic device ET tube size: 8 Tube secured depth (cm): 24 Tube secured location: lips Tube placement confirmation: visualized tube passing through cords, equal breath sounds bilaterally, no breath sounds over epigastrium and confirmation by capnometry Patient tolerated procedure: well Intubation complications: none
[2020-08-08] MEDS: INSULIN ASPART (*BKC) 100 UNITS/ML SUB-Q ×2 (12:58→18:17)
[2020-08-08 13:03] LABS: Glucose Point of Care 278 (65-105)
[2020-08-08 13:25] LABS: Alveolar/Arterial O2 Gradient 582.6 mmHg; Base Excess ABG -3.8 mEq/l (+/-2.0); Fractional Inspired Oxygen 100 %; HCO3 ABG 24.5 mEq/l (22.0-26.0); Oxygen Content ABG 20.5 %vol (16.0-22.0); Oxygen Saturation ABG 92.1 % (95.0-100.0); Oxyhemoglobin 90.4 % THb (90.0-100.0); PO2 ABG 73.4 mmHg (80.0-100.0); PO2 FiO2 Ratio Arterial Blood 0.73 %; Total Hemoglobin 16.1 g/dL (12.0-18.0)
[2020-08-08 13:29] LABS: Device VENTILATOR; Modified Allen's Test Pass; Site Drawn LEFT RADIAL; pH ABG 7.251 (7.350-7.450)
[2020-08-08 13:30] LABS: Arterial Blood Gas Vent Mode CMV; Arterial Blood Gas Ventilator rate 26 /MIN
[2020-08-08 13:31] LABS: Arterial Blood Gas PEEP 12 cmH2O; Arterial Blood Gas Tidal Volume 510 ml
--- NOTE | 2020-08-08 14:35 | WPDINTPN ---
Progress Note: A&P Assessment and Plan (1) Acute respiratory failure with hypoxia: Code(s): J96.01 - Acute respiratory failure with hypoxia Status: Acute Assessment and Plan: Acute respiratory failure requiring BiPAP 06/20, 100% FiO2 -likely related to COVID-19 pneumonia as lot of his emanates and his roommate were tested positive for SARS-CoV-2 PCR -patient negative for SARS-CoV-2 PCR x3 -08/08: Patient failed BiPAP was tachypneic in the 50s to 60s, anxious, pulling on the BiPAP and was intubated -post intubation patient started dropping his saturations on sedation, added Nimbex. Patient was paralyzed his O2 sats much improved -chest x-ray this morning showed diffuse infiltrates with worsening - ABGs reviewed, low tidal volume strategy, allowing permissive hypercapnia. -continue fentanyl Versed for sedation and Nimbex -patient with azithromycin and ceftriaxone (2) Suspected 2018-nCoV infection: Code(s): Z20.822 - Contact with and (suspected) exposure to COVID-19 Status: Acute Assessment and Plan: SARS-CoV-2 PCR negative x3 -appreciate infectious disease following the patient -patient has symptoms of COVID-19 along with elevated LDH, ferritin, D-dimer, CRP -continue droplet, airborne and contact isolation/precautions -continue dexamethasone which was initiated on 08/03/2020 --continue Remdesivir - convalescent plasma cannot be transfused as patient does not have a documented positive SARS-CoV-2 PCR -will monitor inflammatory markers (3) SVT (supraventricular tachycardia): Code(s): I47.1 - Supraventricular tachycardia Status: Resolved Assessment and Plan: In the ED on admission patient had an episode of SVT which resolved with adenosine IV x1 -cardiology following the patient -SVT likely secondary to respiratory distress, no further episodes (4) Acute renal failure: Qualifiers: Acute renal failure type: unspecified Qualified Code(s): N17.9 - Acute kidney failure, unspecified Code(s): N17.9 - Acute kidney failure, unspecified Status: Acute Assessment and Plan: Acute kidney injury on admission with creatinine of 1.7, patient given IV fluids, urine output has been adequate, creatinine down to normal on 08/04/2020 -continue monitor urine output, electrolytes and renal function (5) Hyperglycemia: Code(s): R73.9 - Hyperglycemia, unspecified Status: Acute Assessment and Plan: Hyperglycemia likely related to dexamethasone -will increase high-dose sliding scale -may require long-acting insulin -hemoglobin A1c is 6.8 (6) DVT prophylaxis: Code(s): Z29.9 - Encounter for prophylactic measures, unspecified Status: Acute Assessment and Plan: Lovenox to 40 mg subcu q.12 hours Additional Plan Discussed with patient updated with his condition and plan of care. I did discuss with him regarding intubation to which she agreed. Code status: Full code Critical care time spent: 39 minutes Due to a high probability of clinically significant, life threatening deterioration, the patient required my highest level of preparedness to intervene emergently and I personally spent this critical care time directly and personally managing the patient. This critical care time included obtaining a history; examining the patient; pulse oximetry; ordering and review of studies; arranging urgent treatment with development of a management plan; evaluation of patient's response to treatment; frequent reassessment; and discussions with other providers. It was exclusive of separately billable procedures and treating other patients and teaching time. Please see Assessment and Plan section and the rest of the note for further information on patient assessment and treatment Subjective Date/time seen: 08/08/20 14:35 Interval history: Reason for consult: Acute hypoxic respiratory failure, suspect COVID-19, SARS-CoV-2 PCR negative x3. Patient presented
[2020-08-08 18:22] LABS: Glucose Point of Care 282 (65-105)
[2020-08-08 19:08] LABS: NIL 0.02 IU/mL; Quantiferon TB Plus, 1T NEGATIVE (NEGATIVE)
[2020-08-08] MEDS: CISATRACURIUM BESYLATE 200 MG in DEXTROSE 5% 80 ML 13.15 ML IV CONT (20:08)
[2020-08-08] MEDS: SODIUM CHLORIDE NASAL GEL 14.1 GM 1 APPLIC NASAL (20:46)
[2020-08-08] MEDS: REMDESIVIR 100 MG/NS 250 ML 100 MG/250 ML BAG 250 MG IVPB (22:13)
[2020-08-09] VITALS (43 sets, daily range): BP systolic 94–123; BP diastolic 74–84; PULSE 78–104; RESP 17–26; TEMP 36–37.4; O2SAT 95–99; BMI 29.5
[2020-08-09 02:54] LABS: Glucose Point of Care 280 (65-105)
[2020-08-09] MEDS: CISATRACURIUM BESYLATE 200 MG in DEXTROSE 5% 80 ML 16.44 ML IV CONT ×2 (03:16→08:48)
[2020-08-09] MEDS: FENTANYL 2,500MCG/NS250ML(*CRX 2,500 MCG/250 ML BAG 12.5 MCG IV CONT (03:20)
[2020-08-09] MEDS: INSULIN ASPART (*BKC) 100 UNITS/ML SUB-Q ×3 (03:20→17:15)
[2020-08-09 05:17] LABS: Alveolar/Arterial O2 Gradient 442.6 mmHg; Base Excess ABG -2.6 mEq/l (+/-2.0); Carboxyhemoglobin 0.3 % THb (0-2.0); Device VENTILATOR; Fractional Inspired Oxygen 80 %; HCO3 ABG 24.8 mEq/l (22.0-26.0); Methemoglobin ABG 0.6 %THb (0-1.5); Oxygen Saturation ABG 92.8 % (95.0-100.0); Oxyhemoglobin 91.8 % THb (90.0-100.0); PCO2 ABG 52.5 mmHg (35.0-45.0); PO2 ABG 72.7 mmHg (80.0-100.0); PO2 FiO2 Ratio Arterial Blood 0.91 %; Reduced Hemoglobin 7.3 %THb (0-5.0); Site Drawn LEFT RADIAL; Total Hemoglobin 16.3 g/dL (12.0-18.0); pH ABG 7.292 (7.350-7.450)
[2020-08-09 05:18] LABS: Arterial Blood Gas PEEP 12 cmH2O; Arterial Blood Gas Tidal Volume 510 ml; Arterial Blood Gas Vent Mode ASSIST CONTROL; Arterial Blood Gas Ventilator rate 26 /MIN
[2020-08-09] MEDS: CENTRAL LINE FLUSH 10 ML IV PUSH ×3 (05:22→21:35)
[2020-08-09 05:38] LABS: Hematocrit 42.8 % (42.0-52.0); Hemoglobin 14.2 g/dL (14.0-18.0); Immature Platelet Fraction Pct 7.6 % (0.9-11.2); Mean Corpuscular HGB Conc 33.2 g/dl (32-36); Mean Corpuscular Hemoglobin 29.2 pg (26-34); Mean Corpuscular Volume 87.9 fl (80-100); Mean Platelet Volume 10.5 fl (7.4-10.4); Platelet Count Result 159 k/mm3 (150-375); Red Blood Count 4.87 M/mm3 (4.6-6.20); Red Cell Distribution Width 12.7 % (11.5-14.5); White Blood Count 12.6 K/mm3 (4.5-10.0)
[2020-08-09 05:58] LABS: Albumin Level 3.4 g/dL (3.5-5.1)
[2020-08-09 05:59] LABS: Alanine Aminotransferase 58 U/L (4-50); Alkaline Phosphatase 117 U/L (38-126); Anion Gap 1 mmol/L (8-16); Aspartate Amino Transferase 58 U/L (17-59); Bilirubin,Total 0.5 mg/dL (0.2-1.3); Blood Urea Nitrogen 34 mg/dL (9-20); Calcium 8.7 mg/dL (8.4-10.2); Carbon Dioxide 35 mmol/L (22-30); Chloride 99 mmol/L (98-107); Estimated CRCL calculation 72 ml/min; Estimated Glomerular Filt Rate > 60; Glucose 249 mg/dL (75-110); Lactate Dehydrogenase 1809 U/L (313-618); Magnesium 2.8 mg/dL (1.6-2.3); Phosphorus 4.5 mg/dL (2.5-4.5); Potassium 5.4 mmol/L (3.4-5.0); Sodium 135 mmol/L (137-145)
[2020-08-09 06:22] LABS: CRP 35.7 mg/dL (<1.0)
[2020-08-09 06:37] LABS: D Dimer > 20.00 ug/mL (<0.48)
[2020-08-09] MEDS: ENOXAPARIN 40 MG/0.4 ML SYRINGE SUB-Q ×2 (08:54→21:34)
[2020-08-09] MEDS: SERTRALINE HCL 50 MG TABLET PO (08:54)
[2020-08-09] MEDS: PANTOPRAZOLE SODIUM IV 40 MG VIAL IV PUSH (08:54)
[2020-08-09] MEDS: MIRTAZAPINE 30 MG TABLET PO (08:54)
[2020-08-09] MEDS: INSULIN DETEMIR 100 UNITS/ML 10 UNITS SUB-Q ×2 (09:28→21:33)
[2020-08-09 12:05] LABS: Glucose Point of Care 210 (65-105)
--- NOTE | 2020-08-09 14:40 | WPDINFPN2 ---
Progress Note: A&P Assessment and Plan (1) Suspected 2019-nCoV infection: Code(s): Z20.822 - Contact with and (suspected) exposure to COVID-19 Status: Acute Assessment and Plan: 1. Dyspnea, probably due to novel coronavirus infection with pneumonia, though no + testing (3 samples). Viral culture in process. 2. Leg weakness and numbness bilateral finger tips 1-2-3 3. Quantiferon NR. 4. Respiratory failure REC Off Remdeisivir, dexamethasone ongoing. Ctx and azithro #7, stop after today tentatively, for bacterial respiratory pathogens. Subjective Date/time seen: 08/09/20 14:40 Interval history: intubated and paralyzed, no pressors Exam Narrative: Exam Narrative: afebrile Const: General: no acute distress Resp: Effort & Inspection: normal respiratory effort Auscultation: rales Cardio: Rate: regular rate Rhythm: regular rhythm Heart sounds: no murmurs GI: Other: no masses Urinary Catheter: Urinary Catheter: patent and draining and urine clear Skin: General skin exam: normal color and no rashes or lesions noted Objective Data Vital Signs Vital Signs: Vital Signs - 24 hr 08/08/20 14:44 08/08/20 15:32 08/08/20 16:00 Temperature Pulse Rate 100 106 H 122 H Respiratory Rate 26 H 26 H 24 H Blood Pressure 106/83 109/88 Pulse Oximetry 92 08/08/20 16:54 08/08/20 18:00 08/08/20 18:19 Temperature 36.8 C Pulse Rate 96 93 91 Respiratory Rate 26 H 26 H Blood Pressure 106/79 106/79 Pulse Oximetry 93 95 08/08/20 20:00 08/08/20 20:08 08/08/20 20:10 Temperature 36.1 C L Pulse Rate 85 86 85 Respiratory Rate 26 H 26 H Blood Pressure 106/79 102/81 Pulse Oximetry 96 96 08/08/20 20:20 08/08/20 20:30 08/08/20 22:00 Temperature Pulse Rate 85 82 86 Respiratory Rate 26 H 26 H 26 H Blood Pressure 95/74 L Pulse Oximetry 96 08/08/20 22:18 08/08/20 22:19 08/08/20 22:51 Temperature Pulse Rate 84 84 86 Respiratory Rate 26 H 26 H Blood Pressure 95/74 L Pulse Oximetry 94 08/09/20 00:00 08/09/20 01:13 08/09/20 01:22 Temperature 36.0 C L Pulse Rate 79 78 78 Respiratory Rate 26 H 26 H Blood Pressure 101/76 Pulse Oximetry 96 96 08/09/20 02:00 08/09/20 02:32 08/09/20 03:16 Temperature Pulse Rate 83 84 Respiratory Rate 26 H 26 H Blood Pressure 102/77 97/77 L Pulse Oximetry 95 95 08/09/20 03:20 08/09/20 04:00 08/09/20 04:47 Temperature 36.3 C L Pulse Rate 82 82 83 Respiratory Rate 26 H 26 H Blood Pressure 97/75 L Pulse Oximetry 99 98 08/09/20 05:21 08/09/20 05:24 08/09/20 06:00 Temperature Pulse Rate 82 83 86 Respiratory Rate 26 H 26 H 26 H Blood Pressure 97/76 L Pulse Oximetry 98 08/09/20 08:00 08/09/20 08:16 08/09/20 08:18 Temperature 36.1 C L Pulse Rate 86 87 88 Respiratory Rate 26 H 26 H Blood Pressure 94/77 L Pulse Oximetry 97 97 08/09/20 08:23 08/09/20 08:48 08/09/20 10:00 Temperature Pulse Rate 88 93 97 Respiratory Rate 17 26 H 26 H Blood Pressure 94/77 L 100/74 Pulse Oximetry 97 08/09/20 10:51 08/09/20 11:35 08/09/20 11:36 Temperature Pulse Rate 94 95 95 Respiratory Rate 26 H 26 H Blood Pressure 106/76 Pulse Oximetry 98 08/09/20 12:00 08/09/20 13:52 08/09/20 13:53 Temperature 36.4 C L Pulse Rate 94 93 95 Respiratory Rate 26 H 26 H 26 H Blood Pressure 105/74 103/79 Pulse Oximetry 97 08/09/20 14:00 Temperature Pulse Rate 93 Respiratory Rate 26 H Blood Pressure 103/77 Pulse Oximetry 98 Intake/Output Intake/Output: Intake & Output 08/06/20 08/07/20 08/08/20 08/09/20 23:59 23:59 23:59 23:59 Intake Total 808 1300 850 573 Output Total 2500 1035 1150 705 [facility] -[phone] Meds/Results Medications: Active Medications Generic Name Dose Route Start Last Admin Trade Name Freq PRN Reason Stop Dose Admin Acetaminophen 650 mg 08/03/20 00:41 Acetaminophen 325 Mg Tablet PO Q4H PRN Mild Pain (1-3) or Fever
--- NOTE | 2020-08-09 15:01 | WPDINTPN ---
Progress Note: A&P Assessment and Plan (1) Acute respiratory failure with hypoxia: Code(s): J96.01 - Acute respiratory failure with hypoxia Status: Acute Assessment and Plan: Acute respiratory failure requiring BiPAP 06/20, 100% FiO2 -likely related to COVID-19 pneumonia as lot of his emanates and his roommate were tested positive for SARS-CoV-2 PCR -patient negative for SARS-CoV-2 PCR x3 -08/08: Patient failed BiPAP was tachypneic in the 50s to 60s, anxious, pulling on the BiPAP and was intubated -patient on low tidal volume strategy, peep of, will wean FiO2 as tolerated -chest x-ray shows extensive bilateral infiltrates - -continue fentanyl Versed for sedation and Nimbex -patient with azithromycin and ceftriaxone will DC today (2) Suspected 2019-nCoV infection: Code(s): Z20.822 - Contact with and (suspected) exposure to COVID-19 Status: Acute Assessment and Plan: SARS-CoV-2 PCR negative x3 -appreciate infectious disease following the patient -patient has symptoms of COVID-19 along with elevated LDH, ferritin, D-dimer, CRP -continue droplet, airborne and contact isolation/precautions -continue dexamethasone which was initiated on 08/03/2020 --continue Remdesivir - convalescent plasma cannot be transfused as patient does not have a documented positive SARS-CoV-2 PCR -will monitor inflammatory markers -QuantiFERON gold test was negative (3) SVT (supraventricular tachycardia): Code(s): I47.1 - Supraventricular tachycardia Status: Resolved Assessment and Plan: In the ED on admission patient had an episode of SVT which resolved with adenosine IV x1 -cardiology following the patient -SVT likely secondary to respiratory distress, no further episodes (4) Acute renal failure: Qualifiers: Acute renal failure type: unspecified Qualified Code(s): N17.9 - Acute kidney failure, unspecified Code(s): N17.9 - Acute kidney failure, unspecified Status: Acute Assessment and Plan: Acute kidney injury on admission with creatinine of 1.7, patient given IV fluids, urine output has been adequate, creatinine down to normal on 08/04/2020 -continue monitor urine output, electrolytes and renal function (5) Hyperglycemia: Code(s): R73.9 - Hyperglycemia, unspecified Status: Acute Assessment and Plan: Hyperglycemia likely related to dexamethasone -will increase high-dose sliding scale -may require long-acting insulin -hemoglobin A1c is 6.8 (6) DVT prophylaxis: Code(s): Z29.9 - Encounter for prophylactic measures, unspecified Status: Acute Assessment and Plan: Lovenox to 40 mg subcu q.12 hours Additional Plan Unable to get hold of his family Code status: Full code Critical care time spent: 34 minutes Due to a high probability of clinically significant, life threatening deterioration, the patient required my highest level of preparedness to intervene emergently and I personally spent this critical care time directly and personally managing the patient. This critical care time included obtaining a history; examining the patient; pulse oximetry; ordering and review of studies; arranging urgent treatment with development of a management plan; evaluation of patient's response to treatment; frequent reassessment; and discussions with other providers. It was exclusive of separately billable procedures and treating other patients and teaching time. Please see Assessment and Plan section and the rest of the note for further information on patient assessment and treatment Subjective Date/time seen: 08/09/20 15:01 Interval history: Reason for consult: Acute hypoxic respiratory failure, suspect COVID-19, SARS-CoV-2 PCR negative x3. Patient presented from the care home with shortness of breath, loss of taste and smell, cough, fevers, body aches and pains for the last 1 week. Many inmates at the present tested positive a COVID-19 along with his room
[2020-08-09] MEDS: CISATRACURIUM BESYLATE 200 MG in DEXTROSE 5% 80 ML 6.58 ML IV CONT (16:00)
[2020-08-09 17:36] LABS: Glucose Point of Care 249 (65-105)
[2020-08-09] MEDS: SODIUM CHLORIDE NASAL GEL 14.1 GM 1 APPLIC NASAL (21:34)
[2020-08-09 21:49] LABS: Glucose Point of Care 266 (65-105)
[2020-08-10] VITALS (40 sets, daily range): BP systolic 115–148; BP diastolic 67–97; PULSE 104–125; RESP 19–26; TEMP 36.8–37.4; O2SAT 93–98
[2020-08-10] MEDS: FENTANYL 2,500MCG/NS250ML(*CRX 2,500 MCG/250 ML BAG 12.5 MCG IV CONT (00:43)
[2020-08-10] MEDS: INSULIN ASPART (*BKC) 100 UNITS/ML SUB-Q ×3 (00:45→12:29)
[2020-08-10 01:29] LABS: Glucose Point of Care 287 (65-105)
[2020-08-10] MEDS: CISATRACURIUM BESYLATE 200 MG in DEXTROSE 5% 80 ML 13.15 ML IV CONT ×2 (02:10→20:09)
[2020-08-10 03:54] LABS: Base Excess ABG -0.9 mEq/l (+/-2.0); Carboxyhemoglobin 0.3 % THb (0-2.0); Fractional Inspired Oxygen 65 %; Methemoglobin ABG 0.7 %THb (0-1.5); Oxygen Content ABG 19.6 %vol (16.0-22.0); Oxyhemoglobin 92.4 % THb (90.0-100.0); PO2 ABG 74.4 mmHg (80.0-100.0); PO2 FiO2 Ratio Arterial Blood 1.14 %; Reduced Hemoglobin 6.6 %THb (0-5.0); Total Hemoglobin 15.1 g/dL (12.0-18.0)
[2020-08-10 03:55] LABS: Arterial Blood Gas PEEP 12 cmH2O; Arterial Blood Gas Vent Mode CMV; Arterial Blood Gas Ventilator rate 26 /MIN; Device VENTILATOR; Modified Allen's Test Pass; Site Drawn LEFT RADIAL; pH ABG 7.286 (7.350-7.450)
[2020-08-10 03:56] LABS: Arterial Blood Gas Tidal Volume 510 ml
[2020-08-10 05:03] LABS: Hemoglobin 14.2 g/dL (14.0-18.0); Immature Platelet Fraction Pct 11.5 % (0.9-11.2); Mean Corpuscular HGB Conc 32.3 g/dl (32-36); Mean Corpuscular Hemoglobin 29.1 pg (26-34); Mean Corpuscular Volume 90.2 fl (80-100); Mean Platelet Volume 11.2 fl (7.4-10.4); Platelet Count Result 162 k/mm3 (150-375); Red Blood Count 4.88 M/mm3 (4.6-6.20); Red Cell Distribution Width 12.9 % (11.5-14.5); White Blood Count 16.1 K/mm3 (4.5-10.0)
[2020-08-10 05:27] LABS: Alanine Aminotransferase 49 U/L (4-50); Albumin Level 3.3 g/dL (3.5-5.1); Alkaline Phosphatase 122 U/L (38-126); Anion Gap 6 mmol/L (8-16); Aspartate Amino Transferase 40 U/L (17-59); Bilirubin,Total 0.4 mg/dL (0.2-1.3); Blood Urea Nitrogen 50 mg/dL (9-20); Calcium 8.6 mg/dL (8.4-10.2); Carbon Dioxide 31 mmol/L (22-30); Chloride 99 mmol/L (98-107); Estimated CRCL calculation 59 ml/min; Estimated Glomerular Filt Rate 48; Glucose 276 mg/dL (75-110); Magnesium 3.4 mg/dL (1.6-2.3); Phosphorus 4.8 mg/dL (2.5-4.5); Potassium 5.7 mmol/L (3.4-5.0); Sodium 136 mmol/L (137-145)
[2020-08-10] MEDS: CENTRAL LINE FLUSH 10 ML IV PUSH ×5 (05:36→20:11)
[2020-08-10] MEDS: PANTOPRAZOLE SODIUM IV 40 MG VIAL IV PUSH (08:58)
[2020-08-10] MEDS: ENOXAPARIN 40 MG/0.4 ML SYRINGE SUB-Q (08:58)
[2020-08-10] MEDS: INSULIN DETEMIR 100 UNITS/ML 16 UNITS SUB-Q (08:59)
[2020-08-10] MEDS: ALBUTEROL SULFATE NEB 2.5 MG/0.5 ML INH 10 MG INHALATION (09:21)
[2020-08-10] MEDS: DEXTROSE 50% 25 GM/50 ML SYRINGE IV PUSH (09:27)
[2020-08-10] MEDS: SODIUM POLYSTYRENE SULFONONATE 15 GM/60 ML BTL PO (09:27)
[2020-08-10] MEDS: INSULIN HUMAN REGULAR (*BKC) 100 UNITS/ML 10 UNITS IV PUSH (09:27)
[2020-08-10 11:29] LABS: Creatinine Urine 102.7 mg/dL; Potassium Urine Random 36.9 meq/L; Sodium Urine Random 9 meq/L
--- NOTE | 2020-08-10 11:36 | PCDIET ---
Nutrition Follow-Up Complete: Nutrition Diagnosis: Inadequate oral intake related to oral intubation as evidenced by NPO status. Nutrition Goal: Patient to meet estimated nutritional needs. Goal in progress. Patient tolerating Glucerna 1.2 at 40mL/hr with 30mL water flush every 4 hours. Recommend change to Nepro at goal of 50mL/hr with 30mL water flush every 4 hours. Given 22 hour/day infusion, this will provide 1980kcal and 89g protein daily. Last recorded weight is 104.3 kg which is decreased from last review. Bowel Motility: Last documented BM on 08/05/20. Labs Reviewed: Glu (276), BUN (50), Cr (1.5), K (5.7), Na (136), Alb (3.3), PO4 (4.8), Mg (3.4) Meds Noted: Zithromax, Rocephin, Nimbex, Decadron, Versed, Remeron, Fentanyl, Novolog, Levemir, Protonix, Kayexalate Additional Notes: No skin breakdown reported. Will continue to monitor with same goal. Nutrition Monitoring and Evaluation: Follow up every Sunday/Sunday. Follow daily in ICU rounds.
--- NOTE | 2020-08-10 11:55 | PM.CNNEP ---
Assessment and Plan Assessment and plan (1) Acute renal failure: Qualifiers: Acute renal failure type: unspecified Qualified Code(s): N17.9 - Acute kidney failure, unspecified Code(s): N17.9 - Acute kidney failure, unspecified Status: Acute Assessment and Plan: due to infection +/- prerenal issues renal ultrasound okay follow-up on urine electrolytesa follow trend of UOP and repeat labs (2) Acute respiratory failure with hypoxia: Code(s): J96.01 - Acute respiratory failure with hypoxia Status: Acute Assessment and Plan: due to COVID-19 versus bacterial infection versus both continue ventilator support wean as tolerated (3) Suspected COVID-19 virus infection: Code(s): Z20.822 - Contact with and (suspected) exposure to COVID-19 Status: Acute Assessment and Plan: testing negative to date x 3 however, s/p remdesivir therapy along with steroids follow-up on viral cultures (4) Pneumonia: Qualifiers: Laterality: bilateral Lung location: unspecified part of lung Pneumonia type: due to unspecified organism Qualified Code(s): J18.9 - Pneumonia, unspecified organism Code(s): J18.9 - Pneumonia, unspecified organism Status: Acute Assessment and Plan: due to COVID-19 versus bacterial infection getting IV antibiotics s/p remdesivir and ongoing steroid therapy Infectious Disease following (5) Swelling of right upper extremity: Code(s): M79.89 - Other specified soft tissue disorders Status: Acute Assessment and Plan: due to multiple DVTs on anticagulation (6) SVT (supraventricular tachycardia): Code(s): I47.1 - Supraventricular tachycardia Status: Resolved Assessment and Plan: no further recurrence s/p adenosine in ER Will continue to follow. History of Present Illness Reason for Consult Consult date: 08/10/20 Reason for consult: acute renal failure Chief Complaint Chief complaint: Acute hypoxemic respiratory failure, Pneumonia, History of Present Illness Narrative: All of the information I have obtained is from review of the electronic medical record as well as discussion with the physicians and nurses involved in his care as the patient is unable to provide me with any history at this time due to his current clinical status (intubated and sedated). 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 His shortness of breath was initially tolerable but in the week prior to admission, it appears to have been slowly worsening. Other associated symptoms included cough, fatigue, subjective fevers, and body aches. As his conditioned deteriorated while in custodial to apparent respiratory distress, he sent to the ER for evaluation. Work-up and evaluation in the ER demonstrated the patient to be quite tachycardic associated with the aforementioned respiratory distress. BiPAP was applied and this seems to help with his breathing. Tachycardia persisted and ti was difficult to assess his rhythm but he failed to improve with IV diltiazem. Rhythm was suspected to be SVT and he converted to NSR with the use of IV adenosine. As there were numerous other custodial inmate who were COVID-19 positive, the concern of course was he had COVID 19 pneumonia as his chest x-ray did look like bilateral infiltrates and congestion consistent with this diagnosis. Routine blood tests were significant for evidence of acute renal failure/ acute kidney injury as well. Appropriate cultures were obtained including screening test for COVID-19 and he was empirically started on IV antibiotics on the assumption for possible bacterial pneumonia as well in conjunction with nebulizer treatments and IV dexamethasone with subsequent admission to the hospital. U
[2020-08-10] MEDS: CISATRACURIUM BESYLATE 200 MG in DEXTROSE 5% 80 ML 9.86 ML IV CONT (12:08)
--- NOTE | 2020-08-10 12:09 | WPDINTPN ---
Progress Note: A&P Assessment and Plan (1) Acute respiratory failure with hypoxia: Code(s): J96.01 - Acute respiratory failure with hypoxia Status: Acute Assessment and Plan: Acute respiratory failure requiring BiPAP 06/20, 100% FiO2 -likely related to COVID-19 pneumonia as lot of his emanates and his roommate were tested positive for SARS-CoV-2 PCR -patient negative for SARS-CoV-2 PCR x3 -08/08: Patient failed BiPAP was tachypneic in the 50s to 60s, anxious, pulling on the BiPAP and was intubated -patient on low tidal volume strategy, peep of 12, will wean FiO2 as tolerated -chest x-ray shows extensive bilateral infiltrates - -continue fentanyl Versed for sedation and Nimbex -patient with azithromycin and ceftriaxone (2) Suspected 2019-nCoV infection: Code(s): Z20.822 - Contact with and (suspected) exposure to COVID-19 Status: Acute Assessment and Plan: SARS-CoV-2 PCR negative x3 -appreciate infectious disease following the patient -patient has symptoms of COVID-19 along with elevated LDH, ferritin, D-dimer, CRP -continue droplet, airborne and contact isolation/precautions -continue dexamethasone which was initiated on 08/03/2020 --continue Remdesivir - convalescent plasma cannot be transfused as patient does not have a documented positive SARS-CoV-2 PCR -will monitor inflammatory markers -QuantiFERON gold test was negative (3) SVT (supraventricular tachycardia): Code(s): I47.1 - Supraventricular tachycardia Status: Resolved Assessment and Plan: In the ED on admission patient had an episode of SVT which resolved with adenosine IV x1 -cardiology following the patient -SVT likely secondary to respiratory distress, no further episodes (4) Acute renal failure: Qualifiers: Acute renal failure type: unspecified Qualified Code(s): N17.9 - Acute kidney failure, unspecified Code(s): N17.9 - Acute kidney failure, unspecified Status: Acute Assessment and Plan: Acute kidney injury on admission with creatinine of 1.7, patient given IV fluids, urine output has been adequate, creatinine down to normal on 08/04/2020 -worsening creatinine, hyperkalemia -nephrology was consulted -renal ultrasound 08/10/2020 normal kidneys, no hydronephrosis, diffuse hepatic steatosis -hyperkalemia was treated -urine lytes have been ordered (5) Hyperglycemia: Code(s): R73.9 - Hyperglycemia, unspecified Status: Acute Assessment and Plan: Hyperglycemia likely related to dexamethasone -continue Accu-Cheks and sliding scale insulin -hemoglobin A1c is 6.8 -increase Levemir (6) Swelling of right upper extremity: Code(s): M79.89 - Other specified soft tissue disorders Status: Acute Assessment and Plan: Venous Dopplers 08/10/2020 of right upper extremity: Positive for right subclavian, axillary DVT, cephalic SVT. -will start heparin infusion (7) DVT prophylaxis: Code(s): Z29.9 - Encounter for prophylactic measures, unspecified Status: Acute Assessment and Plan: Will start heparin infusion and discontinue Lovenox Additional Plan Unable to get hold of his family Code status: Full code Critical care time spent: 34 minutes Due to a high probability of clinically significant, life threatening deterioration, the patient required my highest level of preparedness to intervene emergently and I personally spent this critical care time directly and personally managing the patient. This critical care time included obtaining a history; examining the patient; pulse oximetry; ordering and review of studies; arranging urgent treatment with development of a management plan; evaluation of patient's response to treatment; frequent reassessment; and discussions with other providers. It was exclusive of separately billable procedures and treating other patients and teaching time. Please see Assessment and Plan section and the rest of the not
[2020-08-10 12:26] LABS: Glucose Point of Care 338 (65-105)
--- NOTE | 2020-08-10 12:26 | WPDINFPN2 ---
Progress Note: A&P Assessment and Plan (1) Suspected 2019-nCoV infection: Code(s): Z20.822 - Contact with and (suspected) exposure to COVID-19 Status: Acute Assessment and Plan: 1. Dyspnea, probably due to novel coronavirus infection with pneumonia, though no + testing (3 samples). Viral culture in process. CXR no change. WBC at 16 2. Leg weakness and numbness bilateral finger tips 1-2-3 3. Quantiferon NR. 4. Respiratory failure 5. Hyperglycemia, with mildly abnormal Hgb A1C, possible new diagnosis DM type 2. REC Off Remdeisivir, dexamethasone ongoing. Ctx and azithro #8, stop and follow. Subjective Date/time seen: 08/10/20 12:26 Interval history: fentanyl and versed, no paralytics Exam Narrative: Exam Narrative: afebrile. No pressors Const: General: no acute distress Resp: Effort & Inspection: normal respiratory effort Auscultation: clear to auscultation bilaterally Cardio: Rate: regular rate Rhythm: regular rhythm Heart sounds: no murmurs GI: Inspection: non-distended GI Palp: Yes Soft to palpation and No Tenderness to palpation present (GI) Urinary Catheter: Urinary Catheter: patent and draining and urine clear Skin: General skin exam: normal color and no rashes or lesions noted Objective Data Vital Signs Vital Signs: Vital Signs - 24 hr 08/09/20 13:52 08/09/20 13:53 08/09/20 14:00 Temperature Pulse Rate 93 95 93 Respiratory Rate 26 H 26 H 26 H Blood Pressure 103/79 103/77 Pulse Oximetry 98 08/09/20 15:59 08/09/20 16:00 08/09/20 16:01 Temperature Pulse Rate 100 92 96 Respiratory Rate 26 H 26 H 26 H Blood Pressure 105/76 Pulse Oximetry 97 97 08/09/20 16:04 08/09/20 17:00 08/09/20 17:16 Temperature 36.9 C Pulse Rate 94 97 97 Respiratory Rate 26 H 26 H Blood Pressure 105/76 108/83 Pulse Oximetry 98 98 08/09/20 18:00 08/09/20 18:17 08/09/20 18:18 Temperature Pulse Rate 96 96 98 Respiratory Rate 26 H 26 H 26 H Blood Pressure 112/76 112/76 Pulse Oximetry 98 08/09/20 20:00 08/09/20 20:54 08/09/20 20:55 Temperature 37.4 C Pulse Rate 100 100 100 Respiratory Rate 26 H 26 H Blood Pressure 109/81 Pulse Oximetry 97 98 08/09/20 20:58 08/09/20 21:45 08/09/20 22:00 Temperature Pulse Rate 102 H 101 H 104 H Respiratory Rate 26 H 26 H 26 H Blood Pressure 108/84 123/81 Pulse Oximetry 99 08/09/20 23:04 08/09/20 23:05 08/10/20 00:00 Temperature 37.4 C Pulse Rate 102 H 105 H Respiratory Rate 26 H Blood Pressure 123/88 Pulse Oximetry 98 97 96 08/10/20 00:20 08/10/20 00:40 08/10/20 00:43 Temperature Pulse Rate 115 H 113 H 113 H Respiratory Rate 26 H 26 H 26 H Blood Pressure 123/88 Pulse Oximetry 08/10/20 01:56 08/10/20 02:00 08/10/20 02:09 Temperature Pulse Rate 106 H 108 H 110 H Respiratory Rate 26 H 26 H 26 H Blood Pressure 115/87 Pulse Oximetry 98 97 08/10/20 02:10 08/10/20 02:12 08/10/20 04:00 Temperature 36.9 C Pulse Rate 108 H 108 H 105 H Respiratory Rate 26 H 26 H 26 H Blood Pressure 115/87 115/91 H Pulse Oximetry 98 08/10/20 04:15 08/10/20 04:52 08/10/20 05:39 Temperature Pulse Rate 104 H 105 H 111 H Respiratory Rate 26 H 26 H Blood Pressure 115/91 H 131/82 Pulse Oximetry 98 08/10/20 06:00 08/10/20 08:00 08/10/20 09:21 Temperature 36.8 C Pulse Rate 112 H 108 H 109 H Respiratory Rate 26 H 26 H 26 H Blood Pressure 135/91 H 117/90 Pulse Oximetry 98 96 97 08/10/20 09:40 08/10/20 11:45 08/10/20 12:08 Temperature Pulse Rate 115 H 123 H 123 H Respiratory Rate 19 19 Blood Pressure 128/90 128/90 Pulse Oximetry 96 97 Intake/Output Intake/Output: Intake & Output 08/07/20 08/08/20 08/09/20 08/10/20 23:59 23:59 23:59 23:59 Intake Total 8947 316 1042.8 791.2 Output Total 9194 7180 1305 800 Balance -975 -300 91.8 -8.8 Meds/Results Medications: Active Medications Generic Name Dose Route Start Last Admin Trade Name Freligia P
[2020-08-10 12:58] LABS: Hemoglobin 14.3 g/dL (14.0-18.0); Mean Corpuscular HGB Conc 32.5 g/dl (32-36); Mean Corpuscular Hemoglobin 29.3 pg (26-34); Mean Corpuscular Volume 90.2 fl (80-100); Mean Platelet Volume 10.2 fl (7.4-10.4); Platelet Count Result 164 k/mm3 (150-375); Red Blood Count 4.88 M/mm3 (4.6-6.20); Red Cell Distribution Width 13.1 % (11.5-14.5); White Blood Count 18.6 K/mm3 (4.5-10.0)
[2020-08-10 13:10] LABS: INR 1.3; Prothrombin Time 16.3 Seconds (11.1-14.7)
[2020-08-10 13:11] LABS: Partial Thromboplastin Time 28.9 SECONDS (22.3-36.8)
[2020-08-10] MEDS: HEPARIN SOD/D5W 100 UNITS/ML 25,000 UNITS/250 ML BAG 15 UNITS IV CONT (13:18)
[2020-08-10 14:00] LABS: Band Neutrophils Percent 3 % (0-6); Lymphocytes Absolute Manual 0.55 K/mm3 (1.1-4.5); Metamyelocytes Percent 2 %; Monocytes Absolute Manual 1.11 K/mm3 (0.1-0.90); Monocytes Percent Manual 6 % (3-9); Neutrophils Absolute Manual 16.55 K/mm3 (1.3-6.7); Neutrophils Percent Manual 86 % (46-73); Platelet Estimate Adequate (Adequate); Total Cells Counted 100
[2020-08-10] MEDS: LIDOCAINE HCL 1% LOCAL INJ 2 ML AMPUL 5 ML INFILTRATE (14:30)
[2020-08-10 18:40] LABS: Glucose Point of Care 418 (65-105)
[2020-08-10] MEDS: FENTANYL 2,500MCG/NS250ML(*CRX 2,500 MCG/250 ML BAG 15 MCG IV CONT (19:55)
[2020-08-10] MEDS: INSULIN ASPART (*BKC) 100 UNITS/ML 12 UNITS SUB-Q (19:58)
[2020-08-10] MEDS: SODIUM CHLORIDE NASAL GEL 14.1 GM 1 APPLIC NASAL ×2 (20:01)
[2020-08-10] MEDS: INSULIN DETEMIR 100 UNITS/ML 30 UNITS SUB-Q (20:11)
[2020-08-10 22:13] LABS: Partial Thromboplastin Time 59.6 SECONDS (22.3-36.8)
[2020-08-10] MEDS: HEPARIN SODIUM 5,000 UNITS/ML VIAL 3500 UNITS IV PUSH (22:51)
[2020-08-11] VITALS (52 sets, daily range): BP systolic 105–125; BP diastolic 77–89; PULSE 94–114; RESP 24–26; TEMP 36.6–36.8; O2SAT 95–100
[2020-08-11] MEDS: INSULIN HUMAN REGULAR (*BKC) 100 UNITS in SODIUM CHLORIDE 0.9% IV 99 ML 7.2 UNITS IV CONT (00:51)
[2020-08-11 01:36] LABS: Glucose Point of Care 449 (65-105)
[2020-08-11 02:20] LABS: Glucose Point of Care 316 (65-105)
[2020-08-11] MEDS: CISATRACURIUM BESYLATE 200 MG in DEXTROSE 5% 80 ML 13.15 ML IV CONT (03:35)
[2020-08-11 04:02] LABS: Glucose Point of Care 316 (65-105)
[2020-08-11] MEDS: HEPARIN SOD/D5W 100 UNITS/ML 25,000 UNITS/250 ML BAG 17 UNITS IV CONT (04:52)
[2020-08-11] MEDS: CENTRAL LINE FLUSH 10 ML IV PUSH ×4 (04:54→20:06)
[2020-08-11 05:09] LABS: Glucose Point of Care 247 (65-105)
[2020-08-11 05:18] LABS: Hematocrit 43.9 % (42.0-52.0); Mean Corpuscular HGB Conc 31.9 g/dl (32-36); Mean Corpuscular Hemoglobin 28.2 pg (26-34); Mean Corpuscular Volume 88.3 fl (80-100); Mean Platelet Volume 10.9 fl (7.4-10.4); Platelet Count Result 164 k/mm3 (150-375); Red Blood Count 4.97 M/mm3 (4.6-6.20); White Blood Count 16.8 K/mm3 (4.5-10.0)
[2020-08-11 05:38] LABS: Alveolar/Arterial O2 Gradient 220.4 mmHg; Base Excess ABG 2.9 mEq/l (+/-2.0); Carboxyhemoglobin 0.3 % THb (0-2.0); Device VENTILATOR; Fractional Inspired Oxygen 50 %; Methemoglobin ABG 0.6 %THb (0-1.5); Modified Allen's Test Unable to perform; Oxygen Saturation ABG 93.9 % (95.0-100.0); Oxyhemoglobin 92.9 % THb (90.0-100.0); PCO2 ABG 55.5 mmHg (35.0-45.0); PO2 ABG 73.7 mmHg (80.0-100.0); PO2 FiO2 Ratio Arterial Blood 1.47 %; Reduced Hemoglobin 6.2 %THb (0-5.0); Site Drawn LEFT RADIAL; Total Hemoglobin 15.3 g/dL (12.0-18.0)
[2020-08-11 05:39] LABS: Arterial Blood Gas PEEP 12 cmH2O; Arterial Blood Gas Tidal Volume 510 ml; Arterial Blood Gas Vent Mode ASSIST CONTROL; Arterial Blood Gas Ventilator rate 26 /MIN
[2020-08-11 05:45] LABS: Partial Thromboplastin Time 136.5 SECONDS (22.3-36.8)
[2020-08-11 05:59] LABS: D Dimer 6.47 ug/mL (<0.48)
[2020-08-11 06:25] LABS: Alanine Aminotransferase 64 U/L (4-50); Albumin Level 3.4 g/dL (3.5-5.1); Alkaline Phosphatase 149 U/L (38-126); Anion Gap 1 mmol/L (8-16); Aspartate Amino Transferase 49 U/L (17-59); Bilirubin,Total 0.4 mg/dL (0.2-1.3); Blood Urea Nitrogen 46 mg/dL (9-20); Calcium 9.7 mg/dL (8.4-10.2); Carbon Dioxide 39 mmol/L (22-30); Chloride 103 mmol/L (98-107); Estimated CRCL calculation 63 ml/min; Estimated Glomerular Filt Rate 52; Glucose 263 mg/dL (75-110); Lactate Dehydrogenase 1281 U/L (313-618); Magnesium 3.7 mg/dL (1.6-2.3); Phosphorus 4.3 mg/dL (2.5-4.5); Potassium 4.6 mmol/L (3.4-5.0); Sodium 143 mmol/L (137-145)
[2020-08-11 06:36] LABS: Glucose Point of Care 247 (65-105)
[2020-08-11 06:37] LABS: Band Neutrophils Percent 3 % (0-6); Eosinophils Absolute Manual 0.16 K/mm3 (0.02-0.5); Eosinophils Percent Manual 1 % (0-4); Lymphocytes Absolute Manual 1.34 K/mm3 (1.1-4.5); Metamyelocytes Percent 1 %; Neutrophils Absolute Manual 15.12 K/mm3 (1.3-6.7); Neutrophils Percent Manual 87 % (46-73); Total Cells Counted 100
[2020-08-11 06:38] LABS: Platelet Estimate Adequate (Adequate)
[2020-08-11 07:31] LABS: CRP 26.4 mg/dL (<1.0)
[2020-08-11] MEDS: HEPARIN SOD/D5W 100 UNITS/ML 25,000 UNITS/250 ML BAG 14 UNITS IV CONT (07:40)
[2020-08-11] MEDS: PANTOPRAZOLE SODIUM IV 40 MG VIAL IV PUSH (07:44)
--- NOTE | 2020-08-11 08:43 | P.PNNP_ITS ---
Progress Note: A&P Assessment and Plan (1) Acute renal failure: Qualifiers: Acute renal failure type: unspecified Qualified Code(s): N17.9 - Acute kidney failure, unspecified Code(s): N17.9 - Acute kidney failure, unspecified Status: Acute Assessment and Plan: * due to infection AND prerenal issues * renal ultrasound okay * urine electrolytes demonstrate pre-renal azotemia * discussed with Dr. Ocampo - give a trial of IVFs and follow trend of creatinine * follow trend of UOP and repeat labs (2) Acute respiratory failure with hypoxia: Code(s): J96.01 - Acute respiratory failure with hypoxia Status: Acute Assessment and Plan: * due to COVID-19 versus bacterial infection versus both * continue ventilator support * wean as tolerated (3) Suspected COVID-19 virus infection: Code(s): Z20.822 - Contact with and (suspected) exposure to COVID-19 Status: Acute Assessment and Plan: * testing negative to date x 3 * however, s/p remdesivir therapy along with steroids * follow-up on viral cultures (4) Pneumonia: Qualifiers: Laterality: bilateral Lung location: unspecified part of lung Pneumonia type: due to unspecified organism Qualified Code(s): J18.9 - Pneumonia, unspecified organism Code(s): J18.9 - Pneumonia, unspecified organism Status: Acute Assessment and Plan: * due to COVID-19 versus bacterial infection * completed course of IV antibiotics * s/p remdesivir and ongoing steroid therapy * Infectious Disease following (5) Swelling of right upper extremity: Code(s): M79.89 - Other specified soft tissue disorders Status: Acute Assessment and Plan: * due to multiple DVTs * on anticagulation (6) SVT (supraventricular tachycardia): Code(s): I47.1 - Supraventricular tachycardia Status: Resolved Assessment and Plan: * no further recurrence * s/p adenosine in ER Will continue to follow. Subjective Date/time seen: 08/11/20 08:43 Remains on ventilator support but reinstituted on paralytics due to tachycardia and hypoxia; insulin gtt started due to persistent hyperglycemia; urine output stable with improvement in creatinine and potassium; no other acute events noted at this time. Exam Narrative: Exam Narrative: General: ill appearing male intubated/sedated/paralyzed Heart: normal S1 and S2; no rub Lungs: coarse with scatterd rhonchi and rales Abdomen: soft, nontender, nondistended, positive bowel sounds Extremities: no cyanosis or clubbing; no edema Skin: warm and dry Objective Data Vital Signs Vital Signs: Vital Signs Temp Pulse Resp BP Pulse Ox 08/11/20 08:30 112 H 26 H 109/86 08/11/20 08:00 36.8 C 110 H 26 H 109/86 96 08/11/20 07:42 110 H 26 H 08/11/20 07:41 110 H 26 H 08/11/20 07:40 110 H 26 H 120/84 08/11/20 06:32 101 H 26 H 123/86 08/11/20 06:00 107 H 26 H 114/83 95 08/11/20 05:16 106 H 96 08/11/20 04:00 36.6 C 110 H 26 H 120/86 98 08/11/20 03:46 110 H 26 H 08/11/20 03:44 111 H 26 H 08/11/20 03:35 112 H 26 H 119/89 08/11/20 02:17 112 H 26 H 121/88 08/11/20 02:15 112 H 26 H 08/11/20 02:11 112 H 96 08/11/20 02:02 114 H 26 H 08/11/20 02:00 111 H 26 H 121/88 96
--- NOTE | 2020-08-11 08:43 | PM.PNNEP ---
Progress Note: A&P Assessment and Plan (1) Acute renal failure: Qualifiers: Acute renal failure type: unspecified Qualified Code(s): N17.9 - Acute kidney failure, unspecified Code(s): N17.9 - Acute kidney failure, unspecified Status: Acute Assessment and Plan: due to infection AND prerenal issues renal ultrasound okay urine electrolytes demonstrate pre-renal azotemia discussed with Dr. Ocampo - give a trial of IVFs and follow trend of creatinine follow trend of UOP and repeat labs (2) Acute respiratory failure with hypoxia: Code(s): J96.01 - Acute respiratory failure with hypoxia Status: Acute Assessment and Plan: due to COVID-19 versus bacterial infection versus both continue ventilator support wean as tolerated (3) Suspected COVID-19 virus infection: Code(s): Z20.822 - Contact with and (suspected) exposure to COVID-19 Status: Acute Assessment and Plan: testing negative to date x 3 however, s/p remdesivir therapy along with steroids follow-up on viral cultures (4) Pneumonia: Qualifiers: Laterality: bilateral Lung location: unspecified part of lung Pneumonia type: due to unspecified organism Qualified Code(s): J18.9 - Pneumonia, unspecified organism Code(s): J18.9 - Pneumonia, unspecified organism Status: Acute Assessment and Plan: due to COVID-19 versus bacterial infection completed course of IV antibiotics s/p remdesivir and ongoing steroid therapy Infectious Disease following (5) Swelling of right upper extremity: Code(s): M79.89 - Other specified soft tissue disorders Status: Acute Assessment and Plan: due to multiple DVTs on anticagulation (6) SVT (supraventricular tachycardia): Code(s): I47.1 - Supraventricular tachycardia Status: Resolved Assessment and Plan: no further recurrence s/p adenosine in ER Will continue to follow. Subjective Date/time seen: 08/11/20 08:43 Remains on ventilator support but reinstituted on paralytics due to tachycardia and hypoxia; insulin gtt started due to persistent hyperglycemia; urine output stable with improvement in creatinine and potassium; no other acute events noted at this time. Exam Narrative: Exam Narrative: General: ill appearing male intubated/sedated/paralyzed Heart: normal S1 and S2; no rub Lungs: coarse with scatterd rhonchi and rales Abdomen: soft, nontender, nondistended, positive bowel sounds Extremities: no cyanosis or clubbing; no edema Skin: warm and dry Objective Data Vital Signs Vital Signs: Vital Signs Temp Pulse Resp BP Pulse Ox 08/11/20 08:30 112 H 26 H 109/86 08/11/20 08:00 36.8 C 110 H 26 H 109/86 96 08/11/20 07:42 110 H 26 H 08/11/20 07:41 110 H 26 H 08/11/20 07:40 110 H 26 H 120/84 08/11/20 06:32 101 H 26 H 123/86 08/11/20 06:00 107 H 26 H 114/83 95 08/11/20 05:16 106 H 96 08/11/20 04:00 36.6 C 110 H 26 H 120/86 98 08/11/20 03:46 110 H 26 H 08/11/20 03:44 111 H 26 H 08/11/20 03:35 112 H 26 H 119/89 08/11/20 02:17 112 H 26 H 121/88 08/11/20 02:15 112 H 26 H 08/11/20 02:11 112 H 96 08/11/20 02:02 114 H 26 H 08/11/20 02:00 111 H 26 H 121/88 96 08/11/20 00:53 107 H 26 H 125/88 08/11/20 00:00 36.8 C 108 H 26 H 125/88 96 08/10/20 23:41 108 H 97 08/10/20 23:27 107 H 26 H 97 08/10/20 23:04 114 H 08/10/20 22:00 111 H 26 H 132/85 97 08/10/20 21:49 113 H 26 H 144/85 H 08/10/20 20:33 119 H 26 H 08/10/20 20:25 118 H 26 H 08/10/20 20:21 118 H 95 08/10/20 20:16 117 H 26 H 08/10/20 20:09 117 H 26 H 138/97 H 08/10/20 20:00 37.4 C 117 H 26 H 138/97 H 95 08/10/20 19:57 118 H 26 H 139/93 H 08/10/20 19:56 117 H 26 H 08/10/20 19:55 118 H 26 H 08/10/20 18:00 118 H 26 H 135/85
[2020-08-11] MEDS: INSULIN HUMAN REGULAR (*BKC) 100 UNITS in SODIUM CHLORIDE 0.9% IV 99 ML 8.1 UNITS IV CONT (09:32)
[2020-08-11] MEDS: CISATRACURIUM BESYLATE 200 MG in DEXTROSE 5% 80 ML 9.86 ML IV CONT ×2 (12:11→20:03)
[2020-08-11] MEDS: FENTANYL 2,500MCG/NS250ML(*CRX 2,500 MCG/250 ML BAG 17.5 MCG IV CONT (12:12)
--- NOTE | 2020-08-11 12:13 | WPDINTPN ---
Progress Note: A&P Assessment and Plan (1) Acute respiratory failure with hypoxia: Code(s): J96.01 - Acute respiratory failure with hypoxia Status: Acute Assessment and Plan: Acute respiratory failure requiring BiPAP 06/20, 100% FiO2 -likely related to COVID-19 pneumonia as lot of his emanates and his roommate were tested positive for SARS-CoV-2 PCR -patient negative for SARS-CoV-2 PCR x3 -08/08: Patient failed BiPAP was tachypneic in the 50s to 60s, anxious, pulling on the BiPAP and was intubated -patient on low tidal volume strategy, peep of 12, will wean FiO2 as tolerated, will decrease PEEP to 10 -chest x-ray shows extensive bilateral infiltrates - -continue fentanyl Versed for sedation and Nimbex (try to wean Nimbex of 08/10, patient was tachycardic tachypneic and dropped his saturations and had to be restarted on Nimbex again) -status post azithromycin and ceftriaxone x8 days. ID following (2) Suspected 2019-nCoV infection: Code(s): Z20.822 - Contact with and (suspected) exposure to COVID-19 Status: Acute Assessment and Plan: SARS-CoV-2 PCR negative x3 -appreciate infectious disease following the patient -patient has symptoms of COVID-19 along with elevated LDH, ferritin, D-dimer, CRP -continue droplet, airborne and contact isolation/precautions -continue dexamethasone which was initiated on 08/03/2020 --continue Remdesivir - convalescent plasma cannot be transfused as patient does not have a documented positive SARS-CoV-2 PCR -will monitor inflammatory markers -QuantiFERON gold test was negative (3) SVT (supraventricular tachycardia): Code(s): I47.1 - Supraventricular tachycardia Status: Resolved Assessment and Plan: In the ED on admission patient had an episode of SVT which resolved with adenosine IV x1 -cardiology following the patient -SVT likely secondary to respiratory distress, no further episodes (4) Acute renal failure: Qualifiers: Acute renal failure type: unspecified Qualified Code(s): N17.9 - Acute kidney failure, unspecified Code(s): N17.9 - Acute kidney failure, unspecified Status: Acute Assessment and Plan: Acute kidney injury on admission with creatinine of 1.7, patient given IV fluids, urine output has been adequate, creatinine down to normal on 08/04/2020 -worsening creatinine, hyperkalemia -nephrology was consulted -renal ultrasound 08/10/2020 normal kidneys, no hydronephrosis, diffuse hepatic steatosis -hyperkalemia was treated -urine lytes show prerenal picture, discussed with Nephrology, will give patient IV fluid 75 mL/hour for 1500 mL (5) Hyperglycemia: Code(s): R73.9 - Hyperglycemia, unspecified Status: Acute Assessment and Plan: Hyperglycemia likely related to dexamethasone -continue Accu-Cheks and sliding scale insulin -hemoglobin A1c is 6.8 -patient was significantly hyperglycemic overnight requiring insulin infusion (6) Swelling of right upper extremity: Code(s): M79.89 - Other specified soft tissue disorders Status: Acute Assessment and Plan: Venous Dopplers 08/10/2020 of right upper extremity: Positive for right subclavian, axillary DVT, cephalic SVT. -continue heparin infusion (7) DVT prophylaxis: Code(s): Z29.9 - Encounter for prophylactic measures, unspecified Status: Acute Assessment and Plan: Continue heparin infusion (8) Dietary counseling and surveillance: Code(s): Z71.3 - Dietary counseling and surveillance Status: Acute Assessment and Plan: Stress ulcer prophylaxis: Protonix Tolerating tube feeds Additional Plan Code status: Full code Critical care time spent: 33 minutes Due to a high probability of clinically significant, life threatening deterioration, the patient required my highest level of preparedness to intervene emergently and I personally spent this critical care time directly and personally man
[2020-08-11] MEDS: SODIUM CHLORIDE 0.9% IV 1,000 ML 75 ML IV CONT (12:18)
--- NOTE | 2020-08-11 12:19 | WPDINFPN2 ---
Progress Note: A&P Assessment and Plan (1) Suspected 2019-nCoV infection: Code(s): Z20.822 - Contact with and (suspected) exposure to COVID-19 Status: Acute Assessment and Plan: 1. Dyspnea, probably due to novel coronavirus infection with pneumonia, though no + testing (3 samples). Viral culture in process/ordered. CXR no change. 2. Leg weakness and numbness bilateral finger tips 1-2-3 3. Quantiferon NR. 4. Respiratory failure 5. Hyperglycemia, with mildly abnormal Hgb A1C, possible new diagnosis DM type 2. 6. DVT REC Off Remdeisivir, dexamethasone ongoing. Off antibacterials. Subjective Date/time seen: 08/11/20 12:19 Interval history: sedated and back on paralytic Exam Narrative: Exam Narrative: afebrile Const: General: no acute distress Resp: Effort & Inspection: normal respiratory effort Auscultation: clear to auscultation bilaterally Cardio: Rate: regular rate Rhythm: regular rhythm Heart sounds: no gallops and no murmurs GI: Other: no masses Urinary Catheter: Urinary Catheter: patent and draining and urine clear Skin: General skin exam: normal color and no rashes or lesions noted Objective Data Vital Signs Vital Signs: Vital Signs - 24 hr 08/10/20 13:50 08/10/20 13:58 08/10/20 13:59 Temperature Pulse Rate 119 H 118 H 118 H Respiratory Rate 26 H 26 H Blood Pressure Pulse Oximetry 95 08/10/20 14:00 08/10/20 16:00 08/10/20 17:21 Temperature 37.4 C Pulse Rate 120 H 124 H 123 H Respiratory Rate 26 H 26 H Blood Pressure 132/67 120/85 Pulse Oximetry 95 94 93 08/10/20 18:00 08/10/20 19:55 08/10/20 19:56 Temperature Pulse Rate 118 H 118 H 117 H Respiratory Rate 26 H 26 H 26 H Blood Pressure 135/85 Pulse Oximetry 95 08/10/20 19:57 08/10/20 20:00 08/10/20 20:09 Temperature 37.4 C Pulse Rate 118 H 117 H 117 H Respiratory Rate 26 H 26 H 26 H Blood Pressure 139/93 H 138/97 H 138/97 H Pulse Oximetry 95 08/10/20 20:16 08/10/20 20:21 08/10/20 20:25 Temperature Pulse Rate 117 H 118 H 118 H Respiratory Rate 26 H 26 H Blood Pressure Pulse Oximetry 95 08/10/20 20:33 08/10/20 21:49 08/10/20 22:00 Temperature Pulse Rate 119 H 113 H 111 H Respiratory Rate 26 H 26 H 26 H Blood Pressure 144/85 H 132/85 Pulse Oximetry 97 08/10/20 23:04 08/10/20 23:27 08/10/20 23:41 Temperature Pulse Rate 114 H 107 H 108 H Respiratory Rate 26 H Blood Pressure Pulse Oximetry 97 97 08/11/20 00:00 08/11/20 00:53 08/11/20 02:00 Temperature 36.8 C Pulse Rate 108 H 107 H 111 H Respiratory Rate 26 H 26 H 26 H Blood Pressure 125/88 125/88 121/88 Pulse Oximetry 96 96 08/11/20 02:02 08/11/20 02:11 08/11/20 02:15 Temperature Pulse Rate 114 H 112 H 112 H Respiratory Rate 26 H 26 H Blood Pressure Pulse Oximetry 96 08/11/20 02:17 08/11/20 03:35 08/11/20 03:44 Temperature Pulse Rate 112 H 112 H 111 H Respiratory Rate 26 H 26 H 26 H Blood Pressure 121/88 119/89 Pulse Oximetry 08/11/20 03:46 08/11/20 04:00 08/11/20 05:16 Temperature 36.6 C Pulse Rate 110 H 110 H 106 H Respiratory Rate 26 H 26 H Blood Pressure 120/86 Pulse Oximetry 98 96 08/11/20 06:00 08/11/20 06:32 08/11/20 07:40 Temperature Pulse Rate 107 H 101 H 110 H Respiratory Rate 26 H 26 H 26 H Blood Pressure 114/83 123/86 120/84 Pulse Oximetry 95 08/11/20 07:41 08/11/20 07:42 08/11/20 08:00 Temperature 36.8 C Pulse Rate 110 H 110 H 110 H Respiratory Rate 26 H 26 H 26 H Blood Pressure 109/86 Pulse Oximetry 96 08/11/20 08:30 08/11/20 09:02 08/11/20 09:06 Temperature Pulse Rate 112 H 110 H 111 H Respiratory Rate 26 H 26 H Blood Pressure 109/86 Pulse Oximetry 96 08/11/20 09:10 08/11/20 09:31 08/11/20 10:00 Temperature Pulse Rate 111 H 112 H 113 H Respiratory Rate 26 H 26 H 26 H Blood Pressure 122/87 108/84 Pulse Oximetry 95 08/11/20 11:03 08/11/20 11:16 08/11/20 11:51 Tem
[2020-08-11 13:51] LABS: Partial Thromboplastin Time 74.8 SECONDS (22.3-36.8)
[2020-08-11 18:00] LABS: Glucose Point of Care 183 (65-105)
[2020-08-11 18:00] LABS: Glucose Point of Care 161 (65-105)
[2020-08-11 18:00] LABS: Glucose Point of Care 183 (65-105)
[2020-08-11 18:00] LABS: Glucose Point of Care 140 (65-105)
[2020-08-11 18:00] LABS: Glucose Point of Care 193 (65-105)
[2020-08-11 18:00] LABS: Glucose Point of Care 191 (65-105)
[2020-08-11 18:00] LABS: Glucose Point of Care 191 (65-105)
[2020-08-11 18:00] LABS: Glucose Point of Care 174 (65-105)
[2020-08-11 18:00] LABS: Glucose Point of Care 164 (65-105)
[2020-08-11 19:58] LABS: Glucose Point of Care 141 (65-105)
[2020-08-11] MEDS: INSULIN HUMAN REGULAR (*BKC) 100 UNITS in SODIUM CHLORIDE 0.9% IV 99 ML 10.8 UNITS IV CONT (19:58)
[2020-08-11 19:59] LABS: Glucose Point of Care 159 (65-105)
[2020-08-11 20:12] LABS: Partial Thromboplastin Time 69.5 SECONDS (22.3-36.8)
[2020-08-11] MEDS: HEPARIN SOD/D5W 100 UNITS/ML 25,000 UNITS/250 ML BAG 16 UNITS IV CONT (20:30)
[2020-08-11] MEDS: HEPARIN SODIUM 5,000 UNITS/ML VIAL 3500 UNITS IV PUSH (20:30)
[2020-08-11 22:05] LABS: Glucose Point of Care 184 (65-105)
[2020-08-12] VITALS (55 sets, daily range): BP systolic 100–151; BP diastolic 70–92; PULSE 92–117; RESP 26–91; TEMP 36.6–37.3; O2SAT 88–97
[2020-08-12 00:09] LABS: Glucose Point of Care 153 (65-105)
[2020-08-12] MEDS: SODIUM CHLORIDE 0.9% IV 1,000 ML 75 ML IV CONT (01:02)
[2020-08-12 02:21] LABS: Glucose Point of Care 150 (65-105)
[2020-08-12] MEDS: FENTANYL 2,500MCG/NS250ML(*CRX 2,500 MCG/250 ML BAG 17.5 MCG IV CONT ×2 (02:34→16:40)
[2020-08-12 02:50] LABS: Hematocrit 38.7 % (42.0-52.0); Hemoglobin 12.4 g/dL (14.0-18.0); Mean Corpuscular Volume 90.4 fl (80-100); Mean Platelet Volume 10.2 fl (7.4-10.4); Platelet Count Result 155 k/mm3 (150-375); Red Blood Count 4.28 M/mm3 (4.6-6.20); Red Cell Distribution Width 13.1 % (11.5-14.5); White Blood Count 23.5 K/mm3 (4.5-10.0)
[2020-08-12 03:00] LABS: Alanine Aminotransferase 48 U/L (4-50); Alkaline Phosphatase 118 U/L (38-126); Anion Gap 0 mmol/L (8-16); Aspartate Amino Transferase 46 U/L (17-59); Bilirubin,Total 0.4 mg/dL (0.2-1.3); Blood Urea Nitrogen 47 mg/dL (9-20); Calcium 9.4 mg/dL (8.4-10.2); Carbon Dioxide 37 mmol/L (22-30); Chloride 109 mmol/L (98-107); Estimated CRCL calculation 79 ml/min; Estimated Glomerular Filt Rate > 60; Glucose 146 mg/dL (75-110); Phosphorus 3.3 mg/dL (2.5-4.5); Potassium 4.4 mmol/L (3.4-5.0); Sodium 146 mmol/L (137-145)
[2020-08-12 03:15] LABS: Partial Thromboplastin Time 109.7 SECONDS (22.3-36.8)
[2020-08-12] MEDS: INSULIN HUMAN REGULAR (*BKC) 100 UNITS in SODIUM CHLORIDE 0.9% IV 99 ML 11.7 UNITS IV CONT (03:55)
[2020-08-12] MEDS: CENTRAL LINE FLUSH 10 ML IV PUSH ×2 (03:56→20:00)
[2020-08-12 04:12] LABS: Glucose Point of Care 158 (65-105)
[2020-08-12 05:06] LABS: Alveolar/Arterial O2 Gradient 233.7 mmHg; Base Excess ABG 3.9 mEq/l (+/-2.0); Carboxyhemoglobin 0.3 % THb (0-2.0); Fractional Inspired Oxygen 50 %; Methemoglobin ABG 0.5 %THb (0-1.5); Modified Allen's Test Pass; Oxygen Content ABG 16.7 %vol (16.0-22.0); Oxygen Saturation ABG 92.3 % (95.0-100.0); Oxyhemoglobin 90.8 % THb (90.0-100.0); PCO2 ABG 51.2 mmHg (35.0-45.0); PO2 ABG 65.2 mmHg (80.0-100.0); Reduced Hemoglobin 8.4 %THb (0-5.0); Site Drawn LEFT RADIAL; Total Hemoglobin 13.1 g/dL (12.0-18.0); pH ABG 7.385 (7.350-7.450)
[2020-08-12 05:07] LABS: Arterial Blood Gas PEEP 10 cmH2O; Arterial Blood Gas Tidal Volume 510 ml; Arterial Blood Gas Vent Mode CMV; Arterial Blood Gas Ventilator rate 26 /MIN; Device VENTILATOR
[2020-08-12 05:10] LABS: Glucose Point of Care 159 (65-105)
[2020-08-12] MEDS: CISATRACURIUM BESYLATE 200 MG in DEXTROSE 5% 80 ML 9.86 ML IV CONT ×2 (06:13→17:43)
[2020-08-12 06:19] LABS: Glucose Point of Care 137 (65-105)
[2020-08-12] MEDS: PANTOPRAZOLE SODIUM IV 40 MG VIAL IV PUSH (07:33)
[2020-08-12] MEDS: INSULIN DETEMIR 100 UNITS/ML 30 UNITS SUB-Q ×2 (07:36→20:00)
[2020-08-12 09:04] LABS: Glucose Point of Care 153 (65-105)
[2020-08-12 09:17] LABS: Glucose Point of Care 166 (65-105)
[2020-08-12 10:01] LABS: Glucose Point of Care 155 (65-105)
[2020-08-12 10:12] LABS: Partial Thromboplastin Time 79.2 SECONDS (22.3-36.8)
[2020-08-12 10:46] LABS: Glucose Point of Care 181 (65-105)
--- NOTE | 2020-08-12 10:59 | PCDIET ---
ICU Rounding Note: Patient tolerating Nepro at 50mL/hr goal rate with 30mL water flush every 4 hours. May recommend increasing water flush if sodium further increases. Last recorded weight is 111.4kg which is increased from last review. +I/O. Good urine output. Bowel Motility: Last documented BM on 08/05/20. adding Miralax and Dulcolax prn. Labs Reviewed: Hgb (12.4), Hct (38.7), Glu (146), Na (146), Cl (109), Alb (3.0) Meds Noted: Nimbex, Decadron, Fentanyl, Heparin, IV Aspart, Levemir, Xopenex, Versed, Protonix Additional Notes: RN reports small breakdown on nose. No other skin issues reported. Following daily in ICU rounds. Assessing/reassessing every Sunday/Sunday.
[2020-08-12] MEDS: INSULIN HUMAN REGULAR (*BKC) 100 UNITS in SODIUM CHLORIDE 0.9% IV 99 ML 29.3 UNITS IV CONT (12:35)
[2020-08-12 12:54] LABS: Glucose Point of Care 246 (65-105)
--- NOTE | 2020-08-12 12:56 | WPDINTPN ---
Progress Note: A&P Assessment and Plan (1) Acute respiratory failure with hypoxia: Code(s): J96.01 - Acute respiratory failure with hypoxia Status: Acute Assessment and Plan: Acute respiratory failure requiring BiPAP 06/20, 100% FiO2 -likely related to COVID-19 pneumonia as lot of his emanates and his roommate were tested positive for SARS-CoV-2 PCR -patient negative for SARS-CoV-2 PCR x3 -08/08: Patient failed BiPAP was tachypneic in the 50s to 60s, anxious, pulling on the BiPAP and was intubated -patient on low tidal volume strategy, peep of 10 FiO2 50% -chest x-ray shows extensive bilateral infiltrates - -continue fentanyl Versed for sedation and Nimbex (try to wean Nimbex of 08/10, patient was tachycardic tachypneic and dropped his saturations and had to be restarted on Nimbex again) -will add propofol and hold neuromuscular michael today -status post azithromycin and ceftriaxone x8 days. (2) Suspected 2018-nCoV infection: Code(s): Z20.822 - Contact with and (suspected) exposure to COVID-19 Status: Acute Assessment and Plan: SARS-CoV-2 PCR negative x3 -appreciate infectious disease following the patient -patient has symptoms of COVID-19 along with elevated LDH, ferritin, D-dimer, CRP -continue droplet, airborne and contact isolation/precautions -continue dexamethasone which was initiated on 08/03/2020 --continue Remdesivir - convalescent plasma cannot be transfused as patient does not have a documented positive SARS-CoV-2 PCR -will monitor inflammatory markers -QuantiFERON gold test was negative - will check chest CT when able to (3) SVT (supraventricular tachycardia): Code(s): I47.1 - Supraventricular tachycardia Status: Resolved Assessment and Plan: In the ED on admission patient had an episode of SVT which resolved with adenosine IV x1 -cardiology following the patient -SVT likely secondary to respiratory distress, no further episodes (4) Acute renal failure: Qualifiers: Acute renal failure type: unspecified Qualified Code(s): N17.9 - Acute kidney failure, unspecified Code(s): N17.9 - Acute kidney failure, unspecified Status: Acute Assessment and Plan: Acute kidney injury on admission with creatinine of 1.7, patient given IV fluids, urine output has been adequate, creatinine down to normal on 08/04/2020 -nephrology was consulted -renal ultrasound 08/10/2020 normal kidneys, no hydronephrosis, diffuse hepatic steatosis (5) Hyperglycemia: Code(s): R73.9 - Hyperglycemia, unspecified Status: Acute Assessment and Plan: Hyperglycemia likely related to dexamethasone -continue Accu-Cheks and sliding scale insulin -hemoglobin A1c is 6.8 -patient was significantly hyperglycemic overnight requiring insulin infusion (6) Swelling of right upper extremity: Code(s): M79.89 - Other specified soft tissue disorders Status: Acute Assessment and Plan: Venous Dopplers 08/10/2020 of right upper extremity: Positive for right subclavian, axillary DVT, cephalic SVT. -continue heparin infusion (7) DVT prophylaxis: Code(s): Z29.9 - Encounter for prophylactic measures, unspecified Status: Acute Assessment and Plan: Continue heparin infusion (8) Dietary counseling and surveillance: Code(s): Z71.3 - Dietary counseling and surveillance Status: Acute Assessment and Plan: Stress ulcer prophylaxis: Protonix Tolerating tube feeds Additional Plan Code status: Full code Critical care time spent: 30 minutes Due to a high probability of clinically significant, life threatening deterioration, the patient required my highest level of preparedness to intervene emergently and I personally spent this critical care time directly and personally managing the patient. This critical care time included obtaining a history; examining the patient; pulse oximetry; ordering and review of studies;
[2020-08-12] MEDS: HEPARIN SOD/D5W 100 UNITS/ML 25,000 UNITS/250 ML BAG 14 UNITS IV CONT (13:22)
--- NOTE | 2020-08-12 14:48 | PM.PNNEP ---
Progress Note: A&P Assessment and Plan (1) Acute renal failure: Qualifiers: Acute renal failure type: unspecified Qualified Code(s): N17.9 - Acute kidney failure, unspecified Code(s): N17.9 - Acute kidney failure, unspecified Status: Acute Assessment and Plan: due to infection AND prerenal issues renal ultrasound okay urine electrolytes demonstrate pre-renal azotemia improvement noted with IVF challenge yesterday follow trend of UOP and repeat labs (2) Acute respiratory failure with hypoxia: Code(s): J96.01 - Acute respiratory failure with hypoxia Status: Acute Assessment and Plan: due to COVID-19 versus bacterial infection versus both continue ventilator support wean as tolerated (3) Suspected COVID-19 virus infection: Code(s): Z20.822 - Contact with and (suspected) exposure to COVID-19 Status: Acute Assessment and Plan: testing negative to date x 3 however, s/p remdesivir therapy along with steroids follow-up on viral cultures (4) Pneumonia: Qualifiers: Laterality: bilateral Lung location: unspecified part of lung Pneumonia type: due to unspecified organism Qualified Code(s): J18.9 - Pneumonia, unspecified organism Code(s): J18.9 - Pneumonia, unspecified organism Status: Acute Assessment and Plan: due to COVID-19 versus bacterial infection completed course of IV antibiotics s/p remdesivir and ongoing steroid therapy Infectious Disease following (5) Swelling of right upper extremity: Code(s): M79.89 - Other specified soft tissue disorders Status: Acute Assessment and Plan: due to multiple DVTs on anticagulation (6) SVT (supraventricular tachycardia): Code(s): I47.1 - Supraventricular tachycardia Status: Resolved Assessment and Plan: no further recurrence s/p adenosine in ER Will continue to follow. Subjective Date/time seen: 08/12/20 14:48 Remains on ventilator support and requiring sedation and paralytics; better urine output noted with improvement in renal function with IVF challenge yesterday. Exam Narrative: Exam Narrative: General: ill appearing male intubated/sedated/paralyzed Heart: normal S1 and S2; no rub Lungs: coarse with scatterd rhonchi and rales Abdomen: soft, nontender, nondistended, positive bowel sounds Extremities: no cyanosis or clubbing; no edema Skin: warm and dry Objective Data Vital Signs Vital Signs: Vital Signs Temp Pulse Resp BP Pulse Ox 08/12/20 14:25 117 H 26 H 90 08/12/20 12:55 114 H 26 H 08/12/20 11:44 104 H 26 H 123/75 08/12/20 11:15 97 93 08/12/20 10:40 99 26 H 123/75 08/12/20 10:00 102 H 26 H 126/81 93 08/12/20 09:40 104 H 26 H 121/80 08/12/20 08:52 102 H 26 H 92 08/12/20 08:45 102 H 26 H 136/79 08/12/20 08:00 36.8 C 101 H 26 H 116/81 97 08/12/20 07:41 101 H 26 H 97 08/12/20 07:30 101 H 26 H 118/77 08/12/20 06:13 102 H 26 H 120/81 08/12/20 06:12 102 H 26 H 120/81 08/12/20 06:00 106 H 26 H 120/81 95 08/12/20 05:20 103 H 95 08/12/20 05:01 101 H 26 H 144/83 H 08/12/20 04:58 105 H 26 H 08/12/20 04:53 104 H 26 H 08/12/20 04:00 36.9 C 99 26 H 129/84 96 08/12/20 03:48 98 26 H 08/12/20 03:45 100 26 H 113/81 08/12/20 03:25 98 26 H 97 08/12/20 02:36 104 H 26 H 08/12/20 02:35 101 H 26 H 113/77 08/12/20 02:34 101 H 26 H 08/12/20 02:30 104 H 26 H 08/12/20 02:10 96 26 H 08/12/20 02:00 98 26 H 113/77 96 08/12/20 01:05 98 26 H 105/80 08/12/20 00:17 97 26 H 114/79 08/12/20 00:00 36.6 C 92 26 H 114/79 97 08/11/20 23:28 97 98 08/11/20 22:43 97 08/11/20 22:00 98 26 H 107/81 97 08/11/20 20:20 95 96 08/11/20 20:03 97 26 H 112/81 08/11/20 20:00 36.7 C 95 26 H 112/81 97 08/11/20 18
--- NOTE | 2020-08-12 14:48 | P.PNNP_ITS ---
Progress Note: A&P Assessment and Plan (1) Acute renal failure: Qualifiers: Acute renal failure type: unspecified Qualified Code(s): N17.9 - Acute kidney failure, unspecified Code(s): N17.9 - Acute kidney failure, unspecified Status: Acute Assessment and Plan: * due to infection AND prerenal issues * renal ultrasound okay * urine electrolytes demonstrate pre-renal azotemia * improvement noted with IVF challenge yesterday * follow trend of UOP and repeat labs (2) Acute respiratory failure with hypoxia: Code(s): J96.01 - Acute respiratory failure with hypoxia Status: Acute Assessment and Plan: * due to COVID-19 versus bacterial infection versus both * continue ventilator support * wean as tolerated (3) Suspected COVID-19 virus infection: Code(s): Z20.822 - Contact with and (suspected) exposure to COVID-19 Status: Acute Assessment and Plan: * testing negative to date x 3 * however, s/p remdesivir therapy along with steroids * follow-up on viral cultures (4) Pneumonia: Qualifiers: Laterality: bilateral Lung location: unspecified part of lung Pneumon ia type: due to unspecified organism Qualified Code(s): J18.9 - Pneumonia, unspecified organism Code(s): J18.9 - Pneumonia, unspecified organism Status: Acute Assessment and Plan: * due to COVID-19 versus bacterial infection * completed course of IV antibiotics * s/p remdesivir and ongoing steroid therapy * Infectious Disease following (5) Swelling of right upper extremity: Code(s): M79.89 - Other specified soft tissue disorders Status: Acute Assessment and Plan: * due to multiple DVTs * on anticagulation (6) SVT (supraventricular tachycardia): Code(s): I47.1 - Supraventricular tachycardia Status: Resolved Assessment and Plan: * no further recurrence * s/p adenosine in ER Will continue to follow. Subjective Date/time seen: 08/12/20 14:48 Remains on ventilator support and requiring sedation and paralytics; better urine output noted with improvement in renal function with IVF challenge yesterday. Exam Narrative: Exam Narrative: General: ill appearing male intubated/sedated/paralyzed Heart: normal S1 and S2; no rub Lungs: coarse with scatterd rhonchi and rales Abdomen: soft, nontender, nondistended, positive bowel sounds Extremities: no cyanosis or clubbing; no edema Skin: warm and dry Objective Data Vital Signs Vital Signs: Vital Signs Temp Pulse Resp BP Pulse Ox 08/12/20 14:25 117 H 26 H 90 08/12/20 12:55 114 H 26 H 08/12/20 11:44 104 H 26 H 123/75 08/12/20 11:15 97 93 08/12/20 10:40 99 26 H 123/75 08/12/20 10:00 102 H 26 H 126/81 93 08/12/20 09:40 104 H 26 H 121/80 08/12/20 08:52 102 H 26 H 92 08/12/20 08:45 102 H 26 H 136/79 08/12/20 08:00 36.8 C 101 H 26 H 116/81 97 08/12/20 07:41 101 H 26 H 97 08/12/20 07:30 101 H 26 H 118/77 08/12/20 06:13 102 H 26 H 120/81 08/12/20 06:12 102 H 26 H 120/81 08/12/20 06:00 106 H 26 H 120/81 95 08/12/20 05:20 103 H 95 08/12/20 05:01 101 H 26 H 144/83 H 08/12/20 04:58 105 H 26 H 08/12/20 04:53 104 H 26 H 08/12/20 04:00 36.9 C 99 26 H
[2020-08-12] MEDS: PROPOFOL IV EMULSION 100 ML 13.37 MG IV CONT ×2 (15:23→21:48)
[2020-08-12] MEDS: FUROSEMIDE INJ 40 MG/4 ML VIAL IV PUSH (16:32)
[2020-08-12] MEDS: INSULIN HUMAN REGULAR (*BKC) 100 UNITS in SODIUM CHLORIDE 0.9% IV 99 ML 8.5 UNITS IV CONT (16:38)
[2020-08-12 17:05] LABS: Triglycerides 150 mg/dL (<150)
[2020-08-12 17:12] LABS: Partial Thromboplastin Time 58.4 SECONDS (22.3-36.8)
[2020-08-12] MEDS: HEPARIN SODIUM 5,000 UNITS/ML VIAL 3500 UNITS IV PUSH (17:35)
[2020-08-12 18:51] LABS: Glucose Point of Care 110 (65-105)
[2020-08-12 18:51] LABS: Glucose Point of Care 168 (65-105)
[2020-08-12 18:51] LABS: Glucose Point of Care 210 (65-105)
[2020-08-12 18:51] LABS: Glucose Point of Care 230 (65-105)
[2020-08-12 18:51] LABS: Glucose Point of Care 100 (65-105)
[2020-08-12 18:51] LABS: Glucose Point of Care 90 (65-105)
[2020-08-12 18:51] LABS: Glucose Point of Care 255 (65-105)
[2020-08-12 18:51] LABS: Glucose Point of Care 238 (65-105)
[2020-08-12 20:15] LABS: Glucose Point of Care 140 (65-105)
[2020-08-12 20:51] LABS: Glucose Point of Care 138 (65-105)
[2020-08-12 21:53] LABS: Glucose Point of Care 138 (65-105)
[2020-08-12 23:00] LABS: Glucose Point of Care 167 (65-105)
[2020-08-13] VITALS (36 sets, daily range): BP systolic 102–156; BP diastolic 63–85; PULSE 95–118; RESP 20–30; TEMP 36.4–37.1; O2SAT 90–97
[2020-08-13 00:12] LABS: Glucose Point of Care 172 (65-105)
[2020-08-13] MEDS: INSULIN HUMAN REGULAR (*BKC) 100 UNITS in SODIUM CHLORIDE 0.9% IV 99 ML 18.4 UNITS IV CONT (00:54)
[2020-08-13] MEDS: CISATRACURIUM BESYLATE 200 MG in DEXTROSE 5% 80 ML 12.49 ML IV CONT (01:58)
[2020-08-13 03:06] LABS: Glucose Point of Care 159 (65-105)
[2020-08-13 03:06] LABS: Glucose Point of Care 175 (65-105)
[2020-08-13 03:06] LABS: Glucose Point of Care 158 (65-105)
[2020-08-13 03:45] LABS: Glucose Point of Care 139 (65-105)
[2020-08-13 04:53] LABS: Alveolar/Arterial O2 Gradient 377.2 mmHg; Base Excess ABG 4.1 mEq/l (+/-2.0); Carboxyhemoglobin 0.3 % THb (0-2.0); Fractional Inspired Oxygen 70 %; HCO3 ABG 31.2 mEq/l (22.0-26.0); Methemoglobin ABG 0.7 %THb (0-1.5); Oxygen Content ABG 15.2 %vol (16.0-22.0); Oxygen Saturation ABG 88.1 % (95.0-100.0); Oxyhemoglobin 87.7 % THb (90.0-100.0); PCO2 ABG 59.1 mmHg (35.0-45.0); PO2 ABG 58.4 mmHg (80.0-100.0); PO2 FiO2 Ratio Arterial Blood 0.83 %; Reduced Hemoglobin 11.3 %THb (0-5.0); Total Hemoglobin 12.3 g/dL (12.0-18.0); pH ABG 7.341 (7.350-7.450)
[2020-08-13 04:54] LABS: Device VENTILATOR; Modified Allen's Test Unable to perform; Site Drawn LEFT RADIAL
[2020-08-13 04:55] LABS: Arterial Blood Gas PEEP 10 cmH2O; Arterial Blood Gas Tidal Volume 510 ml; Arterial Blood Gas Vent Mode ASSIST CONTROL; Arterial Blood Gas Ventilator rate 26 /MIN
[2020-08-13 04:56] LABS: Glucose Point of Care 127 (65-105)
[2020-08-13 05:01] LABS: Hematocrit 34.8 % (42.0-52.0); Mean Corpuscular HGB Conc 31.6 g/dl (32-36); Mean Corpuscular Hemoglobin 28.9 pg (26-34); Mean Corpuscular Volume 91.6 fl (80-100); Mean Platelet Volume 10.9 fl (7.4-10.4); Platelet Count Result 155 k/mm3 (150-375); Red Cell Distribution Width 13.4 % (11.5-14.5); White Blood Count 25.2 K/mm3 (4.5-10.0)
[2020-08-13 05:27] LABS: D Dimer 3.48 ug/mL (<0.48)
[2020-08-13 05:35] LABS: CRP 15.7 mg/dL (<1.0)
[2020-08-13 05:36] LABS: Alanine Aminotransferase 279 U/L (4-50); Albumin Level 2.8 g/dL (3.5-5.1); Alkaline Phosphatase 191 U/L (38-126); Anion Gap -2 mmol/L (8-16); Aspartate Amino Transferase 389 U/L (17-59); Bilirubin,Total 0.6 mg/dL (0.2-1.3); Blood Urea Nitrogen 36 mg/dL (9-20); Calcium 8.7 mg/dL (8.4-10.2); Carbon Dioxide 39 mmol/L (22-30); Chloride 108 mmol/L (98-107); Estimated CRCL calculation 97 ml/min; Estimated Glomerular Filt Rate > 60; Glucose 126 mg/dL (75-110); Magnesium 2.4 mg/dL (1.6-2.3); Phosphorus 3.7 mg/dL (2.5-4.5); Potassium 4.5 mmol/L (3.4-5.0); Sodium 145 mmol/L (137-145)
[2020-08-13 06:07] LABS: Partial Thromboplastin Time 87.1 SECONDS (22.3-36.8)
[2020-08-13] MEDS: FENTANYL 2,500MCG/NS250ML(*CRX 2,500 MCG/250 ML BAG 17.5 MCG IV CONT ×2 (06:12→19:52)
[2020-08-13] MEDS: HEPARIN SOD/D5W 100 UNITS/ML 25,000 UNITS/250 ML BAG 16 UNITS IV CONT ×2 (06:18→21:23)
[2020-08-13] MEDS: CENTRAL LINE FLUSH 10 ML IV PUSH ×3 (06:22→19:54)
[2020-08-13] MEDS: PROPOFOL IV EMULSION 100 ML 13.37 MG IV CONT ×3 (06:22→19:51)
[2020-08-13 06:52] LABS: Glucose Point of Care 143 (65-105)
[2020-08-13 06:52] LABS: Glucose Point of Care 121 (65-105)
[2020-08-13 07:15] LABS: Lactate Dehydrogenase 2033 U/L (313-618)
[2020-08-13] MEDS: PANTOPRAZOLE SODIUM IV 40 MG VIAL IV PUSH (08:03)
[2020-08-13 08:32] LABS: Glucose Point of Care 127 (65-105)
[2020-08-13] MEDS: INSULIN HUMAN REGULAR (*BKC) 100 UNITS in SODIUM CHLORIDE 0.9% IV 99 ML 12.3 UNITS IV CONT (09:08)
[2020-08-13 09:14] LABS: Glucose Point of Care 137 (65-105)
[2020-08-13 09:46] LABS: Ferritin > 2000.00 ng/mL (11.1-264)
[2020-08-13 10:23] LABS: Glucose Point of Care 165 (65-105)
--- NOTE | 2020-08-13 10:42 | PCDIET ---
Nutrition Follow-Up Complete: Nutrition Diagnosis: Inadequate oral intake related to oral intubation as evidenced by NPO status. Nutrition Goal: Patient to meet estimated nutritional needs. Goal met. Patient tolerating Nepro at 50mL/hr goal rate with 30mL water flush every 4 hours. Last recorded weight is 107.3 kg which is down from last review, but stable with admission. +I/O Bowel Motility: Last documented BM on 08/05/20. Discussed during rounds - RN to give prn medications for BM. Labs Reviewed: Hgb (11.0), Hct (34.8), Glu (143), Na (145), Alb (2.8), Cl (108), TG (150) Meds Noted: Propofol (rate of 13.37mL/hr provides 352kcal per day), Nimbex, IV Aspart, Xopenex, Versed, Decadron, Fentanyl, Levemir, Protonix, Lasix Additional Notes: Plan to prone patient today. Nose abrasion reported, but no pressure sores. Will continue to monitor with same goal. Nutrition Monitoring and Evaluation: Follow up every Sunday/Sunday. Follow daily in ICU rounds.
--- NOTE | 2020-08-13 11:03 | WPDINTPN ---
Progress Note: A&P Assessment and Plan (1) Acute respiratory failure with hypoxia: Code(s): J96.01 - Acute respiratory failure with hypoxia Status: Acute Assessment and Plan: Acute respiratory failure requiring BiPAP 06/20, 100% FiO2 -likely related to COVID-19 pneumonia as lot of his emanates and his roommate were tested positive for SARS-CoV-2 PCR -patient negative for SARS-CoV-2 PCR x3 -08/08: Patient failed BiPAP was tachypneic in the 50s to 60s, anxious, pulling on the BiPAP and was intubated - -continue fentanyl Versed for sedation and Nimbex - Patient did not tolerate coming off Nimbex infusion yesterday and started a synchronous with the ventilator and desaturation. Propofol was added but did not make any difference -currently on 10 of PEEP and 70% FiO2. Peep increased to 12 and increase respiratory rate to 30 -will try prone ventilation today -will add propofol and hold neuromuscular michael today -status post azithromycin and ceftriaxone x8 days. -Lasix 40 mg IV was given 08/[address] 08/02 IMPRESSION: 1. Diffuse lung disease, consistent with pneumonia versus acute respiratory distress syndrome (ARDS). Some component of pulmonary edema may be present. 2. Moderate emphysema. 3. Small pericardial effusion. 4. Mild mediastinal lymphadenopathy, likely reactive. (2) Suspected 2019-nCoV infection: Code(s): Z20.822 - Contact with and (suspected) exposure to COVID-19 Status: Acute Assessment and Plan: SARS-CoV-2 PCR negative x3 -appreciate infectious disease following the patient -patient has symptoms of COVID-19 along with elevated LDH, ferritin, D-dimer, CRP -continue droplet, airborne and contact isolation/precautions -continue dexamethasone which was initiated on 08/03/2020 --continue Remdesivir - convalescent plasma cannot be transfused as patient does not have a documented positive SARS-CoV-2 PCR -will monitor inflammatory markers -QuantiFERON gold test was negative (3) Acute renal failure: Qualifiers: Acute renal failure type: unspecified Qualified Code(s): N17.9 - Acute kidney failure, unspecified Code(s): N17.9 - Acute kidney failure, unspecified Status: Acute Assessment and Plan: Acute kidney injury on admission with creatinine of 1.7, patient given IV fluids, urine output has been adequate, creatinine down to normal on 08/04/2020 -nephrology was consulted -renal ultrasound 08/10/2020 normal kidneys, no hydronephrosis, diffuse hepatic steatosis (4) Hyperglycemia: Code(s): R73.9 - Hyperglycemia, unspecified Status: Acute Assessment and Plan: Hyperglycemia likely related to dexamethasone -continue Accu-Cheks and sliding scale insulin -hemoglobin A1c is 6.8 -patient was significantly hyperglycemic overnight requiring insulin infusion -increase Lantus to 50 units q.12 hours (5) DVT (deep venous thrombosis): Code(s): I82.409 - Acute embolism and thrombosis of unspecified deep veins of unspecified lower extremity Status: Acute Assessment and Plan: Venous Dopplers 08/10/2020 of right upper extremity: Positive for right subclavian, axillary DVT, cephalic SVT. -continue heparin infusion (6) Dietary counseling and surveillance: Code(s): Z71.3 - Dietary counseling and surveillance Status: Acute Assessment and Plan: Stress ulcer prophylaxis: Protonix Tolerating tube feeds Add p.r.n. MiraLax and Dulcolax for constipation Additional Plan Code status: Full code Critical care time spent: 33 minutes Due to a high probability of clinically significant, life threatening deterioration, the patient required my highest level of preparedness to intervene emergently and I personally spent this critical care time directly and personally managing the patient. This critical care time included obtaining a history; examining the patient; pulse oximetry; ordering and review of studies; arranging urgent treat
[2020-08-13] MEDS: INSULIN DETEMIR 100 UNITS/ML 50 UNITS SUB-Q ×2 (11:30→21:25)
[2020-08-13 11:33] LABS: Glucose Point of Care 170 (65-105)
--- NOTE | 2020-08-13 11:47 | PM.PNNEP ---
Progress Note: A&P Assessment and Plan (1) Acute renal failure: Qualifiers: Acute renal failure type: unspecified Qualified Code(s): N17.9 - Acute kidney failure, unspecified Code(s): N17.9 - Acute kidney failure, unspecified Status: Acute Assessment and Plan: resolving due to infection AND prerenal issues renal ultrasound okay urine electrolytes demonstrate pre-renal azotemia improvement noted with IVF challenge yesterday follow trend of UOP and repeat labs (2) Acute respiratory failure with hypoxia: Code(s): J96.01 - Acute respiratory failure with hypoxia Status: Acute Assessment and Plan: due to COVID-19 versus bacterial infection versus both continue ventilator support wean as tolerated (3) Suspected COVID-19 virus infection: Code(s): Z20.822 - Contact with and (suspected) exposure to COVID-19 Status: Acute Assessment and Plan: testing negative to date x 3 however, s/p remdesivir therapy along with steroids follow-up on viral cultures (4) Pneumonia: Qualifiers: Laterality: bilateral Lung location: unspecified part of lung Pneumonia type: due to unspecified organism Qualified Code(s): J18.9 - Pneumonia, unspecified organism Code(s): J18.9 - Pneumonia, unspecified organism Status: Acute Assessment and Plan: due to COVID-19 versus bacterial infection completed course of IV antibiotics s/p remdesivir and ongoing steroid therapy Infectious Disease following (5) Swelling of right upper extremity: Code(s): M79.89 - Other specified soft tissue disorders Status: Acute Assessment and Plan: due to multiple DVTs on anticagulation (6) SVT (supraventricular tachycardia): Code(s): I47.1 - Supraventricular tachycardia Status: Resolved Assessment and Plan: no further recurrence s/p adenosine in ER Will continue to follow. Subjective Date/time seen: 08/13/20 11:47 No real significant change noted -- remains on ventilator support with use of paralytic to maintain respiratory status; did not tolerated trial of holding nimbex so had to be restarted; continue to make good urine output at this time; no other events overnight or earlier this AM. Exam Narrative: Exam Narrative: General: ill appearing male intubated/sedated/paralyzed Heart: normal S1 and S2; no rub Lungs: coarse with scatterd rhonchi and rales Abdomen: soft, nontender, nondistended, positive bowel sounds Extremities: no cyanosis or clubbing; no edema Skin: warm and intact Objective Data Vital Signs Vital Signs: Vital Signs Temp Pulse Resp BP Pulse Ox 08/13/20 11:17 99 93 08/13/20 10:00 98 26 H 110/64 93 08/13/20 09:42 100 93 08/13/20 08:00 36.4 C 106 H 26 H 119/67 92 08/13/20 07:49 106 H 26 H 92 08/13/20 06:45 107 H 26 H 114/72 08/13/20 06:22 106 H 26 H 08/13/20 06:12 108 H 26 H 08/13/20 06:00 95 26 H 133/80 92 08/13/20 04:55 105 H 90 08/13/20 04:00 36.9 C 109 H 26 H 116/78 90 08/13/20 02:55 114 H 26 H 127/85 08/13/20 02:19 111 H 26 H 08/13/20 02:14 110 H 26 H 92 08/13/20 02:00 37.1 C 109 H 20 120/63 94 08/13/20 01:58 111 H 26 H 138/78 08/13/20 00:00 37.1 C 118 H 26 H 156/81 H 93 08/12/20 23:19 108 H 93 08/12/20 22:51 108 H 26 H 108/72 08/12/20 22:50 109 H 26 H 08/12/20 22:00 108 H 26 H 108/72 94 08/12/20 21:48 108 H 26 H 08/12/20 20:47 108 H 26 H 104/71 08/12/20 20:44 108 H 26 H 08/12/20 20:38 107 H 26 H 08/12/20 20:30 108 H 95 08/12/20 20:00 36.8 C 107 H 26 H 105/71 93 08/12/20 19:56 107 H 26 H 08/12/20 19:55 108 H 26 H 102/70 08/12/20 18:45 113 H 26 H 100/76 08/12/20 18:00 36.8 C 111 H 26 H 107/75 93 Intake/Output Intake/Output: Intake & Output 08/10/20 08/11/20 08/12/20
[2020-08-13] MEDS: CISATRACURIUM BESYLATE 200 MG in DEXTROSE 5% 80 ML 11.84 ML IV CONT (11:57)
[2020-08-13] MEDS: BISACODYL 10 MG SUPPOSITORY RECTAL (12:39)
[2020-08-13 13:02] LABS: Glucose Point of Care 163 (65-105)
[2020-08-13 14:21] LABS: Glucose Point of Care 143 (65-105)
--- NOTE | 2020-08-13 15:16 | WPDINFPN2 ---
Progress Note: A&P Assessment and Plan (1) Suspected 2019-nCoV infection: Code(s): Z20.822 - Contact with and (suspected) exposure to COVID-19 Status: Acute Assessment and Plan: 1. Dyspnea, probably due to novel coronavirus infection with pneumonia, though no + testing (3 samples). 2. Leg weakness and numbness bilateral finger tips 1-2-3 3. Quantiferon NR. 4. Respiratory failure 5. Hyperglycemia, with mildly abnormal Hgb A1C, possible new diagnosis DM type 2. 6. DVT REC Off Remdeisivir, dexamethasone ongoing day # 11, length of treatment at our discretion. Off antibacterials. Nothing else to add, call if other Qs Subjective Date/time seen: 08/13/20 15:16 Interval history: paralyzed and sedated, on vent Exam Narrative: Exam Narrative: afebrile Const: Other: prone position Resp: Effort & Inspection: normal respiratory effort Auscultation: clear to auscultation bilaterally Cardio: Rate: tachycardic Rhythm: regular rhythm GI: Other: flanks have no masses Skin: General skin exam: normal color and no rashes or lesions noted Other: feet and hands are well perfused by inspection and palpation Objective Data Vital Signs Vital Signs: Vital Signs - 24 hr 08/12/20 15:23 08/12/20 15:26 08/12/20 16:00 Temperature Pulse Rate 114 H 113 H 114 H Respiratory Rate 26 H 26 H 26 H Blood Pressure 140/88 115/79 Pulse Oximetry 88 L 08/12/20 16:20 08/12/20 16:40 08/12/20 17:43 Temperature Pulse Rate 114 H 113 H 111 H Respiratory Rate 26 H 26 H 26 H Blood Pressure 115/79 107/72 Pulse Oximetry 08/12/20 17:50 08/12/20 18:00 08/12/20 18:45 Temperature 36.8 C Pulse Rate 111 H 111 H 113 H Respiratory Rate 26 H 26 H Blood Pressure 107/75 100/76 Pulse Oximetry 94 93 08/12/20 19:55 08/12/20 19:56 08/12/20 20:00 Temperature 36.8 C Pulse Rate 108 H 107 H 107 H Respiratory Rate 26 H 26 H 26 H Blood Pressure 102/70 105/71 Pulse Oximetry 93 08/12/20 20:30 08/12/20 20:38 08/12/20 20:44 Temperature Pulse Rate 108 H 107 H 108 H Respiratory Rate 26 H 26 H Blood Pressure Pulse Oximetry 95 08/12/20 20:47 08/12/20 21:48 08/12/20 22:00 Temperature Pulse Rate 108 H 108 H 108 H Respiratory Rate 26 H 26 H 26 H Blood Pressure 104/71 108/72 Pulse Oximetry 94 08/12/20 22:50 08/12/20 22:51 08/12/20 23:19 Temperature Pulse Rate 109 H 108 H 108 H Respiratory Rate 26 H 26 H Blood Pressure 108/72 Pulse Oximetry 93 08/13/20 00:00 08/13/20 01:58 08/13/20 02:00 Temperature 37.1 C 37.1 C Pulse Rate 118 H 111 H 109 H Respiratory Rate 26 H 26 H 20 Blood Pressure 156/81 H 138/78 120/63 Pulse Oximetry 93 94 08/13/20 02:14 08/13/20 02:19 08/13/20 02:55 Temperature Pulse Rate 110 H 111 H 114 H Respiratory Rate 26 H 26 H 26 H Blood Pressure 127/85 Pulse Oximetry 92 08/13/20 04:00 08/13/20 04:55 08/13/20 06:00 Temperature 36.9 C Pulse Rate 109 H 105 H 95 Respiratory Rate 26 H 26 H Blood Pressure 116/78 133/80 Pulse Oximetry 90 90 92 08/13/20 06:12 08/13/20 06:22 08/13/20 06:45 Temperature Pulse Rate 108 H 106 H 107 H Respiratory Rate 26 H 26 H 26 H Blood Pressure 114/72 Pulse Oximetry 08/13/20 07:49 08/13/20 08:00 08/13/20 09:42 Temperature 36.4 C Pulse Rate 106 H 106 H 100 Respiratory Rate 26 H 26 H Blood Pressure 119/67 Pulse Oximetry 92 92 93 08/13/20 10:00 08/13/20 11:17 08/13/20 11:57 Temperature Pulse Rate 98 99 98 Respiratory Rate 26 H 30 H Blood Pressure 110/64 104/70 Pulse Oximetry 93 93 08/13/20 12:00 08/13/20 12:01 08/13/20 12:58 Temperature 36.6 C Pulse Rate 98 96 101 H Respiratory Rate 26 H 30 H 30 H Blood Pressure 110/64 102/73 Pulse Oximetry 93 08/13/20 14:00 08/13/20 14:07 08/13/20 14:08 Temperature Pulse Rate 103 H 101 H 101 H Respiratory Rate 30 H 30 H Blood Pressure 108/74 Pulse Oximetry 96 94 Intake/Output Intake/Output: Intake & Out
[2020-08-13] MEDS: INSULIN HUMAN REGULAR (*BKC) 100 UNITS in SODIUM CHLORIDE 0.9% IV 99 ML 15 UNITS IV CONT (15:36)
[2020-08-13 15:39] LABS: Glucose Point of Care 154 (65-105)
[2020-08-13 17:03] LABS: Glucose Point of Care 153 (65-105)
[2020-08-13] MEDS: CISATRACURIUM BESYLATE 200 MG in DEXTROSE 5% 80 ML 15.13 ML IV CONT (18:27)
[2020-08-13 18:34] LABS: Glucose Point of Care 165 (65-105)
[2020-08-13 18:35] LABS: Chloride Rand Ur 32 mmol/L (32-290); Chloride/Creatinine Rand Ur 31 (23-275); Creatinine Random Urine 104 mg/dL (20-320)
[2020-08-13 21:03] LABS: Glucose Point of Care 147 (65-105)
[2020-08-13 21:03] LABS: Glucose Point of Care 155 (65-105)
[2020-08-13 22:57] LABS: Glucose Point of Care 82 (65-105)
[2020-08-13 22:57] LABS: Glucose Point of Care 126 (65-105)
[2020-08-14] VITALS (44 sets, daily range): BP systolic 105–176; BP diastolic 69–95; PULSE 100–135; RESP 30–35; TEMP 36.8–37.6; O2SAT 90–100
[2020-08-14] MEDS: INSULIN HUMAN REGULAR (*BKC) 100 UNITS in SODIUM CHLORIDE 0.9% IV 99 ML 15.2 UNITS IV CONT (00:10)
[2020-08-14] MEDS: CISATRACURIUM BESYLATE 200 MG in DEXTROSE 5% 80 ML 13.15 ML IV CONT ×2 (00:10→08:37)
[2020-08-14] MEDS: PROPOFOL IV EMULSION 100 ML 13.37 MG IV CONT ×2 (03:20→09:44)
[2020-08-14 04:29] LABS: Alveolar/Arterial O2 Gradient 376.4 mmHg; Base Excess ABG 7.3 mEq/l (+/-2.0); Carboxyhemoglobin 0.3 % THb (0-2.0); Device VENTILATOR; Fractional Inspired Oxygen 70 %; HCO3 ABG 33.9 mEq/l (22.0-26.0); Methemoglobin ABG 0.6 %THb (0-1.5); Modified Allen's Test Unable to perform; Oxygen Saturation ABG 90.3 % (95.0-100.0); Oxyhemoglobin 88.1 % THb (90.0-100.0); PCO2 ABG 57.9 mmHg (35.0-45.0); PO2 ABG 60.5 mmHg (80.0-100.0); PO2 FiO2 Ratio Arterial Blood 0.86 %; Site Drawn LEFT RADIAL; Total Hemoglobin 12.1 g/dL (12.0-18.0); pH ABG 7.386 (7.350-7.450)
[2020-08-14 04:30] LABS: Arterial Blood Gas PEEP 12 cmH2O; Arterial Blood Gas Tidal Volume 510 ml; Arterial Blood Gas Vent Mode ASSIST CONTROL; Arterial Blood Gas Ventilator rate 30 /MIN
[2020-08-14] MEDS: CENTRAL LINE FLUSH 10 ML IV PUSH ×2 (05:04→15:06)
[2020-08-14 05:18] LABS: Glucose Point of Care 164 (65-105)
[2020-08-14 05:18] LABS: Glucose Point of Care 155 (65-105)
[2020-08-14 05:18] LABS: Glucose Point of Care 174 (65-105)
[2020-08-14 05:18] LABS: Glucose Point of Care 167 (65-105)
[2020-08-14 05:18] LABS: Glucose Point of Care 175 (65-105)
[2020-08-14 05:28] LABS: Mean Corpuscular HGB Conc 32.4 g/dl (32-36); Mean Corpuscular Hemoglobin 29.6 pg (26-34); Mean Corpuscular Volume 91.6 fl (80-100); Mean Platelet Volume 11.3 fl (7.4-10.4); Platelet Count Result 147 k/mm3 (150-375); Red Blood Count 3.71 M/mm3 (4.6-6.20); Red Cell Distribution Width 13.3 % (11.5-14.5); White Blood Count 28.6 K/mm3 (4.5-10.0)
[2020-08-14 05:41] LABS: Partial Thromboplastin Time 54.3 SECONDS (22.3-36.8)
[2020-08-14 05:46] LABS: Alanine Aminotransferase 271 U/L (4-50); Albumin Level 2.9 g/dL (3.5-5.1); Alkaline Phosphatase 218 U/L (38-126); Aspartate Amino Transferase 201 U/L (17-59); Bilirubin,Total 0.5 mg/dL (0.2-1.3); Blood Urea Nitrogen 30 mg/dL (9-20); Calcium 8.7 mg/dL (8.4-10.2); Carbon Dioxide > 40 mmol/L (22-30); Chloride 105 mmol/L (98-107); Estimated CRCL calculation 95 ml/min; Estimated Glomerular Filt Rate > 60; Glucose 167 mg/dL (75-110); Magnesium 2.1 mg/dL (1.6-2.3); Potassium 4.6 mmol/L (3.4-5.0); Sodium 139 mmol/L (137-145)
[2020-08-14] MEDS: INSULIN HUMAN REGULAR (*BKC) 100 UNITS in SODIUM CHLORIDE 0.9% IV 99 ML 17.8 UNITS IV CONT (06:46)
[2020-08-14] MEDS: HEPARIN SODIUM 5,000 UNITS/ML VIAL 3500 UNITS IV PUSH (06:54)
[2020-08-14 07:10] LABS: Glucose Point of Care 171 (65-105)
[2020-08-14 07:10] LABS: Glucose Point of Care 150 (65-105)
[2020-08-14] MEDS: PANTOPRAZOLE SODIUM IV 40 MG VIAL IV PUSH (09:00)
[2020-08-14] MEDS: FENTANYL 2,500MCG/NS250ML(*CRX 2,500 MCG/250 ML BAG 17.5 MCG IV CONT (09:46)
[2020-08-14 09:52] LABS: Glucose Point of Care 138 (65-105)
[2020-08-14 09:52] LABS: Glucose Point of Care 173 (65-105)
[2020-08-14 10:53] LABS: Glucose Point of Care 120 (65-105)
[2020-08-14] MEDS: INSULIN DETEMIR 100 UNITS/ML 50 UNITS SUB-Q (11:36)
[2020-08-14] MEDS: HEPARIN SOD/D5W 100 UNITS/ML 25,000 UNITS/250 ML BAG 18 UNITS IV CONT (11:36)
[2020-08-14] MEDS: METOPROLOL TARTRATE INJ 5 MG/5 ML VIAL IV PUSH ×2 (11:37→17:09)
[2020-08-14 11:42] LABS: Glucose Point of Care 133 (65-105)
[2020-08-14 12:18] LABS: Alveolar/Arterial O2 Gradient 475.8 mmHg; Fractional Inspired Oxygen 100 %; HCO3 ABG 42.1 mEq/l (22.0-26.0); Oxygen Content ABG 16.4 %vol (16.0-22.0); Oxygen Saturation ABG 90.1 % (95.0-100.0); Oxyhemoglobin 89.8 % THb (90.0-100.0); PO2 ABG 85.7 mmHg (80.0-100.0); PO2 FiO2 Ratio Arterial Blood 0.86 %; Total Hemoglobin 12.9 g/dL (12.0-18.0)
[2020-08-14 12:24] LABS: pH ABG 7.062 (7.350-7.450)
[2020-08-14 12:25] LABS: Device VENTILATOR; Modified Allen's Test Pass; PCO2 ABG 151.5 mmHg (35.0-45.0); Site Drawn LEFT RADIAL
[2020-08-14 12:26] LABS: Arterial Blood Gas PEEP 8 cmH2O; Arterial Blood Gas Vent Mode PRESSURE CONTROL
[2020-08-14 12:27] LABS: Arterial Blood Gas Ventilator rate 35 /MIN
[2020-08-14 12:28] LABS: Peak Inspiratory Pressure 32 cmH2O
--- NOTE | 2020-08-14 13:07 | PM.IMPN ---
Progress Note: A&P Assessment and Plan (1) ARDS (adult respiratory distress syndrome): Code(s): J80 - Acute respiratory distress syndrome Status: Acute Assessment and Plan: On nimbex drip and ventilator (2) Suspected COVID-19 virus infection: Code(s): Z20.822 - Contact with and (suspected) exposure to COVID-19 Status: Acute Assessment and Plan: Covid negative, awaiting GOLD test (3) Hyperglycemia: Code(s): R73.9 - Hyperglycemia, unspecified Status: Acute Assessment and Plan: Pt is on determir BID Additional Plan ARF continue to monitor kidneyfunction, creat is nl, Subjective Date/time seen: 08/14/20 13:07 Interval history: male with known HTN and hyperlipidemia who was [facility] the [facility] secondary to increased shortness of breath and respiratory distress tonight. Intubated in ICU, treated for covid pneumonia. on a Nimbex drip Review of Systems Review of Systems: All systems reviewed & are unremarkable except as noted in HPI and below Exam Narrative: Exam Narrative: Exam Narrative: Pt is on a ventilator intubated in icu Neuro sedated and paralysed Extremities no edema Objective Data Vital Signs Vital Signs: Vital Signs - 24 hr 08/13/20 14:00 08/13/20 14:07 08/13/20 14:08 Temperature Pulse Rate 103 H 101 H 101 H Respiratory Rate 30 H 30 H Blood Pressure 108/74 Pulse Oximetry 96 94 08/13/20 16:00 08/13/20 17:13 08/13/20 18:00 Temperature 36.9 C 36.5 C Pulse Rate 107 H 102 H 103 H Respiratory Rate 30 H 30 H Blood Pressure 108/72 104/67 Pulse Oximetry 96 96 95 08/13/20 18:27 08/13/20 19:50 08/13/20 19:51 Temperature Pulse Rate 103 H 101 H 102 H Respiratory Rate 30 H Blood Pressure 104/67 Pulse Oximetry 96 08/13/20 19:52 08/13/20 20:00 08/13/20 20:20 Temperature 36.7 C Pulse Rate 102 H 101 H 103 H Respiratory Rate 30 H 30 H 30 H Blood Pressure 117/68 Pulse Oximetry 97 08/13/20 21:31 08/13/20 22:00 08/13/20 22:55 Temperature Pulse Rate 105 H 102 H 100 Respiratory Rate 30 H 30 H Blood Pressure 105/71 103/69 Pulse Oximetry 95 94 08/14/20 00:00 08/14/20 00:10 08/14/20 00:52 Temperature 36.9 C Pulse Rate 100 102 H 108 H Respiratory Rate 30 H Blood Pressure 105/69 105/69 Pulse Oximetry 95 08/14/20 00:58 08/14/20 02:00 08/14/20 02:24 Temperature Pulse Rate 108 H 111 H 115 H Respiratory Rate 30 H 30 H Blood Pressure 136/81 Pulse Oximetry 93 93 08/14/20 02:31 08/14/20 03:20 08/14/20 04:00 Temperature 36.8 C Pulse Rate 115 H 121 H 124 H Respiratory Rate 30 H 30 H 30 H Blood Pressure 138/78 Pulse Oximetry 93 08/14/20 04:39 08/14/20 06:00 08/14/20 08:00 Temperature 37.4 C Pulse Rate 125 H 124 H 110 H Respiratory Rate 30 H 35 H Blood Pressure 125/81 129/84 Pulse Oximetry 93 92 96 08/14/20 08:37 08/14/20 09:44 08/14/20 09:46 Temperature Pulse Rate 123 H 128 H 124 H Respiratory Rate 30 H 30 H 30 H Blood Pressure 108/88 Pulse Oximetry 08/14/20 09:54 08/14/20 10:00 08/14/20 10:41 Temperature Pulse Rate 120 H 132 H 134 H Respiratory Rate 32 H 35 H Blood Pressure 134/90 176/95 H Pulse Oximetry 96 08/14/20 11:37 08/14/20 11:38 08/14/20 11:39 Temperature Pulse Rate 134 H 134 H 134 H Respiratory Rate 35 H 35 H Blood Pressure Pulse Oximetry 08/14/20 11:42 08/14/20 11:53 08/14/20 12:00 Temperature 37.4 C Pulse Rate 134 H 110 H 112 H Respiratory Rate 35 H 35 H 35 H Blood Pressure 162/89 H 162/89 H Pulse Oximetry 96 97 08/14/20 12:10 08/14/20 12:52 Temperature Pulse Rate 126 H 120 H Respiratory Rate 35 H Blood Pressure 171/90 H Pulse Oximetry 90 Intake/Output Intake/Output: Intake & Output 08/11/20 08/12/20 08/13/20 08/14/20 23:59 23:59 23:59 23:59 Intake Total 3358.9 3129.1 3052.2 1629.8 Output
[2020-08-14 13:10] LABS: Glucose Point of Care 141 (65-105)
[2020-08-14 13:15] LABS: Partial Thromboplastin Time 76.3 SECONDS (22.3-36.8)
--- NOTE | 2020-08-14 14:21 | WPDINTPN ---
Progress Note: A&P Assessment and Plan (1) Acute respiratory failure with hypoxia: Code(s): J96.01 - Acute respiratory failure with hypoxia Status: Acute Assessment and Plan: Acute respiratory failure requiring BiPAP 06/20, 100% FiO2 -likely related to COVID-19 pneumonia as lot of his emanates and his roommate were tested positive for SARS-CoV-2 PCR -patient negative for SARS-CoV-2 PCR x3 -08/08: Patient failed BiPAP was tachypneic in the 50s to 60s, anxious, pulling on the BiPAP and was intubated - -continue fentanyl Versed for sedation and Nimbex - Patient did not tolerate coming off Nimbex infusion yesterday and started a synchronous with the ventilator and desaturation. Propofol was added but did not make any difference -currently on 10 of PEEP and 70% FiO2. Peep increased to 12 and increase respiratory rate to 30 -will try prone ventilation today -will add propofol and hold neuromuscular michael today -status post azithromycin and ceftriaxone x8 days. -Lasix 40 mg IV was given 08/[address] 08/02 IMPRESSION: 1. Diffuse lung disease, consistent with pneumonia versus acute respiratory distress syndrome (ARDS). Some component of pulmonary edema may be present. 2. Moderate emphysema. 3. Small pericardial effusion. 4. Mild mediastinal lymphadenopathy, likely reactive. (2) Suspected 2019-nCoV infection: Code(s): Z20.822 - Contact with and (suspected) exposure to COVID-19 Status: Acute Assessment and Plan: SARS-CoV-2 PCR negative x3 -appreciate infectious disease following the patient -patient has symptoms of COVID-19 along with elevated LDH, ferritin, D-dimer, CRP -continue droplet, airborne and contact isolation/precautions -continue dexamethasone which was initiated on 08/03/2020 --continue Remdesivir - convalescent plasma cannot be transfused as patient does not have a documented positive SARS-CoV-2 PCR -will monitor inflammatory markers -QuantiFERON gold test was negative (3) Acute renal failure: Qualifiers: Acute renal failure type: unspecified Qualified Code(s): N17.9 - Acute kidney failure, unspecified Code(s): N17.9 - Acute kidney failure, unspecified Status: Acute Assessment and Plan: Acute kidney injury on admission with creatinine of 1.7, patient given IV fluids, urine output has been adequate, creatinine down to normal on 08/04/2020 -nephrology was consulted -renal ultrasound 08/10/2020 normal kidneys, no hydronephrosis, diffuse hepatic steatosis (4) Hyperglycemia: Code(s): R73.9 - Hyperglycemia, unspecified Status: Acute Assessment and Plan: Hyperglycemia likely related to dexamethasone -continue Accu-Cheks and sliding scale insulin -hemoglobin A1c is 6.8 -patient was significantly hyperglycemic overnight requiring insulin infusion -increase Lantus to 50 units q.12 hours (5) DVT (deep venous thrombosis): Code(s): I82.409 - Acute embolism and thrombosis of unspecified deep veins of unspecified lower extremity Status: Acute Assessment and Plan: Venous Dopplers 08/10/2020 of right upper extremity: Positive for right subclavian, axillary DVT, cephalic SVT. -continue heparin infusion (6) Dietary counseling and surveillance: Code(s): Z71.3 - Dietary counseling and surveillance Status: Acute Assessment and Plan: Stress ulcer prophylaxis: Protonix Tolerating tube feeds Add p.r.n. MiraLax and Dulcolax for constipation (7) ARDS (adult respiratory distress syndrome): Code(s): J80 - Acute respiratory distress syndrome Status: Acute Assessment and Plan: Not responding to current mechanical ventilation therapy. Current vent settings are tidal volume 450/30/100%/peep of 12. His peak inspiratory pressures on the settings are greater than 80. The patient is now a candidate for ECMO treatment and I have spoken to cardiothoracic surgery at [facility] who has graciously ac
--- NOTE | 2020-08-14 14:28 | P.OP_ITS ---
Procedure Note - Detailed Date of procedure: 08/14/20 Pre-op diagnosis: Acute hypoxemic respiratory failure, Pneumonia, Post-op diagnosis: same Procedure performed: Endotracheal tube exchanged over a tube exchanger. Description of procedure: The patient had very high peak airway pressures once he was switched from prone prone positioning to supine positioning this morning. It was felt that possibly a bronchus plug may have been causing his high peak airway pressures. Hence his endotracheal tube was changed over a tube exchanger without any difficulty. The endotracheal tube was secured at 28 cm and was later confirmed by a postprocedure chest x-ray showing the ET to 4 cm above the shoaib. There were no complications. Unfortunately peak airway pressures remained high and there was no obvious bronchus plug noted in the old endotr acheal tube. Surgeon: Katelyn Barrera MD Disposition: ICU
[2020-08-14 14:54] LABS: Base Excess ABG 2.7 mEq/l (+/-2.0); Fractional Inspired Oxygen 100 %; HCO3 ABG 31.4 mEq/l (22.0-26.0); Oxygen Content ABG 16.1 %vol (16.0-22.0); Oxygen Saturation ABG 95.3 % (95.0-100.0); Oxyhemoglobin 94.3 % THb (90.0-100.0); PO2 ABG 88.8 mmHg (80.0-100.0); PO2 FiO2 Ratio Arterial Blood 0.89 %; Total Hemoglobin 12.1 g/dL (12.0-18.0)
[2020-08-14 14:56] LABS: Device VENTILATOR; Modified Allen's Test Pass; PCO2 ABG 70.2 mmHg (35.0-45.0); Site Drawn LEFT RADIAL; pH ABG 7.268 (7.350-7.450)
[2020-08-14 14:57] LABS: Arterial Blood Gas PEEP 12 cmH2O; Arterial Blood Gas Tidal Volume 450 ml; Arterial Blood Gas Vent Mode CMV; Arterial Blood Gas Ventilator rate 30 /MIN
[2020-08-14] MEDS: INSULIN HUMAN REGULAR (*BKC) 100 UNITS in SODIUM CHLORIDE 0.9% IV 99 ML 15.6 UNITS IV CONT (15:04)
[2020-08-14] MEDS: CISATRACURIUM BESYLATE 200 MG in DEXTROSE 5% 80 ML 16.44 ML IV CONT (16:54)
[2020-08-14] MEDS: ACETAMINOPHEN 325 MG TABLET 650 MG PO (16:58)
[2020-08-14 17:04] LABS: Glucose Point of Care 177 (65-105)
[2020-08-14 17:04] LABS: Glucose Point of Care 158 (65-105)
--- NOTE | 2020-08-14 17:10 | PM.PNNEP ---
Progress Note: A&P Assessment and Plan (1) Acute renal failure: Qualifiers: Acute renal failure type: unspecified Qualified Code(s): N17.9 - Acute kidney failure, unspecified Code(s): N17.9 - Acute kidney failure, unspecified Status: Acute Assessment and Plan: resolving/resolved due to infection AND prerenal issues renal ultrasound okay urine electrolytes demonstrate pre-renal azotemia follow trend of UOP and repeat labs (2) Acute respiratory failure with hypoxia: Code(s): J96.01 - Acute respiratory failure with hypoxia Status: Acute Assessment and Plan: due to COVID-19 versus bacterial infection versus both continue ventilator support wean as tolerated (3) Suspected COVID-19 virus infection: Code(s): Z20.822 - Contact with and (suspected) exposure to COVID-19 Status: Acute Assessment and Plan: testing negative to date x 3 however, s/p remdesivir therapy along with steroids follow-up on viral cultures (4) Pneumonia: Qualifiers: Laterality: bilateral Lung location: unspecified part of lung Pneumonia type: due to unspecified organism Qualified Code(s): J18.9 - Pneumonia, unspecified organism Code(s): J18.9 - Pneumonia, unspecified organism Status: Acute Assessment and Plan: due to COVID-19 versus bacterial infection completed course of IV antibiotics s/p remdesivir and ongoing steroid therapy Infectious Disease following (5) Swelling of right upper extremity: Code(s): M79.89 - Other specified soft tissue disorders Status: Acute Assessment and Plan: due to multiple DVTs on anticoagulation (6) SVT (supraventricular tachycardia): Code(s): I47.1 - Supraventricular tachycardia Status: Resolved Assessment and Plan: no further recurrence s/p adenosine in ER Will continue to follow. Subjective Date/time seen: 08/14/20 17:10 Continues with ventilator support at this time; remains hemodynamically stable; ETT tube changed on the assumption of mucus plug earlier today; no other acute issues/events overnight or earlier this AM; no apparent distress noted. Exam Narrative: Exam Narrative: General: ill appearing male intubated/sedated/paralyzed Heart: normal S1 and S2; no rub Lungs: coarse with scatterd rhonchi and rales Abdomen: soft, nontender, nondistended, positive bowel sounds Extremities: no cyanosis or clubbing; no edema Skin: warm and intact Objective Data Vital Signs Vital Signs: Vital Signs Temp Pulse Resp BP Pulse Ox 08/14/20 17:09 124 H 08/14/20 16:58 37.6 C 124 H 30 H 114/85 100 08/14/20 16:54 125 H 30 H 114/85 08/14/20 16:00 124 H 30 H 98 08/14/20 15:50 125 H 30 H 114/85 08/14/20 15:08 124 H 30 H 08/14/20 15:07 126 H 30 H 08/14/20 15:06 124 H 116/84 08/14/20 14:55 125 H 30 H 08/14/20 14:41 130 H 30 H 98 08/14/20 14:00 134 H 30 H 118/83 96 08/14/20 12:52 120 H 35 H 171/90 H 08/14/20 12:10 126 H 90 08/14/20 12:00 111 H 35 H 97 08/14/20 11:53 37.4 C 110 H 35 H 162/89 H 96 08/14/20 11:42 134 H 35 H 162/89 H 08/14/20 11:39 134 H 35 H 08/14/20 11:38 134 H 35 H 08/14/20 11:37 134 H 08/14/20 10:41 134 H 176/95 H 08/14/20 10:15 135 H 100 08/14/20 10:05 130 H 30 H 08/14/20 10:00 132 H 35 H 134/90 96 08/14/20 09:54 120 H 32 H 08/14/20 09:46 124 H 30 H 08/14/20 09:44 128 H 30 H 08/14/20 08:37 123 H 30 H 108/88 08/14/20 08:00 37.4 C 110 H 35 H 129/84 96 08/14/20 06:00 124 H 30 H 125/81 92 08/14/20 04:39 125 H 93 08/14/20 04:00 36.8 C 124 H 30 H 138/78 93 08/14/20 03:20 121 H 30 H 08/14/20 02:31 115 H 30 H 08/14/20 02:24 115 H 30 H 93 08/14/20 02:00 111 H 30 H 136/81 93 08/14/20 00:58 108 H 08/14/20 00:52 108 H 07/18
[2020-08-14 18:27] LABS: Glucose Point of Care 127 (65-105)
[2020-08-14 18:42] LABS: Partial Thromboplastin Time 85.1 SECONDS (22.3-36.8)
[2020-08-14 22:01] LABS: Glucose Point of Care 92 (65-105)
--- NOTE | 2020-09-25 14:36 | PM.DS ---
DS: Admitting Diagnosis Admitting Diagnosis Admitting Diagnosis: DISCHARGE SUMMARY FROM 08/14/2020 DS: Discharge Diagnosis Discharge Diagnosis (1) ARDS (adult respiratory distress syndrome): Code(s): J80 - Acute respiratory distress syndrome Status: Acute Assessment and Plan: On nimbex drip and ventilator, pt had tube exchanger and transfer to [facility] for ECMO. (2) Suspected COVID-19 virus infection: Code(s): Z20.822 - Contact with and (suspected) exposure to COVID-19 Status: Acute Assessment and Plan: Covid negative, awaiting GOLD test (3) Hyperglycemia: Code(s): R73.9 - Hyperglycemia, unspecified Status: Acute Assessment and Plan: Pt is on determir BID DS: Summary Hospital Course Hospital Course: Pt with covid pneumonia intubated on nimbex drip, ICU decided pt needs transfer to higher level of care [facility].The patient is now a candidate for ECMO treatment and I have spoken to cardiothoracic surgery at [facility] who has graciously accepted him to be transferred. Time Spent with Patient Time attestation: Total time spent providing and/or coordinating discharge services:40 minutes on day of discharge Exam Narrative: Exam Narrative: Exam Narrative: Pt is on a ventilator intubated in icu Neuro sedated and paralysed Extremities no edema Discharge Plan Discharge Attending physician on discharge: Maxine Munoz Consulting providers: Pino Pineda ; Oriana Ocampo ; Pedrito Valencia ; Jasmina Lindsay ; Alec Flores ; Franko Self ; Tasneem Mims V. ; Eliu Chacon ; Raj Wilson ; Jair Enamorado ; Kris Markham ; Cas Coats V. Discharging Clinician: Maxine Munoz Anticipated Discharge Date/Time: 10/12/20 09:47 Patient Disposition: Acute Care Hospital Patient Instructions: Community Acquired Pneumonia (GEN), How To Wash Your Hands (DC), COVID-19 (Coronavirus Disease 2019) (DC), COVID-19 and Chronic Health Conditions (DC), Face Coverings (Masks) and COVID-19 (DC) Discharge Medications: Held tamsulosin 0.4 mg Capsule 0.4 mg PO DAILY RF: 0 Hold Instructions: Resume on 10/11/20. amlodipine 10 mg Tablet 10 mg PO DAILY RF: 0 Hold Instructions: Resume on 10/11/20. simvastatin 20 mg Tablet 20 mg PO HS RF: 0 Hold Instructions: Resume on 10/11/20. mirtazapine 30 mg Tablet 30 mg PO DAILY RF: 0 Hold Instructions: Resume on 10/11/20. omeprazole 20 mg Capsule,Delayed Release(Dr/Ec) 20 mg PO DAILY RF: 0 Hold Instructions: Resume on 10/11/20. sertraline 50 mg Tablet 50 mg PO DAILY RF: 0 Hold Instructions: Resume on 10/11/20. Date of admission: 08/02/20 22:51 Primary Care Provider: PHYSICIAN,SAP BOBJ DEVELOPER Admitting Provider: Sukumar Soto Attending physician on admission: Maxine Munoz Condition: Serious
--- NOTE | 2020-10-19 09:29 | PM.TDS ---
Transfer Discharge Sum: Prov Provider Date of admission: 08/02/20 22:51 TRANSFERED ON 08/14/20 Primary care physician: PHARMACY INTAKE COORDINATOR PHYSICIAN Admitting clinician: Sukumar Soto MD Consults: 08/03/20 04:55 Consult to Physician Routine Comment: MESSAGE GIVEN TO DR. RDZ Consulting Provider: Jesenia Rdz physically impaired teacher/MD group to consult: Cardiology Reason for consultation: SVT Has provider been notified: Yes 08/04/20 14:41 Consult to Physician Routine Comment: SPOKE WITH DR. OCAMPO Consulting Provider: Oriana Ocampo physically impaired teacher/ group to consult: Structural Steel Erector Reason for consultation: COVID deteroration Has provider been notified: Yes 08/10/20 08:43 Consult to Physician Routine Comment: CALLED OFFICE WITH CONSULT Consulting Provider: Pedrito Valencia physically impaired teacher/ group to consult: RENAL Reason for consultation: MIKEY, Hperkalemia Has provider been notified: Yes DS: Admitting Diagnosis Admitting Diagnosis Admitting Diagnosis: ACUTE RESPIRATORY FAILURE DS: Discharge Diagnosis Discharge Diagnosis (1) ARDS (adult respiratory distress syndrome): Code(s): J80 - Acute respiratory distress syndrome Status: Acute Assessment and Plan: On nimbex drip and ventilator, pt had tube exchanger and transfer to [facility] [place] for ECMO. (2) Suspected COVID-19 virus infection: Code(s): Z20.822 - Contact with and (suspected) exposure to COVID-19 Status: Acute Assessment and Plan: (2) Suspected COVID-19 virus infection: Code(s): Z20.822 - Contact with and (suspected) exposure to COVID-19 Status: Acute Assessment and Plan: Covid negative, awaiting GOLD test (3) Swelling of right upper extremity: Code(s): M79.89 - Other specified soft tissue disorders Status: Acute Transfer Discharge Sum: Med Medications Active and Home Medications: Home Medications amlodipine 10 mg PO DAILY 08/03/20 [History Confirmed 08/03/20] mirtazapine 30 mg PO DAILY 08/03/20 [History Confirmed 08/03/20] omeprazole 20 mg PO DAILY 08/03/20 [History Confirmed 08/03/20] sertraline 50 mg PO DAILY 08/03/20 [History Confirmed 08/03/20] simvastatin 20 mg PO HS 08/03/20 [History Confirmed 08/03/20] tamsulosin 0.4 mg PO DAILY 08/03/20 [History Confirmed 08/03/20] Transfer Discharge Sum: Hosp Hospital Course Hospital course: Inocente Aziza Brink is a 55 year old male Pt with covid pneumonia intubated on nimbex drip, ICU decided pt needs transfer to higher level of care [facility].The patient is now a candidate for ECMO treatment and I have spoken to cardiothoracic surgery at [facility] who has graciously accepted him to be transferred. Time Spent with Patient Time attestation: Total time spent providing and/or coordinating transfer services:40 minutes on day of discharge Exam Narrative: Exam Narrative: Exam Narrative: Exam Narrative: Pt is on a ventilator intubated in icu Neuro sedated and paralysed Extremities no edema
== END 2020-08-14 20:00 | disposition short-term general hospital (02) | DRG 130 ==
LOC: ANHED 21:27 → ANHIMU 23:52 → ANHICU 08-05 15:56 → ANHIMU 08-17 10:19
PROVIDERS: Internal Medicine; Internal Medicine Critical Care Medicine; Internal Medicine Infectious Disease; Physician Assistant; Admitting Provider Family Medicine; Emergency Provider Emergency Medicine; Visit Provider Family Medicine
DX: U07.1 COVID-19 (principal); J12.82 Pneumonia due to coronavirus disease 2019; J80 Acute respiratory distress syndrome; I10 Essential (primary) hypertension; E78.5 Hyperlipidemia, unspecified; I82.B11 Acute embolism and thrombosis of right subclavian vein; I82.A11 Acute embolism and thrombosis of right axillary vein; I82.611 Acute embolism and thrombosis of superficial veins of right upper extremity; I82.409 Acute embolism and thrombosis of unspecified deep veins of unspecified lower extremity; R11.0 Nausea; R19.7 Diarrhea, unspecified; R50.9 Fever, unspecified; I47.1 Supraventricular tachycardia; N17.9 Acute kidney failure, unspecified; R73.9 Hyperglycemia, unspecified; T38.0X5A Adverse effect of glucocorticoids and synthetic analogues, initial encounter; Y92.9 Unspecified place or not applicable; R53.1 Weakness; R20.0 Anesthesia of skin; J43.9 Emphysema, unspecified; R43.8 Other disturbances of smell and taste
CPT/HCPCS: 31500; 36415; 36556; 36569; 36600; 71045; 71250; 76775; 80048; 80053; 82375; 82436; 82570; 82728; 82805; 82948; 83036; 83050; 83605; 83615; 83735; 83880; 84100; 84133; 84300; 84439; 84443; 84450; 84460; 84478; 84480; 84484; 85025; 85027; 85055; 85380; 85610; 85730; 85999; 86140; 86480; 86703; 86900; 86901; 87040; 87070; 87205; 87449; 87899; 93005; 93971; 94002; 94003; 94640; 96365; 96368; 96375; 99291; A9270; C1751; C9113; C9803; G0432; J0153; J0456; J0696; J1100; J1644; J1650; J1815; J1940; J2060; J2250; J2270; J2704; J3010; J7030; J7120; U0003; U0005